=== PATIENT | male | born 1955 | race Caucasian/White ===

== ENCOUNTER 2019-05-28 04:56 | Observation (INO) ==
--- NOTE | 2019-04-25 13:40 | PAT Medication Instructions ---
Medication Instructions Date of Service April 25, 2019 Home Medications celecoxib [Celebrex] 100 mg PO QAM ASK your surgeon for instructions celecoxib [Celebrex] 100 mg PO QAM Other Notes If you have any questions please call us at [phone] or [phone] or [phone] or [phone]
--- NOTE | 2019-04-26 08:25 | Anesthesiology Consultation ---
Date of Service April 26, 2019 Assessment & Plan (1) Encounter for pre-operative examination: Chart Review Chart Review: Acceptable Risk for Surgery (pending pre op testing (EKG, CXR and labs)) and Patient seen in Pre Admission Testing Teaching & Discussion Instructed NPO after midnight before surgery, except medications with 15 cc of water. Medication instructions provided according to the PAT guidelines. History Surgery Operation Date: 05/28/19 07:00 Proposed Procedures p Left Total Knee Arthroplasty - Serafin Michael MD Height/Weight Height: 5 ft 7 in Weight: 82.8 kg Allergies Allergy/AdvReac Type Severity Reaction Status Date / Time No Known Drug Allergies Allergy Verified 04/19/19 08:58 Medications Home Medications Medication Instructions Recorded Confirmed Last Taken celecoxib [Celebrex] 100 mg PO QAM 04/19/19 04/19/19 Unknown Past Medical History Medical History (Updated 04/26/19 @ 08:31 by Wilfrido Borrero) Osteoarthritis Exercise / Class Metabolic Activity 1 > 8 Run/Swim/Ski/Tennis Past Surgical History Surgical History (Updated 04/26/19 @ 08:21 by Wilfrido Borrero) History of dental surgery Two implants placed with sedation History of tonsillectomy Hx of colonoscopy Past Anesthesia History No Hx of Anesthesia Complications and No Family Hx of Anesthesia Complications History of PONV No Hx of PONV and Hx of Motion Sickness Social History Smoking Status: Never smoker Do You Dip or Chew Tobacco: No Hx Alcohol Use: Yes alcohol intake frequency: a few times a month Hx Substance Use: No Review of Systems Pt denies any recent chest pain, shortness of breath, palpitations, cough, fever or URI. +congestion Physical Exam Vital Signs BP: 122/78 P: 67bpm SPO2: 96% RA T: 98.5 F R: 16 ENMT Mouth: + dental restorations (few crowns and two implants); no chipped teeth and no loose teeth Thyromental Distance: < 3.5 Finger Breadths (3) Mallampati Class: II Neck normal visual inspection; neck extension not limited Respiratory normal respiratory effort Auscultation: lungs clear to auscultation bilaterally Cardiovascular Rate/Rhythm: regular rate and regular rhythm Heart Sounds: + murmur (I/ systolic) Vessels: no carotid bruit Extremities: no edema
--- NOTE | 2019-04-26 09:13 | XRay Report ---
XR chest Pre-admission PA/Lat HISTORY: Preop. COMPARISON: None. FINDINGS: The lungs are clear. Cardiac silhouette is normal in size. No pleural effusions. No pneumot horax. IMPRESSION: No acute process. ACT 112: Negative or not required by law. Electronically signed by: Ethan Mcpherson M.D. 04/26/2019 9:11 AM
[2019-04-26 10:24] LABS: Basophils # (auto) 0.02 K/uL (0-0.2); Basophils % (auto) 0.3 %; Eosinophils # (auto) 0.24 K/uL (0-0.5); Eosinophils % (auto) 3.2 %; Hematocrit (blood only) 44.8 % (42-52); Hemoglobin 15.7 g/dL (14.0-18.0); Immature Granulocytes # (auto) 0.01 K/uL (0.00-0.02); Immature Granulocytes % (auto) 0.1 %; Lymphocytes # (auto) 0.82 K/uL (1.2-3.4); Lymphocytes % (auto) 10.9 %; Mean Corpuscular Hemoglobin 32.8 pg (25-34); Mean Corpuscular Volume 93.7 fL (80-100); Mean Platelet Volume 9.1 fL (7.4-10.4); Monocytes # (auto) 0.86 K/uL (0.11-0.59); Monocytes % (auto) 11.4 %; Neutrophils # (auto) 5.58 K/uL (1.4-6.5); Neutrophils % (auto) 74.1 %; Platelet Count 184 K/uL (130-400); RDW Coefficient of Variation 12.8 % (11.5-14.5); RDW Standard Deviation 44.1 fL (36.4-46.3); Red Blood Count 4.78 M/uL (4.7-6.1); White Blood Count 7.53 K/uL (4.8-10.8)
[2019-04-26 10:31] LABS: BUN Creatinine Ratio 18.8 (10-20); Calcium 8.9 mg/dl (8.5-10.1); Creatinine Clr Calc Pharmacy 73.4 ml/min; Est GFR (African American) 86.1; Est GFR (Non-African American) 74.3; Potassium 4.2 mmol/L (3.5-5.1)
[2019-04-26 10:37] LABS: Partial Thromboplastin Time 28.2 Seconds (21.0-31.0); Prothrombin Time 10.1 Seconds (9.0-12.0)
--- NOTE | 2019-05-25 15:55 | History and Physical Report ---
DATE OF ADMISSION: 05/28/2019 CHIEF COMPLAINT: Bilateral knee pain and discomfort, left side greater than right. 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 He has a long history of bilateral knee pain and discomfort that I have been following for the past 10 years. He has got chronic ACL deficiencies from his wrestling injuries. He has developed increased pain and discomfort, which has become less successful with conservative care. He has been through various types of anti-inflammatories and had injections in his knees every 3 months for the past 5+ years. He has a limited walking tolerance. He is less able to maintain an active lifestyle. He has nighttime pain. He has more and more pain with exercise and would like to have his left knee fixed. PAST MEDICAL HISTORY: Noncontributory. PREVIOUS SURGERIES: None. ALLERGIES: None. CURRENT MEDICATIONS: Include Celebrex. SOCIAL HISTORY: Significant for a 63-year-old male. 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 He does not smoke. No significant alcohol intake. FAMILY HISTORY: Noncontributory. REVIEW OF HISTORY: Negative for diabetes, neurologic problem, vascular problems or bleeding disorders. Denies any chest pain or shortness of breath. No history of DVT or PE. No known bleeding problems. PHYSICAL EXAMINATION: GENERAL: Reveals a healthy, pleasant, middle-aged male. He looks to be in excellent health. HEENT: Benign. NECK: Supple with no lymphadenopathy. LUNGS: Clear to auscultation. HEART: Has regular rate and rhythm. ABDOMEN: Soft, nontender, nondistended. EXTREMITIES: Grossly neurovascularly intact except as follows: Examination of both knees reveals patient walks with a varus alignment to his knees. Examination of the left knee reveals varus alignment with a moderate-sized knee effusion. Range of motion is about 5 degrees short of full extension to about 105-110 degrees of flexion. Pretty stiff with flexion and pain. He has got a positive Mary. No pivot. No varus or valgus instability. No pain with hip motion. He is neurologically intact. X-RAYS: X-rays of the left knee were reviewed. It shows advanced left knee medial compartment DJD. He has got complete loss of his medial joint space. He has subchondral sclerosis. He has osteophytes off the medial femoral condyle and medial tibial plateau. He has got pretty similar, but less severe disease in his right knee. 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 He has got chronic anterior cruciate ligament deficiencies as well. He failed conservative treatment and would like to proceed with left knee replacement. PLAN: We will take him to the operating room and do a left knee replacement. The risks and benefits of this procedure were explained to the patient and include but not limited to DVT, PE, , infection, neurological injury, vascular injury, bleeding problem, pain, limited range of motion, stiffness, failure to relieve his symptoms, incomplete relief of symptoms, need for further surgery in the future, fracture, leg length inequality, nerve palsy, persistent pain, etc. The patient understands and desires to proceed. Informed consent was obtained.
[2019-05-28] MEDS ORDERED: TRANEXAMIC ACID / 0.7% NACL 1000MG/100ML BAG IV ONE (05:39)
[2019-05-28] MEDS ORDERED: FAMOTIDINE 20 MG TAB PO SCH (06:00)
[2019-05-28] MEDS ORDERED: METOCLOPRAMIDE HCL 10 MG TABLET PO SCH (06:00)
[2019-05-28] MEDS ORDERED: GABAPENTIN 600 MG DOSE PO SCH (06:00)
[2019-05-28] MEDS ORDERED: CEFAZOLIN 2000MG 2,000 MG/15 ML SYR IV SCH (06:00)
[2019-05-28] MEDS ORDERED: LR 500ML BOLUS, THEN 15ML/HR IV SCH (06:00)
[2019-05-28] MEDS ORDERED: SCOPOLAMINE 1.5 MG TDSY TD SCH (06:00)
[2019-05-28] MEDS ORDERED: TRANEXAMIC ACID 1,000 MG **IV Intra-op IV SCH (06:00)
[2019-05-28] MEDS ORDERED: LR 60ML/HR IV SCH (06:00)
[2019-05-28] MEDS ORDERED: TRANEXAMIC ACID 1,000 MG **IV Pre-op IV SCH (06:00)
[2019-05-28] MEDS ORDERED: BUPIVACAINE LIPOSOME/PF 266 MG, BUPIVACAINE/EPINEPHRINE 50 ML, SODIUM CHLORIDE 0.9% 30 ... INFIL SCH (06:00)
[2019-05-28] MEDS ORDERED: ACETAMINOPHEN 500 MG TAB PO SCH (06:00)
[2019-05-28] MEDS ORDERED: MIDAZOLAM HCL 1 MG/ML 2ML VIAL ONE ×2 (06:27)
[2019-05-28] MEDS ORDERED: fentaNYL citrate 100 MCG/2 ML VIAL ONE ×2 (06:27→07:23)
[2019-05-28] MEDS ORDERED: BUPIVACAINE 0.5 % 5 MG/1 ML PF 10ML VIAL ONE (06:31)
[2019-05-28] MEDS ORDERED: BUPIVACAINE/EPINEPHRINE 0.25% 1:200,000 30 ML VIAL ONE ×2 (06:31→06:35)
[2019-05-28] MEDS ORDERED: ePHEDrine sulfate 50 MG/ML AMP IV PRN (06:33)
[2019-05-28] MEDS ORDERED: ATROPINE SULFATE 0.1 MG/ML 10ML SYR IV PRN (06:33)
[2019-05-28] MEDS ORDERED: fentaNYL citrate 100 MCG/2 ML VIAL IV PRN (06:33)
[2019-05-28] MEDS ORDERED: ONDANSETRON INJ 2 MG/ML 2 ML VIAL IV PRN ×2 (06:33→09:45)
[2019-05-28] MEDS ORDERED: HYDROmorphone INJ 2 MG/ML SYR/VIAL IV PRN (06:33)
[2019-05-28] MEDS ORDERED: BACITRACIN INJ 50,000 UNIT VIAL ONE (06:35)
[2019-05-28] MEDS ORDERED: SODIUM CHLORIDE 0.9% PF 50 ML VIAL ONE (06:35)
[2019-05-28] MEDS ORDERED: BUPIVACAINE LIPOSOME 1.3% 266 MG/20 ML VIAL ONE (06:35)
--- NOTE | 2019-05-28 06:55 | History & Physical Bridge Note ---
Date of Service May 28, 2019 History & Physical Bridge Note I have examined the patient, reviewed the History & Physical and in the interval since the performance of the History & Physical I have noted the following changes of clinical significance: no changes noted
[2019-05-28] MEDS ORDERED: ONDANSETRON INJ 2 MG/ML 2 ML VIAL ONE (07:02)
[2019-05-28] MEDS ORDERED: PROPOFOL IV EMULSION 10 MG/ML 20 ML VIAL IV ONE ×2 (07:02)
[2019-05-28] MEDS: [UNRECOGNIZED DRUG - REMARK] SCH ×2 (08:05→23:07)
--- NOTE | 2019-05-28 08:40 | Post Operative Brief Note ---
PG Immediate Post Op with CF Date of Surgery May 28, 2019 Pre & Post Diagnosis Operation Date: 05/28/19 07:00 Pre-Op Diagnosis: Left Knee Advanced Degenerative Joint Disease Post-Op Diagnosis: Left Knee Advanced Degenerative Joint Disease I identified the patient and participated in the time-out.: Yes Procedure Operation Date: 05/28/19 07:00 Actual Procedures p Left Total Knee Arthroplasty(Left) - Serafin Michael MD Surgeon Serafin Michael MD Customer Service Supervisor Magali, PAC Estimated Blood Loss 50 Findings Consistent with Post-Op Diagnosis Fluids 700 cc Specimens Specimen Description: A. Left Knee Bone and Tissue Drains Urbina Catheter (A 16 Armenian urbina catheter was inserted by MURALI Garcia, without difficulty, clear yellow urine obtained, output to be monitored by Anesthesia.) Anesthesia Type General Regional Complications none Disposition Accompanied Patient To Recovery: No Disposition: Recovery Room
--- NOTE | 2019-05-28 08:52 | Operative Report ---
Post Operative Report Pre & Post Diagnosis Operation Date: 05/28/19 07:00 Pre-Op Diagnosis: Left Knee Advanced Degenerative Joint Disease Post-Op Diagnosis: Left Knee Advanced Degenerative Joint Disease I identified the patient and participated in the time-out.: Yes Procedure Operation Date: 05/28/19 07:00 Actual Procedures p Left Total Knee Arthroplasty(Left) - Serafin Michael MD Surgeon Serafin Michael MD Distiller Magali, PAC Estimated Blood Loss 50 Findings Consistent with Post-Op Diagnosis Operative findings revealed advanced left knee DJD with extensive grade 4 [id number] disease of the medial femoral condyle medial tibial plateau with punctate bleeding in the medial femoral condyle. He had a varus deformity to his knee with a moderate-sized joint effusion. The patella femoral joint and the lateral compartment revealed some age-related changes only. He did have osteophytes of the medial femoral condyle medial tibial plateau. Fluids 700 cc Specimens Left knee sent for pathology. Drains None. 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 I been treating for the past 10 years with oral medicines as well as intermittent injections. This came less successful over time to the left knee was by the more than the right. X-ray showed advanced DJD. He elected proceed with left total knee arthroplasty. Description of Procedure Operative implants consist of: 1. Biomet Vanguard size 67.5 left stabilized femoral component. 2. Biomet size 79 tibial tray. 3. 10 mm posterior stabilized polyethylene insert. 4. 31 x 8 all poly-patella. Patient was taken to the operating room identified and placed in the operating table supine position protectors were properly padded. IV antibiotics were 5 by anesthesia team. A spinal anesthetic been implemented holding area. And abductor canal block is also been implemented. Salcedo catheter was placed in sterile fashion the left thigh tourniquet was then placed in the left lower extremity was then prepped and draped in usual sterile fashion. Left leg was elevated and exsanguinated with use of an Esmarch interspace at 3 mmHg. Upon making the initial incision the patient was still moving and feeling the leg so a general anesthetic was implemented. Once this was complete the incision was continued down that the leg. This extended from just superior to the patella and just medial to the tibial tubercle. Sharp dissection was cut through subcutaneous tissue down to the extensor mechanism. Medial parapatellar arthrotomy incision was made. Some subperiosteal dissection was carried out medially for the fat pad resected from each patella tendon. The lateral patellofemoral ligament was released and the patella was subluxated laterally. The knee was flexed. The osteophytes were taken off the distal femur P the ACL PCL were then released from the distal femur and the tibia subluxated anteriorly. The external tibial alignment jig was then placed in the interface of tibia and adjusted 14 mm medially. Proximal tibial cut was made to move out a millimeter bone from most efficient aspect of the medial tibial plateau. Some osteophytes were taken off medial and posterior medially. The tibia sized to a size 79. Attention drawn the femur. The distal femur then with a sharp drop with intramedullary canal was suction. A left 6 degree valgus cutting guide was placed. This femoral cutting block was pinned in place. Distal femoral cut was made to take an additional 3 mm of bone off distal femur. Femur was then sized to a size 67.5. Did downsize a slightly. The AP cutting block was pinned parallel to the epicondylar axis which was 5 degrees of external rotation with anterior cut, anterior chamfer, posterior cut, posterior chamfer cuts were made. Box cutting guide was placed and adjusted slightly lateral and the box cut was made. The knee was flexed with the remnants of medial lateral menisci were excised. The osteophytes were taken off the posterior aspect the femur. A trial femoral component was placed for the tibial tray was then pinned in maximum external rotation and the drill and stem punch we used to create defect in proximal tip for the tibial tray. The knee was then trialed the 10 mm insert fit most appropriately. Attention drawn the patella. The patella was cleaned of all soft tissues. Patella thickness measured 23 mm in thickness was cut down to 13. Was sized to a size 31 patella. I did downsize this just slightly to maximize patellofemoral tracking. The locals were drilled for 31 patella. Lateral osteophytes removed. Patella button was placed. Knee was taken through range of motion patella tracked nicely with no thumbs test. Attention turned to placing the permanent components. All trial components removed. A bone plug was placed in the disc femur limit blood blood loss. A double batch Palacos G cement was mixed. A Biomet Vanguard size 67.5 left posterior by femoral component, size 79 tibial tray, 10 mm posterior bite polyethylene insert, 31 x 8 all poly-patella were then cemented in place. Knees brought in full extension total cement hardened. Final cement check was then performed. Pericapsular tissues were injected with total 100 cc of combination of 20 cc of Exparel, 30 cc normal saline, 50 cc of quarter percent Marcaine with epinephrine. Patient did receive 1 g of tranexamic acid per the tourniquet was then let down for final tourniquet time 59 minutes. Hemostasis assured with electrocautery. The extensor mechanism then closed with a combination 1 PDS suture #1 Vicryl suture in [id number] fashion. Extensor mechanism checked found to be intact the subcutaneous tissue then closed with 2 Dexon suture in a buried interrupted fashion skin was closed skin brent. Leg was then cleaned dried and sterile dressing composed Xeroform, 4 x 4's, sterile cast padding, Sebastián bandage were applied. Patient transferred brought out of general anesthesia and transferred to the recovery room in stable condition. Patient tolerated procedure well and there were no complications. I attest to the content of the Intraoperative Record and any orders documented therein. Any exceptions are noted below.
--- NOTE | 2019-05-28 09:09 | Anesthesiology Progress Note ---
Date of Service May 28, 2019 Anesthesia Post Procedure Vital Signs Vital Signs: Temp Pulse Pulse Resp BP Pulse Ox 05/28/19 09:05 77 15 123/68 96 05/28/19 08:55 75 16 117/67 100 05/28/19 08:45 36.6 C 72 12 140/65 98 05/28/19 05:42 36.8 C 66 18 95 Transfer of Care Handoff Completed per policy Notes Mental Status: alert / awake / arousable and participated in evaluation Patient Amnestic to Procedure: Yes Nausea / Vomiting: adequately controlled Pain: adequately controlled Airway Patency, RR, SpO2: stable & adequate BP & HR: stable & adequate Hydration State: stable & adequate Anesthetic Complications: no major complications apparent and Pt Satisfied with anesthetic care
--- NOTE | 2019-05-28 09:14 | XRay Report ---
XR knee LT 1 or 2V routine CLINICAL HISTORY: 63 years-old Male presenting with Surgical Post Op. TECHNIQUE: Frontal and crosstable lateral views of the left knee were obtained. COMPARISON: None. FINDINGS: Postsurgical changes of total left knee arthroplasty with patellar resurfacing. Expected intra-articu lar and soft tissue emphysema. Overlying skin brent in place. No malalignment. No periprosthetic fr acture or lucency. IMPRESSION: Expected postsurgical appearance status post total left knee arthroplasty with patellar resurfacing. ACT 112: Negative or not required by law. Electronically signed by: Segundo Cutler M.D. 05/28/2019 9:13 AM
[2019-05-28] MEDS ORDERED: METOCLOPRAMIDE HCL INJ 5 MG/ML 2 ML VIAL IV PRN (09:45)
[2019-05-28] MEDS ORDERED: TAMSULOSIN HCL 0.4 MG CAP PO PRN (09:45)
[2019-05-28] MEDS ORDERED: NALOXONE HCL 0.4 MG/1 ML VIAL/CARP IV PRN (09:45)
[2019-05-28] MEDS ORDERED: ALUMINUM/MAGNESIUM SUSP 30 ML UDC PO PRN (09:45)
[2019-05-28] MEDS ORDERED: HYDROmorphone HCL 2 MG TAB PO PRN (09:45)
[2019-05-28] MEDS ORDERED: bisacodyL 10 MG SUPP PR PRN (09:45)
[2019-05-28] MEDS ORDERED: HYDROmorphone INJ 0.5 MG/0.5 ML SYR IV PRN (09:45)
[2019-05-28] MEDS ORDERED: MAGNESIUM HYDROXIDE SUSP 30 ML UDC PO PRN (09:45)
[2019-05-28] MEDS: SODIUM CHLORIDE 0.9% 1000ML 1,000 ML IV SCH ×3 (09:56→22:37)
[2019-05-28] MEDS: MULTIVITAMIN TAB PO SCH (10:39)
[2019-05-28] MEDS: DOCUSATE SODIUM 100 MG CAP PO SCH ×2 (10:39→22:17)
[2019-05-28] MEDS: TAPENTADOL HCL ER 50 MG TABCR PO SCH ×2 (10:40→22:17)
[2019-05-28] MEDS: ASPIRIN 81 MG ECTAB PO SCH ×2 (11:53→22:17)
[2019-05-28] MEDS: KETOROLAC 30 MG/ML VIAL IV SCH ×3 (12:12→23:37)
[2019-05-28] MEDS: CEFAZOLIN 2000MG 2,000 MG/15 ML SYR IV SCH ×2 (12:14→22:17)
[2019-05-28] MEDS: ACETAMINOPHEN 500 MG TAB PO SCH ×3 (13:52→22:17)
[2019-05-28] MEDS ORDERED: TRANEXAMIC ACID / 0.7% NACL 1,000 MG/100 ML BAG IV SCH (14:43)
[2019-05-28] MEDS: CHECK SCOPOLAMINE PATCH PLACEMENT SCH ×2 (15:53→23:37)
[2019-05-28] MEDS: ASCORBIC ACID 500 MG TAB PO SCH (16:03)
[2019-05-28] MEDS: FERROUS GLUCONATE 324 MG TAB PO SCH (16:04)
--- NOTE | 2019-05-28 19:11 | Progress Note ---
DATE: 05/28/2019 SUBJECTIVE: A 63-year-old gentleman postop from left knee replacement. He is doing quite well. He has been a bit groggy and feeling foggy, but just starting to have some pain. Just feels kind of an ache. No chest pain or shortness of breath. Not feeling dizzy or lightheaded. OBJECTIVE: VITAL SIGNS: Temperature 36.4. Vital signs stable. GENERAL: Shows a pleasant, middle-aged male. He is sitting up in bed and talking to his . He looks pretty comfortable. LUNGS: Clear to auscultation. HEART: Has a regular rate and rhythm. ABDOMEN: Soft, nontender, nondistended. EXTREMITIES: Grossly neurovascularly intact except as follows: Examination of the left leg reveals the leg to be well aligned. The dressing is clean, dry, and intact. He can dorsiflex and plantarflex his foot appropriately. He is neurologically intact. X-RAYS: X-rays of the left knee from the recovery room are reviewed. It shows a cemented posterior stabilized total knee arthroplasty. Components looked to be in good position. No signs of problems. ASSESSMENT: A 63-year-old gentleman postoperative from a left knee replacement, doing well. His pain is controlled. He is neurologically intact. Feeling a little bit foggy, but getting better as time goes on. PLAN: 1. DVT prophylaxis including thigh-high TEDs, SCDs, and aspirin twice a day. 2. PT/OT. Weight bear as tolerated. Left total knee protocol. 3. Pain control, doing pretty well with current pain regimen. 4. IV antibiotics x24 hours. 5. Disposition: Plan to discharge to home with likely some home health once adequately recovered and medically stable.
[2019-05-28] MEDS: SENNA 8.6 MG TAB PO SCH (22:17)
[2019-05-29] MEDS: [UNRECOGNIZED DRUG - REMARK] SCH ×4 (02:02→02:05)
[2019-05-29] MEDS: ACETAMINOPHEN 500 MG TAB PO SCH ×3 (05:03→20:25)
[2019-05-29] MEDS: KETOROLAC 30 MG/ML VIAL IV SCH ×3 (05:03→17:24)
[2019-05-29 07:13] LABS: Hematocrit (blood only) 38.5 % (42-52); Hemoglobin 13.3 g/dL (14.0-18.0); Mean Corpuscular Hemoglobin 32.3 pg (25-34); Mean Corpuscular Hgb Conc 34.5 g/dL (32-36); Mean Corpuscular Volume 93.4 fL (80-100); Mean Platelet Volume 8.8 fL (7.4-10.4); Platelet Count 156 K/uL (130-400); RDW Coefficient of Variation 13.3 % (11.5-14.5); RDW Standard Deviation 45.6 fL (36.4-46.3); Red Blood Count 4.12 M/uL (4.7-6.1); White Blood Count 6.32 K/uL (4.8-10.8)
[2019-05-29 07:39] LABS: BUN Creatinine Ratio 13.7 (10-20); Calcium 7.9 mg/dl (8.5-10.1); Creatinine Clr Calc Pharmacy 70.4 ml/min; Est GFR (African American) 82.4; Est GFR (Non-African American) 71.1; Potassium 4.4 mmol/L (3.5-5.1)
[2019-05-29] MEDS ORDERED: dexAMETHasone 4 MG TAB PO SCH (08:00)
--- NOTE | 2019-05-29 08:17 | Anesthesiology Progress Note ---
Date of Service May 29, 2019 Anesthesia Post Procedure Vital Signs Vital Signs: Temp Pulse Pulse Resp BP Pulse Ox 05/29/19 07:05 37.3 C 56 L 22 111/68 96 05/29/19 03:35 37.1 C 64 16 116/78 96 05/28/19 23:12 37.0 C 51 L 16 130/73 98 05/28/19 19:29 36.7 C 49 L 17 124/71 99 05/28/19 15:23 36.4 C L 52 L 17 118/73 98 05/28/19 12:45 50 L 12 115/72 100 05/28/19 11:45 67 14 110/69 91 05/28/19 10:44 47 L 16 114/69 98 05/28/19 10:15 52 L 14 118/72 96 05/28/19 09:45 36.5 C 53 L 14 126/70 96 05/28/19 09:25 36.2 C L 58 L 15 117/69 95 05/28/19 09:15 65 15 107/70 94 05/28/19 09:05 77 15 123/68 96 05/28/19 08:55 75 16 117/67 100 05/28/19 08:45 36.6 C 72 12 140/65 98 Notes Mental Status: alert / awake / arousable and participated in evaluation Patient Amnestic to Procedure: Yes Nausea / Vomiting: adequately controlled Pain: adequately controlled Airway Patency, RR, SpO2: stable & adequate BP & HR: stable & adequate Hydration State: stable & adequate Anesthetic Complications: no major complications apparent and Pt Satisfied with anesthetic care
[2019-05-29] MEDS: ASPIRIN 81 MG ECTAB PO SCH ×2 (08:51→20:24)
[2019-05-29] MEDS: DOCUSATE SODIUM 100 MG CAP PO SCH ×2 (08:52→20:25)
[2019-05-29] MEDS: FERROUS GLUCONATE 324 MG TAB PO SCH ×2 (08:52→17:12)
[2019-05-29] MEDS: MULTIVITAMIN TAB PO SCH (08:52)
[2019-05-29] MEDS: ASCORBIC ACID 500 MG TAB PO SCH ×2 (08:52→17:12)
[2019-05-29] MEDS: TAPENTADOL HCL ER 50 MG TABCR PO SCH ×2 (08:53→20:27)
--- NOTE | 2019-05-29 11:05 | Progress Note ---
DATE: 05/29/2019 SUBJECTIVE: A 63-year-old gentleman postop day 1 from a left knee replacement. He is doing okay. Having quite a bit more pain today than he had last evening. No chest pain or shortness of breath. Not feeling dizzy or lightheaded. He has had some intermittent confusion. OBJECTIVE: VITAL SIGNS: Temperature 37.3. Vital signs stable. GENERAL: Shows a pleasant, middle-aged male. He is sitting in his wheelchair at bedside. He looks reasonably comfortable. He is currently awake, alert and oriented. EXTREMITIES: Examination of the left knee reveals the dressing to be clean, dry, and intact. He can dorsiflex and plantarflex his foot appropriately. He is neurologically intact. Brisk refill. LABORATORY DATA: Hemoglobin is 13.3. Hematocrit 38.5. Electrolytes are stable. ASSESSMENT: A 63-year-old gentleman postop day 1 from a left total knee replacement, doing reasonably well. Had a little bit of intermittent confusion, but did not get much sleep last night. He has got more pain than he had yesterday but nothing out of the ordinary. PLAN: 1. DVT prophylaxis including thigh-high TEDs, SCDs, and aspirin twice a day. 2. PT/OT. Weight bear as tolerated. Left total knee protocol. 3. Pain control, doing okay with current pain regimen. We are going to encourage him to take some pain pills. 4. Disposition: Plan to discharge to home with some home health once adequately recovered and medically stable.
[2019-05-29] MEDS: SENNA 8.6 MG TAB PO SCH (20:25)
[2019-05-30] MEDS: KETOROLAC 30 MG/ML VIAL IV SCH ×2 (02:11→06:19)
[2019-05-30] MEDS: ACETAMINOPHEN 500 MG TAB PO SCH ×2 (05:17→09:35)
[2019-05-30] MEDS: DOCUSATE SODIUM 100 MG CAP PO SCH (09:28)
[2019-05-30] MEDS: TAPENTADOL HCL ER 50 MG TABCR PO SCH (09:29)
[2019-05-30] MEDS: ASCORBIC ACID 500 MG TAB PO SCH (09:29)
[2019-05-30] MEDS: MULTIVITAMIN TAB PO SCH (09:30)
[2019-05-30] MEDS: ASPIRIN 81 MG ECTAB PO SCH (09:30)
--- NOTE | 2019-05-30 09:53 | Progress Note ---
DATE: 05/30/2019 SUBJECTIVE: A 63-year-old gentleman postop day 2 from a left knee replacement. He is doing pretty well. His pain has much improved today. No chest pain or shortness of breath. Not feeling dizzy or lightheaded. Therapy went pretty well. OBJECTIVE: VITAL SIGNS: Temperature 36.7. Vital signs stable. GENERAL: Shows a pleasant, middle-aged male. He is sitting up in his bed, using his computer this morning. EXTREMITIES: Examination of the left leg reveals the leg to be well aligned. Dressing is clean, dry and intact. Calf is soft and supple. Mild swelling. He is neurologically intact. ASSESSMENT: A 63-year-old gentleman postop day 2 from a left knee replacement, doing pretty well. His pain is controlled. He is neurologically intact. PLAN: 1. DVT prophylaxis including thigh-high TEDs, SCDs, and aspirin twice a day. 2. PT/OT. Weight bear as tolerated. Left total knee protocol. 3. Pain control, doing pretty well with current pain regimen. 4. Disposition: Plan to discharge to home later today if does okay in therapy and pain controlled.
[2019-05-30] MEDS: FERROUS GLUCONATE 324 MG TAB PO SCH (10:17)
--- NOTE | 2019-05-31 18:18 | Discharge Summary ---
ADMITTING PHYSICIAN AND SURGEON: Dr. Serafin Michael. ADMITTING DIAGNOSIS: Left knee degenerative joint disease. SURGERY PERFORMED: Left total knee arthroplasty. SECONDARY DIAGNOSIS: Noncontributory. CONSULTS: None obtained. HISTORY AND PHYSICAL EXAMINATION: Well documented in the patient's chart. HOSPITAL COURSE: The patient was admitted on 05/28/2019 underwent total knee arthroplasty, tolerated the procedure well. There were no complications. He was transferred to the PACU postoperatively and later to the orthopedic floor for further care. He was given Ancef for antibiotic prophylaxis, LM stockings, SCDs and aspirin for DVT prophylaxis. Hemoglobin, hematocrit and vital signs were monitored during his hospital stay and remained stable, did not require any blood transfusions. There were no complications. By postoperative day 2, he was tolerating a regular diet, pain was controlled with oral pain medicine. He was participating in physical therapy. Postop day 2, he was discharged home, set up with home health services. He was given printed discharge instructions as well as new prescriptions for extra strength Tylenol, aspirin and hydromorphone. Continue his home medicines. Continue physical therapy, weightbearing as tolerated, LM stockings. Follow up approximately 2 weeks postop or sooner if there are any problems or concerns.
== END 2019-05-30 10:26 | disposition home health service (06) ==
LOC: ASU 04:56 → INTOOBSV 08:44 → 3E 08:44

== ENCOUNTER 2021-05-13 07:43 | Inpatient (IN) ==
[2021-05-13] MEDS ORDERED: SODIUM CHLORIDE 0.9% 1000ML 1,000 ML IV STA (07:58)
[2021-05-13] MEDS ORDERED: ASPIRIN CHEW 324 MG PO STA (07:58)
[2021-05-13] MEDS ORDERED: NITROGLYCERIN SL 0.4 MG/TAB TAB SL PRN (07:58)
[2021-05-13] MEDS ORDERED: MIDAZOLAM HCL 1 MG/ML 2ML VIAL ONE (08:03)
[2021-05-13] MEDS ORDERED: niCARdipine HCL INJ 2.5 MG/ML 10 ML AMP ONE (08:03)
[2021-05-13] MEDS ORDERED: HEPARIN (PORCINE) 1000 UNIT/ML 10 ML (CATH LAB USE ONLY) ONE (08:03)
[2021-05-13] MEDS ORDERED: fentaNYL citrate 100 MCG/2 ML VIAL ONE ×2 (08:04→08:12)
[2021-05-13] MEDS ORDERED: NITROGLYCERIN/D5W 100MCG/ML 20ML SYR ONE (08:04)
[2021-05-13] MEDS ORDERED: HEPARIN SOD (PORCINE) 1000 UNIT/ML ONE (08:05)
[2021-05-13] MEDS ORDERED: ONDANSETRON INJ 2 MG/ML 2 ML VIAL ONE (08:06)
[2021-05-13] MEDS ORDERED: AMIODARONE / D5W 150 MG/100 ML BAG IV ONE (08:09)
[2021-05-13] MEDS ORDERED: AMIODARONE 150MG / 100ML D5W IV ONE (08:09)
[2021-05-13] MEDS ORDERED: fentaNYL citrate 100 MCG/2 ML VIAL IV ONE (08:12)
[2021-05-13] MEDS ORDERED: NITROGLYCERIN 2% OINTMENT 30GM TUBE EXT ONE (08:15)
[2021-05-13] MEDS ORDERED: NITROGLYCERIN 2% OINTMENT 30GM TUBE ONE (08:15)
[2021-05-13 08:19] LABS: Basophils # (auto) 0.03 K/uL (0-0.2); Basophils % (auto) 0.5 %; Eosinophils # (auto) 0.32 K/uL (0-0.5); Hematocrit (blood only) 45.7 % (42-52); Hemoglobin 16.2 g/dL (14.0-18.0); Immature Granulocytes # (auto) 0.01 K/uL (0.00-0.02); Immature Granulocytes % (auto) 0.2 %; Lymphocytes # (auto) 2.02 K/uL (1.2-3.4); Lymphocytes % (auto) 31.4 %; Mean Corpuscular Hemoglobin 33.1 pg (25-34); Mean Corpuscular Hgb Conc 35.4 g/dL (32-36); Mean Corpuscular Volume 93.3 fL (80-100); Mean Platelet Volume 8.9 fL (7.4-10.4); Monocytes % (auto) 10.9 %; Neutrophils # (auto) 3.35 K/uL (1.4-6.5); Platelet Count 278 K/uL (130-400); RDW Coefficient of Variation 13.1 % (11.5-14.5); RDW Standard Deviation 44.8 fL (36.4-46.3); White Blood Count 6.43 K/uL (4.8-10.8)
[2021-05-13] MEDS ORDERED: RAPID SEQUENCE INDUCTION BAG ONE (08:19)
[2021-05-13 08:22] LABS: iSTAT Creatinine 1.1 mg/dl (0.6-1.3); iSTAT Hemoglobin 15.6 g/dl (14.0-18.0); iSTAT Ionized Calcium 1.15 mmol/l (1.12-1.32); iSTAT Potassium 3.1 mmol/L (3.3-5.0)
[2021-05-13] MEDS ORDERED: Standard Conc 16mcg/mL; 8mg in 500mL IV SCH (08:22)
[2021-05-13] MEDS ORDERED: NOREPINEPHRINE/D5W 8 MG/508 ML IV ONE (08:22)
[2021-05-13] MEDS ORDERED: AMIODARONE 360MG / 200ML D5W IV ONE (08:26)
[2021-05-13] MEDS ORDERED: AMIODARONE / D5W 360 MG/200 ML BAG IV SCH (08:26)
[2021-05-13 08:32] LABS: Partial Thromboplastin Time 26.5 Seconds (21.0-31.0); Prothrombin Time 10.2 Seconds (9.0-12.0)
--- NOTE | 2021-05-13 08:33 | XRay Report ---
SINGLE VIEW CHEST CLINICAL HISTORY: Atypical chest pain. Heart alert. FINDINGS: An AP, portable, semierect chest radiograph is compared to study dated 04/26/2019. The exam ination is degraded by portable technique and apical lordotic positioning. The cardiac silhouette kimberley ears enlarged. The pulmonary vasculature is noncongested. There is bibasilar atelectasis. No airspace consolidation or large pleural effusion is identified. No pneumothorax is seen. The skeletal structu res appear osteopenic. The bony thorax is grossly intact. Arthritic change is noted in the shoulders. IMPRESSION: Mild cardiac enlargement with no acute cardiopulmonary abnormality. ACT 112: Negative or not required by law. Electronically signed by: Nicolas Kim M.D. 05/13/2021 8:31 AM
[2021-05-13 08:35] LABS: Albumin Level 3.4 gm/dl (3.4-5.0); BUN Creatinine Ratio 12.8 (10-20); Calcium 8.8 mg/dl (8.5-10.1); Creatinine Clr Calc Pharmacy 62.7 ml/min; Est GFR (Non-African American) 61.2 ml/min; Potassium 3.1 mmol/L (3.5-5.1)
--- NOTE | 2021-05-13 08:36 | Emergency Department Note ---
Impression & Plan ST elevation (STEMI) myocardial infarction, Cardiac arrest, CAD (coronary artery disease), cachil dehe coronary artery, Acute respiratory failure with hypoxia, Hypokalemia, Cardiogenic shock ED Provider Note NAME: NYASIA BROOKE AGE: 65 SEX: M : 1955 ARRIVES VIA: Walk-In INFORMANT: patient, ED PROVIDER(S): Tyler Huffman MD Chief Complaint: Chest pain HPI: Patient was initially seen by the physician medical office receptionist assistant Chris Noyola but he did relay a history that the patient had presented with centralized chest pain while working out this morning. Patient does have a history of some aortic valvular disease but had been seen by Estefania in the last year with reportedly no remarkable findings. The patient had developed some centralized chest pain with radiation to the bilateral upper extremities while lifting some weights although these were not heavy weights. Patient did have some nausea and diaphoresis. The patient did not take anything for pain prior to arrival. No reported trauma. The patient did present via triage and I assumed full care at the time that the patient went into a V. fib arrest. ROS: See HPI for pertinent positives and negatives. A total of 10 systems were reviewed and otherwise negative. Past medical history: See below Surgical history: See below Social history: See below Physical Exam: GENERAL: Ill in appearance, pale and diaphoretic, chest compressions being completed. EYE EXAM: Normal conjunctiva. PERRL, no anisocoria and EOM's grossly intact w/o pain. OROPHARYNX: Moist mucus membranes. Grossly normal dentition. NECK: Supple, no nuchal rigidity, no adenopathy. LUNGS: Clear to auscultation. [id number] breaths being given. HEART: NSR, no MRG. ABDOMEN: Abdomen soft, no masses. BACK: No CVA TTP. SKIN: No rashes and no bruising. UPPER EXTREMITIES: Upper extremities are grossly normal. LOWER EXTREMITIES: Grossly normal, no edema. NEURO EXAM: GCS 3. Differential diagnoses: Cardiac ischemia, aortic dissection, pulmonary embolism, pneumothorax, pneumonia, pericarditis, myocarditis, esophageal rupture, GERD, cholecystitis, pancreatitis, musculoskeletal, as well as other pathologies. Course: Patient was seen and evaluated the bedside. Full history physical exam was performed. EKG interpreted by me Sinus bradycardia rate of 59, normal intervals, normal axis, elevation in V2, possible hyperacute T waves in the lateral leads. This is changed from comparison EKG April 26, 2019. Repeat EKG interpreted by me Wide-complex tachycardia, rate 144, left axis deviation. Imaging Studies: See Below Cardiac monitoring: An order was placed for continuous cardiac monitoring. The monitor shows a rate of 125 with tachycardic rhythm. Procedures: Endotracheal Intubation performed by Dr. Huffman Indication: Airway protection pending likely cardiac catheterization procedure status post cardiac arrest. The patient was on 96% oxygen via NRB prior to the procedure. Suction, airway equipment, RSI drugs, respiratory equipment, and appropriate personnel were prepared prior to the initiation of the procedure. A time out was taken. Induction was performed with 20 mg of etomidate and paralysis with rocuronium 80 mg. After observing the clinical benefit of the medications, the airway was easily visualized utilizing a MAC 3 0 video laryngoscope A 7.5 size ETT tube was placed atraumatically to 23 cm using standard technique. The cuff inflated without signs of malfunction. There were bilateral breath sounds, positive colo rmetric change, no gastric sounds, a good capnography waveform, and post procedure pulse oximetry was 97%. There were no complications. Sedation was deferred to the cardiac care team. MDM: Patient was initially seen by the physician medical office receptionist assistant Severo Noyola PA-C. He had related that the patient had some chest pain and did appear diaphoretic. Initial EKG shows elevation in V2 and possible hyperacute T waves. While I was reviewing the initial EKG, the patient subsequently had a V. fib arrest w itnessed by nursing and the patient immediately had chest compressions initiated by nursing. I did run the cardiac code via ACLS. A heart alert was called. The patient was given a dose of epi. The patient did have a wide-complex tachycardia and did receive a 200 J shock which did cardiovert the patient. Amiodarone was also ordered. Additional epi given. The patient did resume some spontaneous snoring respirations but the patient did not have definitive pulse during the initial pulse check and chest compressions were continued. Upon repeat pulse check the patient did have a pulse, and the patient subsequently did regain consciousness and was awake and able to form sentences and move all 4 extremities. Patient was given heparin bolus. The amiodarone was infused. Patient was complaining of pain and was given fentanyl and small mount of Nitropaste was applied. Patient had a GCS of 14 and would open eyes to voice. The patient was having bradycardia. He was given a dose of atropine. Given this in conjunction with oxygen saturations in the low 90s high 80s I did make the decision to intubate the patient for airway protection. Patient was having softer blood pressures, so the Nitropaste was removed. Patient was given an additional dose of atropine and epi to try and avoid binta-intubation arrest. The patient was induced with etomidate and subsequently paralyzed with rocur onium. Patient did have intubation completed without any complication. Dr. Nguyễn at this time was in the room and was preparing to take the patient to the Sponsorship [facility]. The patient still had a definitive pulse at the time that the patient was taken to the [facility]. The patient did receive an additional shock as well as a dose of epinephrine per Dr. Nguyễn prior to transport. Upon review the patient's blood work after the patient had been taken to [facility] he had a white count of 6 with a normal H&H and platelet count. The patient's kidney function was unremarkable with mild hypokalemia 3.1. Glucose borderline elevated at 137. Troponin was 0.449. Critical Care: I have personally spent 45 minutes of critical care time in direct management of this patient. This includes bedside care, interpretation of diagnostic studies, and testing, discussion with consultants, patient, and family members, and other require inpatient management activities. This 45 minutes is in excess of all separately billable procedures. Past Med/Surg History Medical History Aortic valve sclerosis CAD (coronary artery disease), cachil dehe coronary artery Degenerative arthritis of knee, bilateral Osteoarthritis Surgical History History of dental surgery Two implants placed with sedation History of left knee replacement History of tonsillectomy Hx of colonoscopy Family History Other Family history non-contributory Social History Smoking Status: Never smoker Second Hand Exposure: Yes ( CHILD); Hx Alcohol Use: Yes Alcohol type: hard liquor Hx Substance Use: No Preferred Language: Malay Communication Ability: Effective Visual Impairment: No Limitations Beliefs That Will Affect Care: None Current Living Situation: Significant Other Feels Safe at Home: Yes Assistive Devices: Walker Allergies Allergies Allergy/AdvReac Type Severity Reaction Status Date / Time No Known Drug Allergies Allergy Verified 12/30/20 09:51 Home Meds Previous Rx's Medication Instructions Recorded celecoxib 100 mg capsule (Celebrex) 100 mg PO QAM PRN #90 cap 06/01/20 amoxicillin 500 mg tablet 2,000 mg PO ONCE #4 tab 12/08/20 Results & Data (ED) Vital Signs Vital Signs - 24 hr 05/13/21 07:47 05/13/21 08:30 Temperature 36.8 C Temperature Source Temporal Artery Scan Pulse Rate 78 Respiratory Rate 18 18 Pulse Oximetry 95 Oxygen Delivery Method Room Air Fraction of Inspired Oxygen 100 Sepsis Recent Fever Within 48 Hours No Sepsis New/Unexplained Change in Mental Status No Sepsis Action Taken by Nursing No Action Required Home Medications Current Medication List: was personally reviewed by me Laboratory Data Attestation: I reviewed the patient's lab results. Result diagrams: 05/13/21 08:05 05/13/21 08:05 Lab Results 05/13/21 05/13/21 05/13/21 Range/Units 08:05 08:05 08:05 WBC 6.43 (4.8-10.8) K/uL RBC 4.90 (4.7-6.1) M/uL Hgb 16.2 (14.0-18.0) g/dL POC Hgb (14.0-18.0) g/dl Hct 45.7 (42-52) % POC Hct (42-52) % MCV 93.3 (80-100) fL MCH 33.1 (25-34) pg MCHC 35.4 (32-36) g/dL RDW Std Deviation 44.8 (36.4-46.3) fL RDW Coeff of Jacque 13.1 (11.5-14.5) % Plt Count 278 (130-400) K/uL MPV 8.9 (7.4-10.4) fL Immature Gran % (Auto) 0.2 % Neut % (Auto) 52.0 % Lymph % (Auto) 31.4 % Nobles % (Auto) 10.9 % Eos % (Auto) 5.0 % Baso % (Auto) 0.5 % Neut # (Auto) 3.35 (1.4-6.5) K/uL Lymph # (Auto) 2.02 (1.2-3.4) K/uL Nobles # (Auto) 0.70 H (0.11-0.59) K/uL Eos # (Auto) 0.32 (0-0.5) K/uL Baso # (Auto) 0.03 (0-0.2) K/uL Immature Gran # (Auto) 0.01 (0.00-0.02) K/uL PT 10.2 (9.0-12.0) Seconds INR 1.0 (0.9-1.1) APTT 26.5 (21.0-31.0) Seconds PTT Ratio 1.0 D-Dimer 680 H* (0-500) ug/L FEU POC Sodium (135-144) mmol/L Sodium 140 (136-145) mmol/L POC Potassium (3.3-5.0) mmol/L Potassium 3.1 L (3.5-5.1) mmol/L POC Chloride (101-112) mmol/L Chloride 107 (98-107) mmol/L Carbon Dioxide 26 (21-32) mmol/L POC Total CO2 (24-31) mmol/L Anion Gap 7.0 (3-11) POC Anion Gap (16-25) mmol/L POC BUN (7-18) mg/dl BUN 16 (7-18) mg/dl Creatinine 1.23 (0.6-1.4) mg/dl POC Creatinine (0.6-1.3) mg/dl Est Cr Clr Drug Dosing 62.7 ml/min Est GFR ( Amer) 71.0 ml/min Est GFR (Non-Af Amer) 61.2 ml/min BUN/Creatinine Ratio 12.8 (10-20) Glucose 137 H (70-99) mg/dl POC Glucose (other) (70-99) mg/dl Calcium 8.8 (8.5-10.1) mg/dl POC Ioniz Calcium Valerie (1.12-1.32) mmol/l Total Bilirubin 0.8 (0.2-1) mg/dl AST 27 (15-37) U/L ALT 32 (12-78) Alkaline Phosphatase 69 (45-117) U/L Troponin I 0.449 H* (0-0.045) ng/ml Total Protein 6.9 (6.4-8.2) gm/dl Albumin 3.4 (3.4-5.0) gm/dl Globulin 3.5 (2.5-4.0) gm/dl Albumin/Globulin Ratio 1.0 (0.9-2) Lipase 233 (73-393) U/L 05/13/21 Range/Units 08:09 WBC (4.8-10.8) K/uL RBC (4.7-6.1) M/uL Hgb (14.0-18.0) g/dL POC Hgb 15.6 (14.0-18.0) g/dl Hct (42-52) % POC Hct 46 (42-52) % MCV (80-100) fL MCH (25-34) pg MCHC (32-36) g/dL RDW Std Deviation (36.4-46.3) fL RDW Coeff of Jacque (11.5-14.5) % Plt Count (130-400) K/uL MPV (7.4-10.4) fL Immature Gran % (Auto) % Neut % (Auto) % Lymph % (Auto) % Nobles % (Auto) % Eos % (Auto) % Baso % (Auto) % Neut # (Auto) (1.4-6.5) K/uL Lymph # (Auto) (1.2-3.4) K/uL Nobles # (Auto) (0.11-0.59) K/uL Eos # (Auto) (0-0.5) K/uL Baso # (Auto) (0-0.2) K/uL Immature Gran # (Auto) (0.00-0.02) K/uL PT (9.0-12.0) Seconds INR (0.9-1.1) APTT (21.0-31.0) Seconds PTT Ratio D-Dimer (0-500) ug/L FEU POC Sodium 140 (135-144) mmol/L Sodium (136-145) mmol/L POC Potassium 3.1 L (3.3-5.0) mmol/L Potassium (3.5-5.1) mmol/L POC Chloride 104 (101-112) mmol/L Chloride (98-107) mmol/L Carbon Dioxide (21-32) mmol/L POC Total CO2 24 (24-31) mmol/L Anion Gap (3-11) POC Anion Gap 16.0 (16-25) mmol/L POC BUN 16 (7-18) mg/dl BUN (7-18) mg/dl Creatinine (0.6-1.4) mg/dl POC Creatinine 1.1 (0.6-1.3) mg/dl Est Cr Clr Drug Dosing ml/min Est GFR ( Amer) ml/min Est GFR (Non-Af Amer) ml/min BUN/Creatinine Ratio (10-20) Glucose (70-99) mg/dl POC Glucose (other) 141 H (70-99) mg/dl Calcium (8.5-10.1) mg/dl POC Ioniz Calcium Valerie 1.15 (1.12-1.32) mmol/l Total Bilirubin (0.2-1) mg/dl AST (15-37) U/L ALT (12-78) Alkaline Phosphatase (45-117) U/L Troponin I (0-0.045) ng/ml Total Protein (6.4-8.2) gm/dl Albumin (3.4-5.0) gm/dl Globulin (2.5-4.0) gm/dl Albumin/Globulin Ratio (0.9-2) Lipase (73-393) U/L Administered Medications Atorvastatin Calcium (Atorvastatin 40 Mg Tab) 80 mg PO QAM [facility] Stop: 06/12/21 10:59 Last Admin: 05/13/21 12:45 Dose: 80 mg Documented by: [id number] Fentanyl Citrate (Fentanyl Bolus From Bag) 50 mcg IV Q60M PRN PRN Reason: Pain or Agitation Stop: 05/27/21 11:13 Last Admin: 05/13/21 11:33 Dose: 50 mcg Documented by: [id number] Eptifibatide (Integrilin) 75 mg in 100 mls @ 14 mls/hr IV .Q7H9M [facility]; Protocol Stop: 05/14/21 04:00 Last Admin: 05/13/21 11:28 Dose: Not Given Documented by: [id number] Norepinephrine Bitartrate (Levophed/D5w) 8 mg in 508 mls @ 16.383 mls/hr IV .Q24H [facility]; Protocol Stop: 06/12/21 09:59 Last Admin: 05/13/21 10:31 Dose: 0.08 mcg/kg/min, 26.2 mls/hr Documented by: [id number] Cosigned by: [id number] Amiodarone HCl/Dextrose (Nexterone / D5w) 360 mg in 200 mls @ 16.667 mls/hr IV .Q12H [place] Stop: 06/12/21 14:24 Last Admin: 05/13/21 13:07 Dose: 0.5 mg/min, 16.7 mls/hr Documented by: [id number] Cosigned by: [id number] Amiodarone HCl/Dextrose (Nexterone / D5w) 360 mg in 200 mls @ 33.333 mls/hr IV .Q6H [place] Stop: 05/13/21 14:25 Last Admin: 05/13/21 11:26 Dose: 1 mg/min, 33.3 mls/hr Documented by: [id number] Cosigned by: [id number] Propofol (Diprivan) 1,000 mg in 100 mls @ 10.32 mls/hr IV .Q9H42M [place]; Protocol Stop: 05/16/21 11:14 Last Admin: 05/13/21 11:32 Dose: 50 mcg/kg/min, 25.8 mls/hr Documented by: [id number] Cosigned by: [id number] Fentanyl Citrate (Fentanyl Citrate) 2,500 mcg in 250 mls @ 2.5 mls/hr IV .Q96H [place]; Protocol Stop: 05/27/21 11:29 Last Admin: 05/13/21 11:32 Dose: 125 mcg/hr, 12.5 mls/hr Documented by: [id number] Cosigned by: [id number] Potassium Chloride (K Sudeep / Wtr) 20 meq in 100 mls @ 50 mls/hr IV Q2H [place]; Protocol Stop: 05/13/21 17:29 Last Admin: 05/13/21 12:46 Dose: 50 mls/hr Documented by: [id number] Propofol (Propofol Bolus From Bag) 20 mg IV Q5M PRN PRN Reason: Sedation Stop: 05/16/21 11:13 Last Admin: 05/13/21 11:33 Dose: 20 mg Documented by: [id number] Cosigned by: [id number] Discontinued Medications Amiodarone HCl/Dextrose (Amiodarone 150mg / 100ml D5w) Confirm Administered Dose 150 mg IV .STK-MED ONE Stop: 05/13/21 08:10 Last Admin: 05/13/21 11:24 Dose: Not Given Documented by: [id number] Amiodarone HCl/Dextrose (Amiodarone 360mg / 200ml D5w) Confirm Administered Dose 360 mg IV .STK-MED ONE Stop: 05/13/21 08:27 Last Admin: 05/13/21 11:26 Dose: Not Given Documented by: [id number] Amiodarone HCl/Dextrose (Amiodarone 150mg / 100ml D5w ([employer] Use Only)) Confirm Administered Dose 150 mg .ROUTE .STK-MED ONE Stop: 05/13/21 08:55 Last Admin: 05/13/21 11:27 Dose: Not Given Documented by: [id number] Aspirin (Aspirin Chew 324 Mg) 324 mg PO NOW STA Stop: 05/13/21 07:59 Last Admin: 05/13/21 11:23 Dose: Not Given Documented by: [id number] Dopamine HCl/Dextrose (Dopamine 400mg / 250ml D5w ([employer] Use Only)) Confirm Administered Dose 400 mg .ROUTE .STDegordian-MED ONE Stop: 05/13/21 08:41 Last Admin: 05/13/21 11:27 Dose: Not Given Documented by: [id number] Eptifibatide (Eptifibatide 2 Mg/Ml 10 Ml Vial ([employer]ons[employer] Manager Use Only)) Confirm Administered Dose 20 mg IV .STK-MED ONE Stop: 05/13/21 08:53 Last Admin: 05/13/21 11:27 Dose: Not Given Documented by: [id number] Eptifibatide (Eptifibatide 2 Mg/Ml 10 Ml Vial ([employer] Use Only)) Confirm Administered Dose 20 mg IV .STDegordian-MED ONE Stop: 05/13/21 08:56 Last Admin: 05/13/21 11:27 Dose: Not Given Documented by: [id number] Fentanyl Citrate (Fentanyl Citrate 100 Mcg/2 Ml Vial) Confirm Administered Dose 100 mcg .ROUTE .STK-MED ONE Stop: 05/13/21 08:05 Last Admin: 05/13/21 11:23 Dose: Not Given Documented by: [id number] Fentanyl Citrate (Fentanyl Citrate 100 Mcg/2 Ml Vial) Confirm Administered Dose 100 mcg .ROUTE .STK-MED ONE Stop: 05/13/21 08:13 Last Admin: 05/13/21 11:25 Dose: Not Given Documented by: [id number] Fentanyl Citrate (Fentanyl Citrate 100 Mcg/2 Ml Vial) 50 mcg IV 0812 ONE Stop: 05/13/21 08:13 Last Admin: 05/13/21 11:25 Dose: Not Given Documented by: [id number] Fentanyl Citrate (Fentanyl Citrate 2,500 Mcg/250 Ml Bag) Confirm Administered Dose 2,500 mcg IV .STK-[employer] ONE Stop: 05/13/21 11:01 Last Admin: 05/13/21 11:30 Dose: 120 mcg Documented by: [id number] Cosigned by: [id number] Heparin Sodium (Porcine) (Heparin (Porcine) 1000 Unit/Ml 10 Ml (Spons[employer] Manager Use Only)) Confirm Administered Dose 10,000 units .ROUTE .ROCKI-MED ONE Stop: 05/13/21 08:04 Last Admin: 05/13/21 11:23 Dose: Not Given Documented by: [id number] Heparin Sodium (Porcine) (Heparin Sod (Porcine) 1000 Unit/Ml) Confirm Administered Dose 1,000 units .ROUTE .ROCKI-[employer] ONE Stop: 05/13/21 08:06 Last Admin: 05/13/21 11:24 Dose: Not Given Documented by: [id number] Heparin Sodium/Sodium Chloride (Heparin In Nss Infusion 1000 Unit/500 Ml (2 U/Ml) Bag) Confirm Administered Dose 3,000 units IV .ROCKI-[employer] ONE Stop: 05/13/21 08:05 Last Admin: 05/13/21 11:24 Dose: Not Given Documented by: [id number] Sodium Chloride (Nss 1000ml) 1,000 mls @ 999 mls/hr IV .Q1H1M STA Stop: 05/13/21 08:58 Last Infusion: 05/13/21 10:32 Dose: 0 mls/hr Documented by: [id number] Admin: 05/13/21 10:31 Dose: 999 mls/hr Documented by: [id number] Norepinephrine Bitartrate (Levophed/D5w) 8 mg in 508 mls @ 16.383 mls/hr IV .Q24H [place]; Protocol Stop: 05/13/21 10:00 Last Admin: 05/13/21 11:26 Dose: Not Given Documented by: [id number] Amiodarone HCl/Dextrose (Nexterone / D5w) 150 mg in 100 mls @ 600 mls/hr IV 080 9 ONE Stop: 05/13/21 08:18 Last Admin: 05/13/21 11:24 Dose: Not Given Documented by: [id number] Metoprolol Tartrate (Metoprolol Tartrate 1 Mg/Ml Vial) Confirm Administered Dose 5 mg IV .STK-MED ONE Stop: 05/13/21 08:54 Last Admin: 05/13/21 11:27 Dose: Not Given Documented by: [id number] Midazolam HCl (Midazolam Hcl 1 Mg/Ml 2ml Vial) Confirm Administered Dose 2 mg .ROUTE .STK-MED ONE Stop: 05/13/21 08:04 Last Admin: 05/13/21 11:23 Dose: Not Given Documented by: [id number] Miscellaneous (Rapid Sequence Induction Bag) Confirm Administered Dose 1 ea .ROUTE .STK-MED ONE Stop: 05/13/21 08:20 Last Admin: 05/13/21 11:25 Dose: Not Given Documented by: [id number] Nicardipine HCl (Nicardipine Hcl Inj 2.5 Mg/Ml 10 Ml Amp) Confirm Administered Dose 25 mg .ROUTE .ST-MED ONE Stop: 05/13/21 08:04 Last Admin: 05/13/21 11:23 Dose: Not Given Documented by: [id number] Nitroglycerin (Nitroglycerin 2% Ointment 30gm Tube) Confirm Administered Dose 18 inch .ROUTE .ST-MED ONE Stop: 05/13/21 08:16 Last Admin: 05/13/21 11:25 Dose: Not Given Documented by: [id number] Nitroglycerin (Nitroglycerin 2% Ointment 30gm Tube) 0.5 inch EXT 0815 ONE Stop: 05/13/21 08:16 Last Admin: 05/13/21 11:25 Dose: Not Given Documented by: [id number] Nitroglycerin/Dextrose (Nitroglycerin/D5w 100mcg/Ml 20ml Syr) Confirm Administered Dose 2,000 mcg .ROUTE .STK-MED ONE Stop: 05/13/21 08:05 Last Admin: 05/13/21 11:24 Dose: Not Given Documented by: [id number] Norepinephrine Bitartrate (Norepinephrine/D5w 8 Mg/508 Ml) Confirm Administered Dose 8 mg IV .STK-MED ONE Stop: 05/13/21 08:23 Last Admin: 05/13/21 11:25 Dose: Not Given Documented by: [id number] Ondansetron HCl (Ondansetron Inj 2 Mg/Ml 2 Ml Vial) Confirm Administered Dose 4 mg .ROUTE .[employer] ONE Stop: 05/13/21 08:07 Last Admin: 05/13/21 11:24 Dose: Not Given Documented by: [id number] Propofol (Propofol Iv Emulsion 10 Mg/Ml 100 Ml Vial) Confirm Administered Dose 1 ,000 mg IV .[employer] ONE Stop: 05/13/21 09:55 Last Admin: 05/13/21 10:31 Dose: 1,000 mg Documented by: [id number] Cosigned by: [id number] Ticagrelor (Ticagrelor 90 Mg Tab) Confirm Administered Dose 180 mg PO .[employer] ONE Stop: 05/13/21 09:40 Last Admin: 05/13/21 11:27 Dose: Not Given Documented by: [id number] Imaging Data Radiologist's Impression: Chest X-Ray 05/13/21 07:58 SINGLE VIEW CHEST CLINICAL HISTORY: Atypical chest pain. Heart alert. FINDINGS: An AP, portable, semierect chest radiograph is compared to study dated 04/26/2019. The examination is degraded by portable technique and apical lordotic positioning. The cardiac silhouette appears enlarged. The pulmonary vasculature is noncongested. There is bibasilar atelectasis. No airspace consolidation or large pleural effusion is identified. No pneumothorax is seen. The skeletal structures appear osteopenic. The bony thorax is grossly intact. Arthritic change is noted in the shoulders. IMPRESSION: Mild cardiac enlargement with no acute cardiopulmonary abnormality. ACT 112: Negative or not required by law. Electronically signed by: Nicolas Kim M.D. 05/13/2021 8:31 AM Chest X-Ray 05/13/21 07:58 SINGLE VIEW CHEST CLINICAL HISTORY: Atypical chest pain. Heart alert. FINDINGS: An AP, portable, semierect chest radiograph is compared to study dated 04/26/2019. The examination is degraded by portable technique and apical lordotic positioning. The cardiac silhouette appears enlarged. The pulmonary vasculature is noncongested. There is bibasilar atelectasis. No airspace consolidation or large pleural effusion is identified. No pneumothorax is seen. The skeletal structures appear osteopenic. The bony thorax is grossly intact. Arthritic change is noted in the shoulders. IMPRESSION: Mild cardiac enlargement with no acute cardiopulmonary abnormality. ACT 112: Negative or not required by law. Electronically signed by: Nicolas Kim M.D. 05/13/2021 8:31 AM Discharge Plan Visit Data Chief Complaint: Chest Pain Stated Complaint: CHEST TIGHTNESS, CHEST PAIN ED Provider: Tyler Huffman ED Midlevel Provider: Severo Noyola Discharge Problem: ST elevation (STEMI) myocardial infarction, Cardiac arrest, CAD (coronary artery disease), cachil dehe coronary artery, Acute respiratory failure with hypoxia, Hypokalemia, Cardiogenic shock Patient Disposition: Admitted As Inpatient Discharge Instructions Interventions: ED Discharge Assessment Last Done: 05/13/21 09:03 Discharge Problem: ST elevation (STEMI) myocardial infarction Qualifiers: Involved coronary artery: LAD coronary artery Qualified Code(s): I21.02 - ST elevation (STEMI) myocardial infarction involving left anterior descending coronary artery CAD (coronary artery disease), cachil dehe coronary artery Qualifiers: [place] vs. transplanted heart: cachil dehe heart Associated angina: with unstable angina Qualified Code(s): I25.110 - Atherosclerotic heart disease of cachil dehe coronary artery with unstable angina pectoris
[2021-05-13] MEDS ORDERED: DOPamine 400MG / 250ML D5W (Cath Lab Use ONLY) ONE (08:40)
[2021-05-13 08:42] LABS: Globulin 3.5 gm/dl (2.5-4.0); Total Protein 6.9 gm/dl (6.4-8.2); Troponin I 0.449 ng/ml (0-0.045)
[2021-05-13 08:43] LABS: D Dimer 680 ug/L FEU (0-500)
[2021-05-13] MEDS ORDERED: EPTIFIBATIDE 2 MG/ML 10 ML VIAL (CATH LAB USE ONLY) IV ONE ×2 (08:52→08:55)
[2021-05-13 08:53] LABS: Bilirubin,Total 0.8 mg/dl (0.2-1)
[2021-05-13] MEDS ORDERED: METOPROLOL TARTRATE 1 MG/ML VIAL IV ONE (08:53)
[2021-05-13] MEDS ORDERED: AMIODARONE 150MG / 100ML D5W (CATH LAB USE ONLY) ONE (08:54)
--- NOTE | 2021-05-13 09:25 | Emergency Department Note ---
ED Visit Note 65-year-old male who presents to emergency department via private transportation for evaluation of upper central chest pain radiating to both shoulders. The patient reports that he was lifting weights this morning, and after completing his set, started to experience chest tightness. The patient denied any nausea. He does report sweatiness as well. The patient denies any pain radiating into the back. The patient drove to the emergency department for further evaluation. The patient reports that he is currently under the management of Dr. Mac for history of aortic valve disease. His last visit with Dr. Mac was this past December. The patient reports that he is due for a repeat echocardiogram next year. The patient rates his discomfort a 6 out of 10. PAST MEDICAL HISTORY: Aortic valve disease, osteoarthritis PAST SURGICAL HISTORY: Left total knee arthroplasty REVIEW OF SYSTEMS: 10 system review was performed and was negative except for pertinent positives and negatives as indicated in history of present illness MEDICATIONS: Medications were reviewed ALLERGIES: No known drug allergies PHYSICAL EXAM: CONSTITUTIONAL: Healthy and well nourished. Patient is diaphoretic, and appears in moderate discomfort. HEENT: No scleral icterus or conjunctival injection/pallor. NECK: Full active range of motion without discomfort. No obvious JVD or carotid bruits. LYMPHATICS: No cervical chain adenopathy. RESPIRATORY: Clear to auscultation bilaterally with no wheezing, crackles, rhonchi or stridor. CARDIOVASCULAR: Regular rate and rhythm with no murmurs, rubs or gallops. GASTROINTESTINAL: Bowel sounds present in all quadrants. Soft and nontender to palpation. MUSCULOSKELETAL: Full range of motion of all joints without discomfort. INTEGUMENTARY: No rash or other significant dermatologic conditions noted. HEMATOLOGIC: No ecchymosis or petechiae. PSYCHIATRIC: Positive affect. NEUROLOGIC: No focal neurologic deficits noted. ED COURSE: Prior to my examination and presenting symptoms, initial labs, ECG and portable chest x-ray were ordered while the patient was being transferred to his examination room. An abbreviated history and physical exam were collected and performed. Given the patient's diaphoresis and chest pain, the case was immediately discussed with Dr. Huffman, ED attending physician. While reviewing ECG findings, the patient went into cardiac arrest with ventricular fibrillation. Patient care was then transferred to Dr. Huffman. Please see his dictation for further treatment and final disposition. DIAGNOSIS: 1. Cardiac arrest 2. Ventricular fibrillation : ST elevation (STEMI) myocardial infarction Qualifiers: Involved coronary artery: LAD coronary artery Qualified Code(s): I21.02 - ST elevation (STEMI) myocardial infarction involving left anterior descending coronary artery CAD (coronary artery disease), [place] coronary artery Qualifiers: [place] vs. transplanted heart: [place] heart Associated angina: with unstable angina Qualified Code(s): I25.110 - Atherosclerotic heart disease of [place] coronary artery with unstable angina pectoris
[2021-05-13] MEDS ORDERED: TICAGRELOR 90 MG TAB PO ONE (09:39)
[2021-05-13] MEDS ORDERED: EPTIFIBATIDE BOLUS/DRIP IV STA (09:40)
[2021-05-13] MEDS ORDERED: ATROPINE SULFATE 0.1 MG/ML 10ML SYR IV PRN (09:40)
[2021-05-13] MEDS ORDERED: ICU PROTOCOL FOR HYPERGLYCEMIA PRN (09:47)
[2021-05-13] MEDS ORDERED: AMIODARONE / D5W 360 MG/200 ML BAG IV ONE (09:52)
[2021-05-13] MEDS ORDERED: STAT IV Infusion **Titration per Protocol STA ×2 (09:52→11:14)
[2021-05-13] MEDS ORDERED: 0.2 MICRON FILTER SET 1 EA IV ONE (09:52)
[2021-05-13] MEDS ORDERED: PROPOFOL IV EMULSION 10 MG/ML 100 ML VIAL IV ONE (09:54)
--- NOTE | 2021-05-13 09:55 | History & Physical Report ---
Date of Service May 13, 2021 Assessment & Plan (1) Cardiac arrest: Plan: Vfib arrest secondary to STEMI, acute LAD occlusion Achieved ROSC after CPR,epi x 2, amiodarone bolus, 2 defib shocks Was intubated for hypoxia and lethargy, on 3 vasopressors, taken to microbiological lab technician, had 2 TAMELA placed to early LAD Weaned down to levophed only for pressors in microbiological lab technician -Admit to ICU -continue amiodarone gtt -continue levophed and wean off as able -has [place] rossana in place, Cardiology recommends inotropes as needed for PA sat < 65, reduced urine output, or rising lactate -brief CPR so no plans for hypothermic protocol -check ECHO -trend trop till peaks -appreciate Cardiology and Blacktop Paver Operator management -remains on vent, follow abg, continue sedation as needed (2) Cardiogenic shock: Plan: as above improving s/p intervention to LAD continue levophed gentle diuresis as able to-defer to ICU and/or Cardiology follow abg, PA pressures (3) Acute respiratory failure with hypoxia: Plan: secondary to cardiac arrest and cardiogenic shock initial CXR negative gentle diuresis remains on vent-ICU managing COVID negative (4) CAD (coronary artery disease), [place] coronary artery: Plan: With STEMI and Vfib arrest as above s/p 2 TAMELA to early LAD, still with diffuse severe disease in RCA not intervened upon acutely Loaded with ticagrelor 180 mg in Warehouse Record Clerk With apical LAD thrombus and severe possibly acute RCA disease continue Integrilin for 18 hours Continue dual-antiplatelet therapy for at least 1 year. Plan for staged PCI of RCA at some point hospitalization pending clinical course Pt quite active prior to admission, exercising 5 days per week, was actually exercising/lifting weights when chest pain occurred No other risk factors for CAD other than age,gender -start high intensity atorvastatin -check lipids, HgbA1C (5) Hypokalemia: Plan: replace with IV KCl follow BMP, mag (6) Hematoma: Plan: right thigh from procedure follow closely follow CBC (7) Aortic valve sclerosis: Plan: mild, followed with ECHO as outpt with Dr. Mac (8) Degenerative arthritis of knee, bilateral: Plan: hold home Celebrex Plan: DVT proph-on DAPT, Integrilin Dispo-admit to ICU History of Present Illness Chief Complaint: Cardiac arrest Primary Care Provider: NO PCP This pt is a 65 yo male with a h/o aortic sclerosis, knee OA who presented to the ER today after having central chest pain radiating to his arms while exercising and lifting weights this AM. In the ER, he had an ECG which showed ST elevation in anteriolateral leads and then pt had nausea and diaphoresis and sudden collapse. Was in Vfib arrest and had immediate CPR performed by nursing staff, KELVIN Vasquez called. Had 2 rounds of epi, shocked x 1 for VFib, given bolus of amiodarone, then was hypoxic, intubated, had ROSC. Was then bradycardic requiring atropine. Heart alert called and pt was requiring 3 vasopressors upon arrival to microbiological lab technician. He hadan acute occlusion in LAD and had 2 TAMELA palced. He also had severe diffuse disease in RCA that was not addressed due to acuity presumably and not primary culprit lesion. He was able to be weaned off vasopressors except levophed. He remains on amiodarone gtt, levophed, and on integrilin gtt at time of arrival to ICU. He had a [place] Rossana catheter placed, femoral sheath removed and was noted to have a small hematoma in the groin which will need observation. Labs notable for elevated trop initially of 0.44, K+ 3.1,and normal LFTs, lipase. COVID-19 test negative He is admitted to the ICU. He is intubated and lethargic when I saw him and is on propofol and fentanyl. He did move his RLE when I touched it with my cold hands. Blacktop Paver Operator reports earlier he was reaching to pull out his ETT. Otherwise, he did not respond to verbal or gentle tactile stimulus Allergies Allergy/AdvReac Type Severity Reaction Status Date / Time No Known Drug Allergies Allergy Verified 12/30/20 09:51 Home Medications Medication Instructions Recorded Confirmed Type celecoxib 100 mg capsule (Celebrex) 100 mg PO QAM PRN #90 cap 06/01/20 12/30/20 Rx amoxicillin 500 mg tablet 2,000 mg PO ONCE #4 tab 12/08/20 12/30/20 Rx Past Med/Surg History Medical History (Updated 05/13/21 @ 12:07 by Zora Atkinson MD) Aortic valve sclerosis CAD (coronary artery disease), [place] coronary artery Degenerative arthritis of knee, bilateral Osteoarthritis Surgical History History of dental surgery Two implants placed with sedation History of left knee replacement History of tonsillectomy Hx of colonoscopy Family History Other Family history non-contributory Social History Smoking Status: Never smoker Second Hand Exposure: Yes ( CHILD); Hx Alcohol Use: Yes Alcohol type: hard liquor Hx Substance Use: No Preferred Language: Ukrainian Communication Ability: Effective Visual Impairment: No Limitations Beliefs That Will Affect Care: None Current Living Situation: Significant Other Feels Safe at Home: Yes Assistive Devices: Walker Review of Systems Review of Systems: Unobtainable due to cognitive status Physical Exam Constitutional: WD/WN, vitals as above + lethargic and + mechanically ventilated Eyes: PERRL, conjunctivae normal, anicteric sclerae ENMT: external ear and nose normal, oropharynx normal with ETT in place Neck: trachea midline, no thyromegaly Respiratory: normal respiratory effort, lungs clear to auscultation Cardiovascular: RRR, no murmur, no edema Vessels: dorsalis pedis pulses present LUE 2 PIVs Rt groin catheter Chest (Breasts): Chest: normal inspection of chest Gastrointestinal (Abdomen): normal bowel sounds, soft, nontender, no hepatosplenomegaly Musculoskeletal: Extremities: + extremities abnormal to inspection (rt lateral hip with hematoma,dressing in groin), no cyanosis and no clubbing Skin: no rashes, warm and dry Neurologic: + obtunded Genitourinary: no testicular masses, no penis abnormality Salcedo in place Lymphatic: no lymphedema Results & Data Results & Data ([facility]) Vital Signs (Past 12 Hours) Vital Signs Temp Pulse Resp Pulse Ox 05/13/21 08:50 22 05/13/21 08:30 18 05/13/21 07:47 36.8 C 78 18 95 Laboratory Results 05/13/21 05/13/21 05/13/21 Range/Units 09:00 08:09 08:05 WBC (4.8-10.8) K/uL RBC (4.7-6.1) M/uL Hgb (14.0-18.0) g/dL POC Hgb 15.6 (14.0-18.0) g/dl Hct (42-52) % POC Hct 46 (42-52) % MCV (80-100) fL MCH (25-34) pg MCHC (32-36) g/dL RDW Std Deviation (36.4-46.3) fL RDW Coeff of Jacque (11.5-14.5) % Plt Count (130-400) K/uL MPV (7.4-10.4) fL Immature Gran % (Auto) % Neut % (Auto) % Lymph % (Auto) % [place] % (Auto) % Eos % (Auto) % Baso % (Auto) % Neut # (Auto) (1.4-6.5) K/uL Lymph # (Auto) (1.2-3.4) K/uL [place] # (Auto) (0.11-0.59) K/uL Eos # (Auto) (0-0.5) K/uL Baso # (Auto) (0-0.2) K/uL Immature Gran # (Auto) (0.00-0.02) K/uL PT 10.2 (9.0-12.0) Seconds INR 1.0 (0.9-1.1) APTT 26.5 (21.0-31.0) Seconds PTT Ratio 1.0 D-Dimer 680 H* (0-500) ug/L FEU POC Sodium 140 (135-144) mmol/L Sodium (136-145) mmol/L POC Potassium 3.1 L (3.3-5.0) mmol/L Potassium (3.5-5.1) mmol/L POC Chloride 104 (101-112) mmol/L Chloride (98-107) mmol/L Carbon Dioxide (21-32) mmol/L POC Total CO2 24 (24-31) mmol/L Anion Gap (3-11) POC Anion Gap 16.0 (16-25) mmol/L POC BUN 16 (7-18) mg/dl BUN (7-18) mg/dl Creatinine (0.6-1.4) mg/dl POC Creatinine 1.1 (0.6-1.3) mg/dl Est Cr Clr Drug Dosing ml/min Est GFR ( Amer) ml/min Est GFR (Non-Af Amer) ml/min BUN/Creatinine Ratio (10-20) Glucose (70-99) mg/dl POC Glucose (other) 141 H (70-99) mg/dl Calcium (8.5-10.1) mg/dl POC Ioniz Calcium Valerie 1.15 (1.12-1.32) mmol/l Total Bilirubin (0.2-1) mg/dl AST (15-37) U/L ALT (12-78) Alkaline Phosphatase (45-117) U/L Troponin I (0-0.045) ng/ml Total Protein (6.4-8.2) gm/dl Albumin (3.4-5.0) gm/dl Globulin (2.5-4.0) gm/dl Albumin/Globulin Ratio (0.9-2) Lipase (73-393) U/L SARS-CoV-2, RNA, NAAT NEGATIVE (NEGATIVE) 05/13/21 05/13/21 Range/Units 08:05 08:05 WBC 6.43 (4.8-10.8) K/uL RBC 4.90 (4.7-6.1) M/uL Hgb 16.2 (14.0-18.0) g/dL POC Hgb (14.0-18.0) g/dl Hct 45.7 (42-52) % POC Hct (42-52) % MCV 93.3 (80-100) fL MCH 33.1 (25-34) pg MCHC 35.4 (32-36) g/dL RDW Std Deviation 44.8 (36.4-46.3) fL RDW Coeff of Jacque 13.1 (11.5-14.5) % Plt Count 278 (130-400) K/uL MPV 8.9 (7.4-10.4) fL Immature Gran % (Auto) 0.2 % Neut % (Auto) 52.0 % Lymph % (Auto) 31.4 % [place] % (Auto) 10.9 % Eos % (Auto) 5.0 % Baso % (Auto) 0.5 % Neut # (Auto) 3.35 (1.4-6.5) K/uL Lymph # (Auto) 2.02 (1.2-3.4) K/uL [place] # (Auto) 0.70 H (0.11-0.59) K/uL Eos # (Auto) 0.32 (0-0.5) K/uL Baso # (Auto) 0.03 (0-0.2) K/uL Immature Gran # (Auto) 0.01 (0.00-0.02) K/uL PT (9.0-12.0) Seconds INR (0.9-1.1) APTT (21.0-31.0) Seconds PTT Ratio D-Dimer (0-500) ug/L FEU POC Sodium (135-144) mmol/L Sodium 140 (136-145) mmol/L POC Potassium (3.3-5.0) mmol/L Potassium 3.1 L (3.5-5.1) mmol/L POC Chloride (101-112) mmol/L Chloride 107 (98-107) mmol/L Carbon Dioxide 26 (21-32) mmol/L POC Total CO2 (24-31) mmol/L Anion Gap 7.0 (3-11) POC Anion Gap (16-25) mmol/L POC BUN (7-18) mg/dl BUN 16 (7-18) mg/dl Creatinine 1.23 (0.6-1.4) mg/dl POC Creatinine (0.6-1.3) mg/dl Est Cr Clr Drug Dosing 62.7 ml/min Est GFR ( Amer) 71.0 ml/min Est GFR (Non-Af Amer) 61.2 ml/min BUN/Creatinine Ratio 12.8 (10-20) Glucose 137 H (70-99) mg/dl POC Glucose (other) (70-99) mg/dl Calcium 8.8 (8.5-10.1) mg/dl POC Ioniz Calcium Valerie (1.12-1.32) mmol/l Total Bilirubin 0.8 (0.2-1) mg/dl AST 27 (15-37) U/L ALT 32 (12-78) Alkaline Phosphatase 69 (45-117) U/L Troponin I 0.449 H* (0-0.045) ng/ml Total Protein 6.9 (6.4-8.2) gm/dl Albumin 3.4 (3.4-5.0) gm/dl Globulin 3.5 (2.5-4.0) gm/dl Albumin/Globulin Ratio 1.0 (0.9-2) Lipase 233 (73-393) U/L SARS-CoV-2, RNA, NAAT (NEGATIVE) Diagnostic Findings Chest X-Ray 05/13/21 07:58 SINGLE VIEW CHEST CLINICAL HISTORY: Atypical chest pain. Heart alert. FINDINGS: An AP, portable, semierect chest radiograph is compared to study dated 04/26/2019. The examination is degraded by portable technique and apical lordotic positioning. The cardiac silhouette appears enlarged. The pulmonary vasculature is noncongested. There is bibasilar atelectasis. No airspace consolidation or large pleural effusion is identified. No pneumothorax is seen. The skeletal structures appear osteopenic. The bony thorax is grossly intact. A rthritic change is noted in the shoulders. IMPRESSION: Mild cardiac enlargement with no acute cardiopulmonary abnormality. ACT 112: Negative or not required by law. Electronically signed by: Nicolas Kim M.D. 05/13/2021 8:31 AM Code Status & VTE Plan Code Status FULL CODE VTE Prophylaxis Plan VTE Prophylaxis will be ordered: Yes PG Care Time/CCT Total # of Minutes Spent Total Time Spent with Patient: Total time spent is greater than 50% in coordination of care (as documented) at patient's floor/unit and/or counseling patient: Coding Level of Care Code 09849 Initial Inpt Care Lvl 3 Diagnoses Degenerative arthritis of knee, bilateral M17.0 Aortic valve sclerosis I35.8 Cardiac arrest I46.9 CAD (coronary artery disease), [place] coronary artery I25.10 Acute respiratory failure with hypoxia J96.01 Hypokalemia E87.6 Cardiogenic shock R57.0 Hematoma T14.8XXA
--- NOTE | 2021-05-13 10:13 | Cardiac Catheterization ---
[facility] Data: Process Equipment Operator Cardiac Status Clinical evaluation leading to the procedure CAD Presenation: STEMI Anginal Classification: CCS IV Heart Failure: No Cardiogenic Shock within 24 Hours: Yes Cardiac Arrest within 24 Hours: Yes Imaging Studies Past 6 Months: No Stress Studies Past 6 Months: No Diagnostic Physicians Name: Lester Nguyễn MD Status: Emergency Closure Device Percutaneous Entry Location: Femoral Closure Device: StarClose Recommendations: PCI without planned CABG PCI Indication: Immediate PCI for STEMI First Noted: First EKG Reason For Delay in PCI:: Cardiac Arrest &/or Lesion Segment Name: Mid LAD Culprit Artery: Yes Stenosis Prior to Rx (%): 100 Chronic Total Occlusion: No IVUS: No FFR: No Pre-Procedure MANDY Flow: 0 Previously Treated Lesion: No Lesion Complexity: Non-High/Non-C Lesion Length (mm): 20 Thrombus Present: Yes Bifurcation Lesion: No Guidewire Across Lesion: Stenosis Post-Procedure (%): 0 Post-Procedure MANDY Fl ow: 3 Devices(s) Deployed: Yes Yes Intraprocedure Events Significant Disection: No Perforation: No Cardiac Cath Procedure Full Procedure Date May 13, 2021 Pre-Procedure Diagnosis Pre-Procedure Diagnosis: STEMI AUC Score AUC Score: 9 Post-Procedure Diagnosis Post-Procedure Diagnosis: Severe CAD, Successful PCI and Elevated Intracardiac Pressures Procedure(s) Performed Procedure(s) Performed: Coronary Angiography, Left Heart Cath, Right Heart Cath, Drug Eluting Stent and Ultrasound Guided Vascular Access Dedenter Lester Nguyễn MD Hand Woven Carpet And Rug Mender(s) Alireza Estimated Blood Loss Estimated Blood Loss: 15 Medication(s) Medication(s): Dopamine, Epinephrine, Fentanyl, Heparin, Integrilin, Lidocaine 1%, Norepinephrine and Versed Medication(s): Ticagrelor Summary of Findings Indication: STEMI/Heart Alert Access: 6 Fr right HEEL SEAT POUNDER under ultrasound guidance, 7 Fr right CFV under ultrasound guidance Catheters: EBU 3.5 guide, diagnostic AR-1, 7 Fr Helm Findings: LM -normal caliber, no significant disease LAD -medium caliber, 30% ostial, acute 100% earlymid LAD occlusion just after takeoff of D1. 50% ostial D1 Circumflex -nondominant, medium caliber, mid segment luminal regularities, medium OM 2 without significant disease. Small OM 3, left PL without disease. RCA -dominant, superior/anterior takeoff, sequential hazy 95% mid lesions, 90% distal stenosis. MANDY-3 flow LVEDP -22 RA 9 RV 24/9 PA 24/14 (18) PAWP 15 PaSat 73% AoSat 100% [place] CO/CI 4.2/2.1 -- PCI -- Patient had V. fib arrest in ED requiring defibrillation x2, short CPR and intubation. On arrival to Process Equipment Operator on 3 pressors (norepinephrine, dopamine, epinephrine), amiodarone with systolic pressures in the 50s to 60s. Antithrombotic therapy: Heparin, Integrilin, ticagrelor Procedure: Left main cannulated with EBU 3.5 guide Clinical Research Tech 50 wire passed across lesion into distal vessel Mid LAD lesion predilated with 2.0 compliant balloon with reestablished flow Dilated lesion stented with 2.75 x 22 mm Davis beginning just after takeoff of D1 Stent post-dilated with 3.0 noncompliant balloon Questionable haziness at distal aspect of stent covered with a second TAMELA (2.5 x 12 Davis) Post procedure MANDY 3 flow, stents well expanded with minimal residual stenosis. Mild residual thrombus in apical LAD Post procedure able to wean pressors. Transferred to ICU on norepinephrine 0.1, amiodarone and Integrilin infusion. Arterial Closure: StarClose Summary: 1. Anterior STEMI 2. Cardiac arrest 3. Cardiogenic shock 4. Acute 100% earlymid LAD occlusion 5. Severe non-culprit coronary artery disease -Mid RCA sequential 95% lesions, distal RCA 90% stenosis 6. Mildly elevated left and right-sided filling pressures 7. Normal pulmonary artery pressures 8. Borderline cardiac output post PCI Recommendations: Admit to ICU for continued monitoring Loaded with ticagrelor 180 mg in Process Equipment Operator With apical LAD thrombus and severe, possibly acute RCA disease continue Integrilin for 18 hours Continue dual-antiplatelet therapy for at least 1 year. Trend troponins until peak, Check Echo Gentle diuresis Inotropes as needed for PA sat less than 65, reduced urine output, rising lactat e Continue amiodarone infusion Brief in-hospital CPR. No plans for hypothermic protocol Plan for staged PCI of RCA at some point hospitalization pending clinical course Hemodynamics Rest Ao:: 74/48/62 Final Ao: 92/69/80 LV: 94/22 Recommendations Recommendations: PCI without planned CABG Specimens Specimens: None Radiation Exposure (mGy) 1785 Contrast (mls) 155 Drains Drains: None Anesthesia Moderate 7969-7047 Procedural Complication(s) None Disposition ICU I attest to the content of the Intraoperative Record and any orders documented therein. Any exceptions are noted below. [facility] Card Cath Procedure Codes Cardiac Catheterization Procedure 1: Cardiovascular Cath Procedures: 18320 Coronaries & LHC (+/-LV) & RHC Therapeutic Services & Ancillary Proc Procedure 1: Cardiovascular Tx and Anc Procedures: 94023 Ultrasonic Guidance Vascular Access Procedure 2: Cardiovascular Tx and Anc Procedures: 19083 Ultrasonic Guidance Vascular Access Moderate Sedation Procedure 1: Sedation/Anesthesia: 85378 Mod Sedation by the same physician;Init15 Min Child Age 5 & Up Procedure 2: Sedation/Anesthesia: 91597 Mod Sedation by the same physician; Ea [id number] Minutes Stenting Procedure 1: Cardiovascular Stent Procedures: 13624 Perc transluminal revascularization of acute sub/total occl, aMI PG Care Time/CCT Total # of Minutes Spent Total Time Spent with Patient: Total time spent is greater than 50% in coordination of care (as documented) at patient's floor/unit and/or counseling patient:
[2021-05-13] MEDS: NOREPINEPHRINE/D5W 8 MG/508 ML BAG IV SCH ×2 (10:31→21:16)
[2021-05-13] MEDS ORDERED: fentaNYL citrate 2,500 MCG/250 ML BAG IV ONE (11:00)
--- NOTE | 2021-05-13 11:03 | XRay Report ---
SINGLE VIEW CHEST CLINICAL HISTORY: Respiratory failure. Intubation. Status post cardiac arrest. FINDINGS: An AP, portable, supine chest radiograph is compared to study dated performed earlier the 05/13/2021. An endotracheal tube has been placed. The tip of the catheter projects approximatel y 5.5 cm above the carlos. An enteric tube has been placed. The tip projects below the diaphragm over the proximal stomach. The heart appears mildly enlarged. There is pulmonary vascular congestion. Caleb ateral airspace opacities likely represent interstitial edema. The lungs and pleural spaces are clear . No large pleural effusion or pneumothorax is seen. The skeletal structures are osteopenic. The bony thorax is grossly intact. Degenerative change is noted in the shoulders. IMPRESSION: 1. Endotracheal and enteric tubes have been placed as above. 2. Pulmonary vascular congestion is new from previous, as are bilateral airspace opacities which like ly represent pulmonary edema. Clinical correlation will be required. ACT 112: Negative or not required by law. Electronically signed by: Nicolas Kim M.D. 05/13/2021 11:01 AM
[2021-05-13] MEDS ORDERED: PROPOFOL BOLUS FROM BAG IV PRN (11:14)
--- NOTE | 2021-05-13 11:17 | Critical Care Consultation ---
Date of Consultation May 13, 2021 Assessment & Plan (1) ST elevation (STEMI) myocardial infarction: (2) Cardiogenic shock: (3) Acute respiratory failure with hypoxia: (4) Ischemic cardiomyopathy: -- VDRF Likely secondary to cardiac arrest Continue with ventilatory support Keep RASS -1 Avoid temperature greater than 37.5 --STEMI with cardiac arrest S/p 2 stents in LAD Continue with dual antiplatelet therapy Cardiology on board --Hypotension Likely cardiogenic in nature Continue with Levophed to keep MAP greater than 65 Try to wean it off --Prophylaxis VTE:None GI: Protonix Lines: Right femoral Diet: N.p.o. Plan: Continue with ventilator management Avoid hyperthermia We will gradually go down on FiO2 and the PEEP Case was discussed with at bedside. I have personally spent 55 minutes of critical care time in the direct management of this patient. This is a life/limb threatening event. This includes time spent evaluating patient, direct bedside care, chart review, placing orders, interpretation of diagnostic studies, discussion with consultants, patient, and family members, as well as other required patient management activities. This time is exclusive of all separately billable procedures, and teaching time and separate from and in addition to any other critical care service time. Please note the above document was generated using voice recognition software. It may contain grammatical, syntax or spelling errors. History of Present Illness Attending Physician: Lester Nguyễn MD History of Present Illness 65-year-old male past medical history of aortic stenosis, osteoarthritis of the knee came to the hospital with complaints of chest pain. While in the ED patient showed ST elevation and he went into V. fib and cardiac arrest. CODE BLUE was called. He was shocked x1 and had two rounds of epi. He was also started on amiodarone drip following a bolus. He was taken to the [facility] and two stents were placed in the LAD. Patient is coming to the ICU following that for management. At the time of examination patient was intubated. He was 100% FiO2 saturating 90% He was on low-dose Levophed on amiodarone drip. He had right femoral [place] in place. He was moving all extremities and trying to take the tube out for which he was started on propofol and fentanyl History obtained from previous records. Brief signout given from Dr. Nguyễn Allergies Allergy/AdvReac Type Severity Reaction Status Date / Time No Known Drug Allergies Allergy Verified 12/30/20 09:51 Home Medications Medication Instructions Recorded Confirmed Type celecoxib 100 mg capsule (Celebrex) 100 mg PO QAM PRN #90 cap 06/01/20 12/30/20 Rx amoxicillin 500 mg tablet 2,000 mg PO ONCE #4 tab 12/08/20 12/30/20 Rx Patient History Medical History Aortic valve sclerosis CAD (coronary artery disease), [place] coronary artery Degenerative arthritis of knee, bilateral Osteoarthritis Surgical History History of dental surgery Two implants placed with sedation History of left knee replacement History of tonsillectomy Hx of colonoscopy Family History Other Family history non-contributory Social History Smoking Status: Never smoker Second Hand Exposure: Yes ( CHILD); Hx Alcohol Use: Yes Alcohol type: hard liquor Hx Substance Use: No Preferred Language: [place] Communication Ability: Effective Visual Impairment: No Limitations Director Transition Required: No Beliefs That Will Affect Care: None Current Living Situation: Significant Other Other Information That Helps Us Care for You: No Feels Safe at Home: Yes Safety Concerns: Feels Safe At This Time Assistive Devices: None Review of Systems Review of Systems: Unobtainable due to endotracheal tube Physical Exam Physical Exam: Constitutional: No acute distress HEENT: PERRLA, positive ETT Respiratory system: Good air entry bilaterally, no wheeze, rhonchi, mild crackles bilaterally CVS: S1-S2 positive, no murmurs or gallops Abdomen: Soft, nontender, nondistended, positive bowel sounds x4 Extremities: +2 pulses bilaterally radialis/ dorsalis pedis, no cyanosis, no edema Neuro: Sedated Psych: Unable to assess G/U: Positive Salcedo Skin: no rashes, warm and dry Lymphatic: no cervical or axillary lymphadenopathy Results & Data Results & Data ([facility]) Vital Signs (Past 12 Hours) Vital Signs Temp Pulse Resp Pulse Ox 05/13/21 10:04 87 30 H 97 05/13/21 08:50 22 05/13/21 08:30 18 05/13/21 07:47 36.8 C 78 18 95 Laboratory Results 05/13/21 08:05 05/13/21 08:05 Coding Level of Care Code Critical Care 1st 30-[address] elevation (STEMI) myocardial infarction I21.02 Involved coronary artery: LAD coronary artery Cardiogenic shock R57.0 Acute respiratory failure with hypoxia J96.01 Ischemic cardiomyopathy I25.5 Time Spent (min) 55 (1) ST elevation (STEMI) myocardial infarction Involved coronary artery: LAD coronary artery Qualified Code(s): I21.02 - ST elevation (STEMI) myocardial infarction involving left anterior descending coronary artery
[2021-05-13] MEDS: EPTIFIBATIDE 75 MG/100 ML VIAL IV SCH ×3 (11:28→20:14)
[2021-05-13] MEDS: propofoL 1,000 MG/100 ML VIAL IV SCH ×4 (11:32→23:24)
[2021-05-13] MEDS: fentaNYL citrate 2,500 MCG/250 ML BAG IV SCH (11:32)
[2021-05-13] MEDS ORDERED: SODIUM BICARB 8.4% INJ 50 MEQ/50 ML SYR IV ONE (12:17)
[2021-05-13] MEDS ORDERED: ROCURONIUM BROMIDE 10 MG/ML 5 ML VIAL IV ONE (12:17)
[2021-05-13] MEDS ORDERED: SODIUM CHLORIDE 0.9% 10ML FLUSH IV ONE (12:17)
[2021-05-13] MEDS ORDERED: ATROPINE SULFATE 0.1 MG/ML 10ML SYR IV ONE (12:17)
[2021-05-13] MEDS ORDERED: ETOMIDATE 2 MG/ML 20 ML VIAL IV ONE (12:17)
[2021-05-13] MEDS ORDERED: AMIODARONE HCL INJ 50 MG/ML 3 ML VIAL IV ONE (12:17)
[2021-05-13 12:39] LABS: iSTAT Arterial Blood Gas HCO3 24 meg/L (19-24); iSTAT Arterial Blood Gas pCO2 46 mmHg (35-46); iSTAT Arterial Blood Gas pH 7.32 (7.35-7.45); iSTAT Arterial Blood Gas pO2 245 mmHg (80-95); iSTAT Carbon Dioxide 25 mmol/L (24-31); iSTAT Sample Type Arterial
[2021-05-13 12:40] LABS: iSTAT Arterial Blood Gas pH 7.28 (7.35-7.45)
[2021-05-13 12:41] LABS: iSTAT Arterial Blood Gas HCO3 26 meg/L (19-24); iSTAT Arterial Blood Gas pCO2 55 mmHg (35-46); iSTAT Arterial Blood Gas pO2 44 mmHg (80-95); iSTAT Carbon Dioxide 28 mmol/L (24-31); iSTAT Sample Type Arterial
[2021-05-13 12:42] LABS: iSTAT Arterial Blood Gas HCO3 26 meg/L (19-24); iSTAT Arterial Blood Gas pCO2 61 mmHg (35-46); iSTAT Arterial Blood Gas pH 7.23 (7.35-7.45); iSTAT Arterial Blood Gas pO2 159 mmHg (80-95); iSTAT Carbon Dioxide 27 mmol/L (24-31)
[2021-05-13] MEDS: ATORVASTATIN 40 MG TAB PO SCH (12:45)
[2021-05-13] MEDS: POTASSIUM CHLORIDE / WTR 20 MEQ/100 ML PLCT IV SCH ×3 (12:46→16:51)
[2021-05-13 12:49] LABS: iSTAT Allen Test Pass; iSTAT Art Bld Gas pCO2 Correct 28 mmHg (35-46); iSTAT Art Bld Gas pH Corrected 7.559 (7.35-7.45); iSTAT Arterial Blood Gas HCO3 25 meg/L (19-24); iSTAT Arterial Blood Gas pCO2 30 mmHg (35-46); iSTAT Arterial Blood Gas pH 7.54 (7.35-7.45); iSTAT Arterial Blood Gas pO2 > 420 mmHg (80-95); iSTAT Arterial Blood Gas pO2 C 443; iSTAT Carbon Dioxide 26 mmol/L (24-31); iSTAT FiO2 80 %; iSTAT Hematocrit 41 % (42-52); iSTAT Hemoglobin 13.9 g/dl (14.0-18.0); iSTAT Potassium 4.4 mmol/L (3.3-5.0); iSTAT Site L Radial; iSTAT Sodium 136 mmol/L (135-144)
[2021-05-13] MEDS: AMIODARONE / D5W 360 MG/200 ML BAG IV SCH ×2 (13:07→23:24)
[2021-05-13] MEDS ORDERED: INFLUENZA VACCINE HIGH DOSE PF 65+ 0.7 ML SYR IM ONE (13:58)
[2021-05-13] MEDS ORDERED: PNEUMOCOCCAL POLYSACCHARIDES 25 MCG/0.5 ML VIAL/SYR IM ONE (13:58)
[2021-05-13] MEDS ORDERED: PHARMACY GLYCEMIC MGMT CONSULT PRN (17:26)
[2021-05-13] MEDS ORDERED: GLUCAGON FOR INJ 1 MG VIAL IM PRN (17:30)
[2021-05-13] MEDS ORDERED: GLUCOSE 40% GEL 15 GM TUBE PO PRN (17:30)
[2021-05-13] MEDS ORDERED: CARBOHYDRATES FOR HYPOGLYCEMIA PO PRN (17:30)
[2021-05-13] MEDS ORDERED: GLUCOSE 10 TABS/TUBE PO PRN (17:30)
[2021-05-13] MEDS ORDERED: DEXTROSE 50% 50 ML SYRINGE IV PRN (17:30)
[2021-05-13] MEDS: ICU ELECTROLYTE REPLACEMENT PROTOCOL SCH (17:57)
[2021-05-13] MEDS ORDERED: LACTATED RINGER'S 1,000 ML IV SCH (18:15)
--- NOTE | 2021-05-13 18:38 | XCELERA ---
[id number]
[2021-05-13] MEDS: TICAGRELOR 90 MG TAB PO SCH (19:49)
[2021-05-13] MEDS: PANTOprazole 40 MG in SYRINGE 0 ML IV SCH (19:49)
--- NOTE | 2021-05-13 19:59 | Cardiology Consultation ---
Date of Consultation May 13, 2021 Assessment & Plan (1) ST elevation (STEMI) myocardial infarction: 2. Cardiogenic shock 3. Ischemic cardiomyopathy EF 20 to 25% 4. Severe nonculprit RCA disease MAPs stable on single pressor. Urine output borderline. Electrically stable Oxygenating well Continue hemodynamic support target MAP >65 Repeat lactate. Will consider dobutamine if rising or reduced urine output. Repeat PA sat in AM Finish 18-hour Integrilin infusion Continue amiodarone drip Continue DAPT with aspirin, ticagrelor Plan for staged PCI of RCA when more stable. ? Monday Appreciate ICU and hospital medicine team. History of Present Illness Attending Physician: Zora Atkinson MD History of Present Illness Mr. James is a 65-year-old man admitted with anterior STEMI, cardiac arrest now post primary PCI to LAD. Healthy, active at baseline follows with Dr. Mac for mild aortic valve sclerosis/stenosis. Developed chest pain this morning while exercising. 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 On arrival in cardiogenic shock on multiple pressors. Mid LAD occlusion treated with 2 overlapping drug- eluting stents. Also found to have severe mid and distal RCA disease. Right heart cath showed borderline cardiac output, mild elevated left and right-sided filling pressures. Initial lactate post procedure 3.6 transferred to ICU on norepinephrine, amiodarone, Integrilin. In ICU responsive, pulling at ETT prior to sedation. MAPs stable on increased norepinephrine from 0.1 to 0.17. Remains intubated, FiO2 down to 40%. Urine output approximately 30 to 40 cc/h, gradually trending down. Electrically stable on telemetry. Troponin up to 29. Repeat lactate 2.4. Echocardiogram showed EF 20 to 25% with large LAD distribution wall motion abnormality. Allergies Allergy/AdvReac Type Severity Reaction Status Date / Time No Known Drug Allergies Allergy Verified 12/30/20 09:51 Home Medications Medication Instructions Recorded Confirmed Type celecoxib 100 mg capsule (Celebrex) 100 mg PO QAM PRN #90 cap 06/01/20 12/30/20 Rx amoxicillin 500 mg tablet 2,000 mg PO ONCE #4 tab 12/08/20 12/30/20 Rx Patient History Medical History Aortic valve sclerosis CAD (coronary artery disease), [place] coronary artery Degenerative arthritis of knee, bilateral Osteoarthritis Surgical History History of dental surgery Two implants placed with sedation History of left knee replacement History of tonsillectomy Hx of colonoscopy Family History Other Family history non-contributory Social History Smoking Status: Never smoker Second Hand Exposure: Yes ( CHILD); Hx Alcohol Use: Yes Alcohol type: hard liquor Hx Substance Use: No Preferred Language: [place] Citizen Communication Ability: Effective Visual Impairment: No Limitations Poultry Offal Icer Required: No Beliefs That Will Affect Care: None Current Living Situation: Significant Other Other Information That Helps Us Care for You: No Feels Safe at Home: Yes Safety Concerns: Feels Safe At This Time Assistive Devices: None and Walker Review of Systems Review of Systems: Unobtainable due to endotracheal tube Physical Exam Physical Exam: General: Intubated sedated HEENT: Sclerae anicteric Lungs: Clear anteriorly Cardiac: Regular rate and rhythm, 2 out of 6 systolic ejection murmur Vascular: 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, no hematoma, distal DP pulses intact Abdomen: Soft, Extremities: Well perfused, no peripheral edema Neuro: Nonfocal Psych: Alert orient x3, normal affect and mood Results & Data ([facility]) Vital Signs (Past 12 Hours) Vital Signs Temp Pulse Resp BP Pulse Ox Pulse Ox 05/13/21 19:00 99.1 F 62 18 82/65 L 99 05/13/21 18:20 99.0 F 64 18 99 05/13/21 18:10 99.0 F 65 18 88/66 L 100 05/13/21 18:00 99.0 F 66 22 87/66 L 99 05/13/21 17:50 98.8 F 66 22 90/67 L 100 05/13/21 17:40 98.8 F 65 22 88/68 L 100 05/13/21 17:30 98.6 F 64 22 90/68 L 99 05/13/21 17:20 98.6 F 66 22 88/66 L 100 05/13/21 17:10 98.6 F 67 22 90/68 L 100 05/13/21 17:00 98.6 F 67 22 93/68 L 100 05/13/21 16:50 98.4 F 69 22 87/68 L 99 05/13/21 16:40 98.4 F 68 22 86/69 L 100 05/13/21 16:30 98.2 F 69 22 89/69 L 99 05/13/21 16:20 98.2 F 67 22 86/67 L 100 05/13/21 16:10 98.1 F 67 22 86/68 L 100 05/13/21 16:09 68 22 100 05/13/21 16:00 98.1 F 67 22 88/68 L 100 05/13/21 15:50 97.9 F 66 22 85/67 L 100 05/13/21 15:40 97.9 F 66 22 87/67 L 100 05/13/21 15:30 97.7 F 66 22 85/67 L 100 05/13/21 15:20 97.7 F 68 26 H 87/69 L 100 05/13/21 15:10 97.5 F L 67 26 H 88/68 L 100 05/13/21 15:00 97.5 F L 66 26 H 88/68 L 100 05/13/21 14:50 97.5 F L 66 26 H 88/69 L 100 05/13/21 14:40 97.3 F L 64 26 H 87/68 L 100 05/13/21 14:30 97.3 F L 65 26 H 87/70 L 100 05/13/21 14:20 97.2 F L 64 26 H 88/73 L 100 05/13/21 14:10 97.2 F L 64 26 H 82/67 L 100 05/13/21 14:00 97.2 F L 65 26 H 82/67 L 100 05/13/21 13:50 97.0 F L 62 26 H 83/65 L 100 05/13/21 13:40 97.0 F L 64 26 H 84/67 L 100 05/13/21 13:30 97.0 F L 62 26 H 83/66 L 100 05/13/21 13:20 96.8 F L 63 26 H 85/68 L 100 05/13/21 13:10 96.8 F L 61 26 H 86/69 L 100 05/13/21 13:00 96.8 F L 63 26 H 90/74 L 100 05/13/21 12:50 96.6 F L 62 26 H 84/66 L 100 05/13/21 12:40 96.4 F L 60 26 H 83/67 L 100 05/13/21 12:35 26 H 05/13/21 12:30 96.4 F L 62 30 H 86/67 L 100 05/13/21 12:20 96.4 F L 61 30 H 87/70 L 100 05/13/21 12:10 96.4 F L 62 30 H 85/70 L 100 05/13/21 12:00 96.3 F L 63 30 H 83/67 L 100 05/13/21 11:50 96.3 F L 64 30 H 83/69 L 100 05/13/21 11:40 96.1 F L 65 30 H 80/66 L 100 05/13/21 11:30 95.9 F L 65 30 H 91/70 L 100 05/13/21 11:20 95.7 F L 67 30 H 89/65 L 100 05/13/21 11:10 95.5 F L 72 30 H 99/79 L 100 05/13/21 11:00 95.0 F L 75 30 H 96/79 L 100 05/13/21 10:51 94.5 F L 85 30 H 103/84 100 05/13/21 10:50 94.6 F L 76 30 H 100 05/13/21 10:40 95.0 F L 72 30 H 84/65 L 100 05/13/21 10:31 94.1 F L 74 30 H 85/70 L 100 05/13/21 10:30 94.1 F L 71 30 H 05/13/21 10:20 94.3 F L 75 26 H 05/13/21 10:10 93.7 F L 84 30 H 125/101 H 05/13/21 10:04 87 30 H 97 05/13/21 10:01 89 30 H 136/90 99 05/13/21 10:00 96.8 F L 86 26 H 95 05/13/21 09:47 95 05/13/21 09:10 86 26 H 98 05/13/21 08:50 22 05/13/21 08:30 18 05/13/21 07:47 98.2 F 78 18 95 PG Care Time/CCT Total # of Minutes Spent Total Time Spent with Patient: Total time spent is greater than 50% in coordination of care (as documented) at patient's floor/unit and/or counseling patient: Coding Level of Care Code 84545 Inpt Consult Level [address] elevation (STEMI) myocardial infarction I21.02 Involved coronary artery: LAD coronary artery (1) ST elevation (STEMI) myocardial infarction Involved coronary artery: LAD coronary artery Qualified Code(s): I21.02 - ST elevation (STEMI) myocardial infarction involving left anterior descending coronary artery
[2021-05-13] MEDS: INSULIN ASPART PER UNIT SC SCH (20:14)
[2021-05-13] MEDS ORDERED: ACETAMINOPHEN 1,000 MG/100 ML VIAL IV PRN (21:19)
[2021-05-13 21:30] LABS: BUN Creatinine Ratio 12.9 (10-20); Calcium 7.5 mg/dl (8.5-10.1); Creatinine Clr Calc Pharmacy 59.3 ml/min; Est GFR (African American) 65.2 ml/min; Est GFR (Non-African American) 56.2 ml/min; Potassium 4.5 mmol/L (3.5-5.1)
--- NOTE | 2021-05-13 22:23 | Electrocardiogram Report ---
Test Reason : Blood Pressure : / mmHG Vent. Rate : 059 BPM Atrial Rate : 059 BPM P-R Int : 178 ms QRS Dur : 096 ms QT Int : 356 ms P-R-T Axes : 052 006 035 degrees QTc Int : 352 ms Sinus bradycardia with Premature atrial complexes Nonspecific T wave abnormality ST elevation, consider anterior injury Abnormal ECG When compared with ECG of 26-APR-2019 08:34, Premature atrial complexes are now Present Questionable change in QRS axis ST elevation is now present anterior leads Confirmed by Yunior Matt ([id number]) on 05/13/2021 10:22:40 PM Referred By: REFERRED SELF Confirmed By:Yunior Matt
[2021-05-14] MEDS: INSULIN ASPART PER UNIT SC SCH ×5 (00:03→17:19)
[2021-05-14] MEDS: propofoL 1,000 MG/100 ML VIAL IV SCH (03:55)
[2021-05-14 04:57] LABS: Basophils # (auto) 0.01 K/uL (0-0.2); Basophils % (auto) 0.1 %; Eosinophils # (auto) 0.07 K/uL (0-0.5); Eosinophils % (auto) 0.7 %; Hematocrit (blood only) 42.5 % (42-52); Hemoglobin 14.7 g/dL (14.0-18.0); Immature Granulocytes # (auto) 0.01 K/uL (0.00-0.02); Immature Granulocytes % (auto) 0.1 %; Lymphocytes # (auto) 0.97 K/uL (1.2-3.4); Mean Corpuscular Hemoglobin 32.6 pg (25-34); Mean Corpuscular Hgb Conc 34.6 g/dL (32-36); Mean Corpuscular Volume 94.2 fL (80-100); Mean Platelet Volume 9.4 fL (7.4-10.4); Monocytes # (auto) 1.25 K/uL (0.11-0.59); Monocytes % (auto) 12.9 %; Neutrophils # (auto) 7.37 K/uL (1.4-6.5); Neutrophils % (auto) 76.2 %; Platelet Count 260 K/uL (130-400); RDW Coefficient of Variation 13.7 % (11.5-14.5); Red Blood Count 4.51 M/uL (4.7-6.1); White Blood Count 9.68 K/uL (4.8-10.8)
[2021-05-14 05:19] LABS: Blood Urea Nitrogen 14 mg/dl (7-18); Carbon Dioxide 26 mmol/L (21-32); Chloride 104 mmol/L (98-107); Creatinine Clr Calc Pharmacy 57.1 ml/min; Est GFR (African American) 62.3 ml/min; Est GFR (Non-African American) 53.7 ml/min; Glucose 150 mg/dl (70-99); Magnesium 1.7 mg/dl (1.8-2.4); Potassium 4.3 mmol/L (3.5-5.1); Sodium 135 mmol/L (136-145)
[2021-05-14] MEDS: NOREPINEPHRINE/D5W 8 MG/508 ML BAG IV SCH ×2 (05:31→11:49)
[2021-05-14 05:47] LABS: Chol HDL Ratio 3; Cholesterol 160 mg/dl (0-200); HDL Cholesterol 64 mg/dl; LDL Cholesterol Direct 81 mg/dl; Phosphorus 3.2 mg/dl (2.5-4.9); Triglycerides 121 mg/dl (0-150); VLDL Cholesterol 24 mg/dl
[2021-05-14 05:49] LABS: iSTAT Allen Test Pass; iSTAT Arterial Blood Gas HCO3 25 meg/L (19-24); iSTAT Arterial Blood Gas pCO2 42 mmHg (35-46); iSTAT Arterial Blood Gas pH 7.39 (7.35-7.45); iSTAT Arterial Blood Gas pO2 109 mmHg (80-95); iSTAT Carbon Dioxide 26 mmol/L (24-31); iSTAT FiO2 35 %; iSTAT Site L Radial
[2021-05-14] MEDS: MAGNESIUM SULFATE / D5W 1 GM/100 ML BAG IV SCH ×4 (06:17→12:36)
[2021-05-14] MEDS: ICU ELECTROLYTE REPLACEMENT PROTOCOL SCH ×2 (06:17→17:18)
--- NOTE | 2021-05-14 06:17 | Electrocardiogram Report ---
Test Reason : Blood Pressure : / mmHG Vent. Rate : 144 BPM Atrial Rate : 093 BPM P-R Int : 000 ms QRS Dur : 140 ms QT Int : 354 ms P-R-T Axes : 000 -69 072 degrees QTc Int : 548 ms Poor data quality, interpretation may be adversely affected Wide QRS tachycardia Fusion complexes Right bundle branch block Left anterior fascicular block Bifascicular block Septal infarct , age undetermined Abnormal ECG When compared with ECG of 13-MAY-2021 07:50, Sinus rhythm is no longer Present (RBBB and left anterior fascicular block) is now Present Septal infarct is now Present Confirmed by Yunior Matt ([id number]) on 05/14/2021 6:17:31 AM Referred By: REFERRED SELF Confirmed By:Yunior Matt
--- NOTE | 2021-05-14 06:42 | Electrocardiogram Report ---
Test Reason : Blood Pressure : / mmHG Vent. Rate : 062 BPM Atrial Rate : 062 BPM P-R Int : 166 ms QRS Dur : 088 ms QT Int : 426 ms P-R-T Axes : 067 081 -72 degrees QTc Int : 432 ms Normal sinus rhythm Low voltage QRS Possible Anterior infarct (cited on or before 13-MAY-2021) T wave abnormality, consider inferolateral ischemia Abnormal ECG When compared with ECG of 13-MAY-2021 08:10, (RBBB and left anterior fascicular block) is no longer Present T wave inversion now evident in Inferolateral leads Confirmed by Yunior Matt ([id number] on 05/14/2021 6:41:30 AM Referred By: REFERRED SELF Confirmed By:Yunior Matt
--- NOTE | 2021-05-14 07:20 | XRay Report ---
XR chest 1V portable HISTORY: 65 years-old Male f/u acute respiratory failure COMPARISON: Chest radiograph 05/13/2021 TECHNIQUE: Portable AP view of the chest FINDINGS: Cardiac silhouette is mildly enlarged. Endotracheal tube overlies the midline, 4.7 cm superior to the carlos. Enteric tube distal tip projects over the gastric fundus. No pneumothorax or large pleural e ffusion. Pulmonary vascular congestion with decreased interstitial coarsening. Ill-defined mild bibas ilar densities. Blunting of the costophrenic angles suggests trace pleural effusions. No pneumothorax . Degenerative changes of the shoulders and spine. IMPRESSION: 1. Satisfactory positioning of the endotracheal and enteric tubes. 2. Cardiomegaly with decreased pulmonary vascular congestion. 3. Mild bibasilar opacities suggest atelectasis versus pneumonitis. ACT 112: Negative or not required by law. The above report was generated using voice recognition software. It may contain grammatical, syntax o r spelling errors. Electronically signed by: Donavan Daugherty M.D. 05/14/2021 7:19 AM
[2021-05-14] MEDS: ATORVASTATIN 40 MG TAB PO SCH (07:26)
[2021-05-14] MEDS: ASPIRIN 81 MG ECTAB PO SCH (07:27)
[2021-05-14] MEDS: fentaNYL citrate 2,500 MCG/250 ML BAG IV SCH (07:27)
[2021-05-14] MEDS: TICAGRELOR 90 MG TAB PO SCH ×2 (07:27→20:33)
[2021-05-14 07:48] LABS: Estimated Average Glucose 100 mg/dl; Hemoglobin A1C 5.1 % (4.5-5.6)
--- NOTE | 2021-05-14 09:42 | Critical Care Progress Note ---
Date of Service May 14, 2021 Assessment & Plan (1) ST elevation (STEMI) myocardial infarction: (2) Cardiogenic shock: (3) Acute respiratory failure with hypoxia: (4) Ischemic cardiomyopathy: Plan: -- VDRF Likely secondary to cardiac arrest Continue with ventilatory support Keep RASS -1 Avoid temperature greater than 37.5 --STEMI with cardiac arrest S/p 2 stents in LAD Continue with dual antiplatelet therapy 2D echo 05/14/2021: EF 20-25% Cardiology on board --Hypotension Likely cardiogenic in nature Continue with Levophed to keep MAP greater than 65 Try to wean it off --Prophylaxis VTE: Heparin GI: Protonix Lines: Right femoral [place] Diet: N.p.o. Plan: In/out: +3366, urine output 1119 Patient is awake and following commands Trial of SBT extubation. 2D echo today shows EF of only 20%. Patient was on low-dose Levophed at the time of examination this is most likely from propofol We will try to wean it off. Based on patient's blood pressure will decide if he will be able to tolerate low-dose beta-blockers Hypomagnesemia being replaced I have personally spent 35 minutes of critical care time in the direct management of this patient. This is a life/limb threatening event. This includes time spent evaluating patient, direct bedside care, chart review, placing orders, interpretation of diagnostic studies, discussion with consultants, patient, and family members, as well as other required patient management activities. This time is exclusive of all separately billable procedures, and teaching time and separate from and in addition to any other critical care service time. Please note the above document was generated using voice recognition software. It may contain grammatical, syntax or spelling errors. Admission and Anticipated Discharge Date Admission Date: May 13, 2021 Subjective Patient seen and examined at bedside. No acute distress, no evidence overnight Patient was on 30% FiO2 the time of examination with PEEP of five He was denying any headache, no chest pain. Was following simple commands. Has been afebrile. On low-dose Levophed at time of examination Review of Systems Review of Systems: All systems reviewed & are unremarkable except as noted in Subjective Physical Exam Physical Exam: Constitutional: No acute distress HEENT: PERRLA, positive ETT Respiratory system: Good air entry bilaterally, no wheeze, rhonchi, mild crackles bilaterally CVS: S1-S2 positive, no murmurs or gallops Abdomen: Soft, nontender, nondistended, positive bowel sounds x4 Extremities: +2 pulses bilaterally radialis/ dorsalis pedis, no cyanosis, no edema Neuro: Sedated, following commands Psych: Unable to assess G/U: Positive Salcedo Skin: no rashes, warm and dry Lymphatic: no cervical or axillary lymphadenopathy Results & Data Results & Data ([facility]) Vital Signs (Past 12 Hours) Vital Signs Temp Pulse Resp BP Pulse Ox 05/14/21 08:00 55 L 05/14/21 06:00 37.5 C 55 L 18 104/68 98 05/14/21 05:00 37.6 C H 55 L 18 104/70 98 05/14/21 04:29 57 L 19 99 05/14/21 04:00 37.5 C 55 L 18 106/73 98 05/14/21 03:10 37.5 C 57 L 18 103/73 99 05/14/21 03:00 37.6 C H 57 L 18 103/73 99 05/14/21 02:10 37.6 C H 60 18 103/71 99 05/14/21 02:00 37.6 C H 59 L 18 102/72 99 05/14/21 01:00 37.6 C H 60 18 98/72 L 98 05/14/21 00:10 37.8 C H 61 18 102/72 99 05/14/21 00:00 37.8 C H 63 18 99 05/13/21 23:20 92/61 L 05/13/21 23:10 37.9 C H 61 18 96/63 L 98 05/13/21 23:00 37.9 C H 61 18 90/64 L 98 05/13/21 22:49 61 18 98 05/13/21 22:00 37.8 C H 62 18 89/63 L 98 05/13/21 21:50 37.8 C H 61 18 94/67 L 98 05/14/21 04:18 05/14/21 04:18 Coding Level of Care Code Critical Care 1st 30-[address] elevation (STEMI) myocardial infarction I21.02 Involved coronary artery: LAD coronary artery Cardiogenic shock R57.0 Acute respiratory failure with hypoxia J96.01 Ischemic cardiomyopathy I25.5 Time Spent (min) 35 (1) ST elevation (STEMI) myocardial infarction Involved coronary artery: LAD coronary artery Qualified Code(s): I21.02 - ST elevation (STEMI) myocardial infarction involving left anterior descending coronary artery
[2021-05-14] MEDS ORDERED: HEPARIN SOD 5,000 UNIT/0.5 ML VIAL SQ ONE (10:30)
[2021-05-14] MEDS: ONDANSETRON INJ 2 MG/ML 2 ML VIAL IV PRN (10:50)
[2021-05-14] MEDS: AMIODARONE / D5W 360 MG/200 ML BAG IV SCH ×2 (11:48→22:57)
[2021-05-14] MEDS: PANTOprazole 40 MG in SYRINGE 0 ML IV SCH (11:50)
--- NOTE | 2021-05-14 12:08 | Cardiology Progress Note ---
Date of Service May 14, 2021 Assessment & Plan (1) ST elevation (STEMI) myocardial infarction: Plan: -s/p 2 overlapping TAMELA in the mid LAD. -troponin peaked at 32.2, currently 26.5. -ventricular dysrhythmias controlled on intravenous amiodarone. -would initiate beta-blockade prior to discontinuation of amiodarone. -severe left ventricular dysfunction on echocardiogram. -off all intravenous pressors. -consider repeat echocardiogram prior to discharge to determine if a life vest is necessary. -continue aspirin and ticagrelor. -continue high-dose atorvastatin. (2) CAD (coronary artery disease), [place] coronary artery: Plan: -staged PCI of mid and distal RCA lesions planned for next week. -other disease included 30% ostial LAD, 50% ostial D1. -medical management as noted above. (3) Ischemic cardiomyopathy: Plan: -LVEF of 20-25% with a large anterior wall motion abnormality. -as above, consider repeat echocardiogram prior to discharge. -consider ACEI or ARB when blood pressure allows. Admission and Anticipated Discharge Date Admission Date: May 13, 2021 Subjective The patient is resting comfortably in bed without complaints of chest pain or dyspnea. Is anxious to have the BiPAP mask removed. Wants to eat lunch. Physical Exam Physical Exam: In general this is a well-developed well-nourished white male in no acute distress. HEENT exam is negative. Neck is supple with full carotid upstrokes. There are no carotid bruits. No JVD. There is no thyromegaly. Cardiovascular exam reveals a regular rhythm with a normal S1 and S2. No obvious murmurs. No S3. Abdomen is soft and nontender without bruits. Extremities reveal intact radial artery and posterior tibial pulses bilaterally. There is no peripheral edema. Results & Data ([facility]) Vital Signs (Past 12 Hours) Vital Signs Temp Pulse Resp BP Pulse Ox 05/14/21 08:00 55 L 05/14/21 06:00 37.5 C 55 L 18 104/68 98 05/14/21 05:00 37.6 C H 55 L 18 104/70 98 05/14/21 04:29 57 L 19 99 05/14/21 04:00 37.5 C 55 L 18 106/73 98 05/14/21 03:10 37.5 C 57 L 18 103/73 99 05/14/21 03:00 37.6 C H 57 L 18 103/73 99 05/14/21 02:10 37.6 C H 60 18 103/71 99 05/14/21 02:00 37.6 C H 59 L 18 102/72 99 05/14/21 01:00 37.6 C H 60 18 98/72 L 98 05/14/21 00:10 37.8 C H 61 18 102/72 99 Laboratory Results Troponin I level peaked at 32.2, currently down to 26.5. 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 PG Care Time/CCT Total # of Minutes Spent Total Time Spent with Patient: Total time spent is greater than 50% in coordination of care (as documented) at patient's floor/unit and/or counseling patient: Coding Level of Care Code 15960 Subseq Hosp Care Lvl [address] elevation (STEMI) myocardial infarction I21.02 Involved coronary artery: LAD coronary artery CAD (coronary artery disease), [place] coronary artery I25.110 Associated angina: with unstable angina [place] vs. transplanted heart: [place] heart Ischemic cardiomyopathy I25.5 (1) CAD (coronary artery disease), [place] coronary artery Associated angina: with unstable angina [place] vs. transplanted heart: [place] heart Qualified Code(s): I25.110 - Atherosclerotic heart disease of [place] coronary artery with unstable angina pectoris (2) ST elevation (STEMI) myocardial infarction Involved coronary artery: LAD coronary artery Qualified Code(s): I21.02 - ST elevation (STEMI) myocardial infarction involving left anterior descending coronary artery
--- NOTE | 2021-05-14 12:15 | Pharmacy Report ---
Pharmacy Glycemic Short Note 2 - Date of Service May 14, 2021 - Glycemic Short BSG Results (Last 24 hours): 05/13/21 05/13/21 05/13/21 15:47 19:56 20:08 Glucose POC Glucose POC Glucose (other) 163 H 354 H* 132 H 05/13/21 05/13/21 05/14/21 20:58 23:34 04:18 Glucose 127 H 150 H POC Glucose POC Glucose (other) 137 H 05/14/21 05/14/21 05/14/21 04:53 07:22 11:46 Glucose POC Glucose 116 H 124 H POC Glucose (other) 154 H OUTPATIENT ANTIDIABETIC REGIMEN: * N/A * A1c = 5.1% ASSESSMENT: * Patient presented to ED yesterday AM with chest pain. STEMI dx on arrival. Pt was code blue in ED, however ROSC quickly obtained and patient taken to CCL. He is now s/p 2 stents to LAD and will likely go back to CCL for RCA stenting when more stable. * BSGs did climb > 180 yesterday, likely due to acute stressors (STEMI, pressors, cath procedure, intubation, etc). Sliding scale Novolog was initiated and thus far has controlled minor BSG elevations. Will continue with correctional insulin alone at this time. At some point BSG checks and Novolog coverage may be discontinued as acute stressors lessen. PLAN FOR INPATIENT GLYCEMIC CONTROL: * Basal insulin * none * Bolus insulin * NovoLog per scale ACHS or Q6hrs while NPO * Goal Range: Low 110 mg/dL - High 140 mg/dL * Correction Factor: 20 mg/dL/unit * Nutritional / Prandial insulin : none
[2021-05-14] MEDS ORDERED: PROMETHAZINE HCL 12.5 MG in SODIUM CHLORIDE 0.9% 50 ML IV STA (12:43)
--- NOTE | 2021-05-14 17:02 | Hospitalist Progress Note ---
Date of Service May 14, 2021 Assessment & Plan (1) Cardiac arrest: Plan: Vfib arrest secondary to STEMI, acute LAD occlusion Achieved ROSC after CPR,epi x 2, amiodarone bolus, 2 defib shocks Taken to [employer], 2 stents in LAD, anticipate stenting of residual RCA disease later this hospital stay -Doing surprisingly well (2) Cardiogenic shock: Plan: /Acute systolic failuremuch more stable now, breathing appears to be improving, weaning back on respiratory support, no overt need to affect ongoing diuresis. Follow-up EF later this hospital stay (3) Acute respiratory failure with hypoxia: Plan: secondary to cardiac arrest and cardiogenic shock Improving (4) CAD (coronary artery disease), [place] coronary artery: Plan: Old lipids referenced in cardiology note were at goal for risk, does sound like exercises regularlybut I will need to dive into specifically what he does/eating habits for secondary risk reduction, given that his lipids are good, his A1c is good, does not appear to be hypertensive, is not a smoker, etc. (5) Hypokalemia: Plan: Replaced (6) Hematoma: Plan: right thigh from procedure (7) Aortic valve sclerosis: Plan: mild, followed with ECHO as outpt with Dr. Mac (8) Degenerative arthritis of knee, bilateral: Plan: holding home Celebrex Plan: DVT prophylaxisheparin subcu Continue current care otherwise. Admission and Anticipated Discharge Date Admission Date: May 13, 2021 Subjective Biggest complaint is feeling hungry. No notable chest pain. Asks what happenedseems to have not really had recollection of the events around his admission, updated to the best my ability. Discussed with cardiology, input appreciated. Otherwise no acute symptoms. Review of Systems Review of Systems: All systems reviewed & are unremarkable except as noted in HPI & below Physical Exam Physical Exam: In general awake and alert, seems to be oriented although just has bad recollection for recent events. HEENT normocephalic atraumatic mucous membranes are moist. On BiPAP. Breathing unlabored no accessory muscle use good effort. Cardio is regular distant no rubs murmurs or gallops, lungs seem to be clear to auscultation bilaterally no rales rhonchi or wheezes. Abdomen is soft. Neuro without focal deficits. Results & Data Results & Data ([facility]) Vital Signs (Past 12 Hours) Vital Signs Temp Pulse Resp BP Pulse Ox 05/14/21 16:30 99.3 F 72 18 98 05/14/21 16:00 99.0 F 66 22 119/77 97 05/14/21 15:30 99.0 F 63 22 114/74 97 05/14/21 15:00 98.8 F 66 23 136/84 95 05/14/21 14:30 98.6 F 68 22 116/79 97 05/14/21 14:00 98.6 F 64 17 113/80 94 05/14/21 13:30 98.6 F 73 20 117/72 95 05/14/21 13:00 98.8 F 56 L 128/75 99 05/14/21 12:32 98.8 F 57 L 117/78 97 05/14/21 12:30 98.8 F 59 L 109/69 98 05/14/21 12:20 98.8 F 69 99 05/14/21 12:15 98.8 F 62 113/75 98 05/14/21 12:10 99.0 F 66 99 05/14/21 12:00 99.0 F 73 16 127/80 96 05/14/21 11:50 99.1 F 56 L 98 05/14/21 11:45 99.1 F 55 L 123/78 99 05/14/21 11:40 99.1 F 57 L 96 05/14/21 11:30 99.1 F 61 19 110/74 98 05/14/21 11:20 99.3 F 64 19 97 05/14/21 11:15 99.3 F 66 14 116/81 98 05/14/21 11:10 99.3 F 66 19 97 05/14/21 11:00 99.3 F 70 107/73 98 05/14/21 10:50 99.3 F 81 15 96 05/14/21 10:40 99.5 F 75 22 95 05/14/21 10:30 99.5 F 83 20 134/88 95 05/14/21 10:20 99.7 F H 69 20 97 05/14/21 10:15 99.7 F H 75 22 128/85 97 05/14/21 10:10 99.7 F H 67 20 98 05/14/21 10:00 99.7 F H 66 20 119/80 96 05/14/21 09:50 99.7 F H 67 20 96 01/07/22 09:45 99.7 F H 70 23 115/79 96 05/14/21 09:40 99.5 F 65 15 97 05/14/21 09:30 99.9 F H 63 15 120/78 96 05/14/21 09:20 99.9 F H 69 21 97 05/14/21 09:15 99.9 F H 56 L 14 124/80 98 05/14/21 09:10 99.7 F H 67 21 120/80 97 05/14/21 09:00 99.7 F H 59 L 18 114/78 97 05/14/21 08:50 99.7 F H 60 120/78 98 05/14/21 08:40 99.5 F 69 21 126/90 99 05/14/21 08:30 99.5 F 62 26 H 114/78 98 05/14/21 08:23 56 L 16 99 05/14/21 08:20 99.5 F 60 20 100 05/14/21 08:00 55 L 05/14/21 06:00 99.5 F 55 L 18 104/68 98 05/14/21 05:00 99.7 F H 55 L 18 104/70 98 PG Care Time/CCT Total # of Minutes Spent Total Time Spent with Patient: Total time spent is greater than 50% in coordination of care (as documented) at patient's floor/unit and/or counseling patient: Coding Level of Care Code 48117 Subseq Hosp Care Lvl 2 Diagnoses Cardiac arrest I46.9 Cardiogenic shock R57.0 Acute respiratory failure with hypoxia J96.01 CAD (coronary artery disease), [place] coronary artery I25.110 Associated angina: with unstable angina [place] vs. transplanted heart: [place] heart Hypokalemia E87.6 Hematoma T14.8XXA Aortic valve sclerosis I35.8 Degenerative arthritis of knee, bilateral M17.0 (1) CAD (coronary artery disease), [place] coronary artery Associated angina: with unstable angina [place] vs. transplanted heart: [place] heart Qualified Code(s): I25.110 - Atherosclerotic heart disease of [place] coronary artery with unstable angina pectoris
[2021-05-14] MEDS: HEPARIN SOD 5,000 UNIT/0.5 ML VIAL SQ SCH (20:33)
[2021-05-15] MEDS: INSULIN ASPART PER UNIT SC SCH ×4 (01:47→19:18)
[2021-05-15] MEDS: ONDANSETRON INJ 2 MG/ML 2 ML VIAL IV PRN ×2 (05:48→12:32)
[2021-05-15 06:22] LABS: BUN Creatinine Ratio 12.2 (10-20); Calcium 7.9 mg/dl (8.5-10.1); Creatinine Clr Calc Pharmacy 75.9 ml/min; Est GFR (African American) 86.9 ml/min; Magnesium 2.2 mg/dl (1.8-2.4); Potassium 3.8 mmol/L (3.5-5.1)
[2021-05-15] MEDS: ICU ELECTROLYTE REPLACEMENT PROTOCOL SCH ×2 (06:35→19:19)
[2021-05-15] MEDS: HEPARIN SOD 5,000 UNIT/0.5 ML VIAL SQ SCH ×2 (07:57→20:51)
[2021-05-15] MEDS: TICAGRELOR 90 MG TAB PO SCH ×2 (07:57→20:51)
[2021-05-15] MEDS: ASPIRIN 81 MG ECTAB PO SCH (07:57)
[2021-05-15] MEDS: NOREPINEPHRINE/D5W 8 MG/508 ML BAG IV SCH (07:58)
[2021-05-15] MEDS: ATORVASTATIN 40 MG TAB PO SCH (07:58)
[2021-05-15 08:36] LABS: Basophils # (auto) 0.01 K/uL (0-0.2); Basophils % (auto) 0.1 %; Eosinophils # (auto) 0.08 K/uL (0-0.5); Eosinophils % (auto) 1.2 %; Hematocrit (blood only) 38.1 % (42-52); Hemoglobin 13.2 g/dL (14.0-18.0); Immature Granulocytes # (auto) 0.02 K/uL (0.00-0.02); Immature Granulocytes % (auto) 0.3 %; Lymphocytes % (auto) 7.3 %; Mean Corpuscular Hemoglobin 32.4 pg (25-34); Mean Corpuscular Hgb Conc 34.6 g/dL (32-36); Mean Corpuscular Volume 93.4 fL (80-100); Mean Platelet Volume 9.5 fL (7.4-10.4); Monocytes # (auto) 0.68 K/uL (0.11-0.59); Monocytes % (auto) 9.9 %; Neutrophils # (auto) 5.56 K/uL (1.4-6.5); Neutrophils % (auto) 81.2 %; Platelet Count 122 K/uL (130-400); RDW Coefficient of Variation 13.5 % (11.5-14.5); RDW Standard Deviation 46.2 fL (36.4-46.3); Red Blood Count 4.08 M/uL (4.7-6.1); White Blood Count 6.85 K/uL (4.8-10.8)
--- NOTE | 2021-05-15 08:38 | Critical Care Progress Note ---
Date of Service May 15, 2021 Assessment & Plan (1) ST elevation (STEMI) myocardial infarction: (2) Cardiogenic shock: (3) Acute respiratory failure with hypoxia: (4) Ischemic cardiomyopathy: Plan: -- S/p VDRF Likely secondary to cardiac arrest S/p extubation 05/14/2021 --STEMI with cardiac arrest S/p 2 stents in LAD Continue with dual antiplatelet therapy 2D echo 05/14/2021: EF 20-25% Cardiology on board --S/p hypotension Likely cardiogenic in nature Off vasopressors since 05/14/2021 --Prophylaxis VTE: Heparin GI: Protonix Lines: Peripherals Diet: Cardiac Plan: In/out: +308, urine output 1405 Patient clinically doing much better. I added metoprolol 12.5 mg twice daily. If the patient's blood pressure and heart rate is able to be sustained with it can DC the amiodarone drip later today. Case was discussed with hospitalist and RN Please note the above document was generated using voice recognition software. It may contain grammatical, syntax or spelling errors. Admission and Anticipated Discharge Date Admission Date: May 13, 2021 Subjective Patient seen and examined at bedside. No acute distress, no adverse events overnight. Patient just had breakfast prior to me seeing the patient. Denies any nausea or vomiting today. No headache, no dizziness No chest pain. No shortness of breath Overall feeling better Review of Systems Review of Systems: All systems reviewed & are unremarkable except as noted in Subjective Physical Exam Physical Exam: Constitutional: No acute distress HEENT: PERRLA, EOMI Respiratory system: Good air entry bilaterally, no wheeze, rhonchi, mild crackles bilaterally CVS: S1-S2 positive, no murmurs or gallops Abdomen: Soft, nontender, nondistended, positive bowel sounds x4 Extremities: +2 pulses bilaterally radialis/ dorsalis pedis, no cyanosis, no edema Neuro: Awake alert oriented x3 Psych: Normal mood and affect G/U: No [place] Skin: no rashes, warm and dry Lymphatic: no cervical or axillary lymphadenopathy Results & Data Results & Data ([facility]) Vital Signs (Past 12 Hours) Vital Signs Temp Pulse Resp BP Pulse Ox 05/15/21 07:40 69 25 H 92 05/15/21 07:32 36.7 C 73 27 H 115/82 93 05/15/21 07:20 68 26 H 91 05/15/21 07:00 69 26 H 110/73 90 05/15/21 06:06 64 24 109/73 93 05/15/21 05:00 75 22 113/66 88 L 05/15/21 04:00 36.8 C 75 21 111/67 93 05/15/21 03:01 75 24 89/74 L 89 L 05/15/21 02:00 70 27 H 99/60 L 89 L 05/15/21 01:00 67 24 113/78 93 05/15/21 00:00 36.7 C 71 24 107/75 95 05/14/21 23:00 79 19 125/94 93 05/14/21 22:00 78 27 H 114/75 96 05/14/21 21:00 37.5 C 78 25 H 112/75 95 Laboratory Results 05/15/21 05:30 05/15/21 05:30 Coding Level of Care Code 62911 Subseq Hosp Care Lvl [address] elevation (STEMI) myocardial infarction I21.02 Involved coronary artery: LAD coronary artery Cardiogenic shock R57.0 Acute respiratory failure with hypoxia J96.01 Ischemic cardiomyopathy I25.5 (1) ST elevation (STEMI) myocardial infarction Involved coronary artery: LAD coronary artery Qualified Code(s): I21.02 - ST elevation (STEMI) myocardial infarction involving left anterior descending coronary artery
[2021-05-15] MEDS: METOPROLOL TARTRATE 25 MG TAB PO SCH ×2 (10:54→20:50)
[2021-05-15] MEDS: PANTOprazole 40 MG in SYRINGE 0 ML IV SCH (10:55)
[2021-05-15] MEDS: AMIODARONE / D5W 360 MG/200 ML BAG IV SCH (11:13)
--- NOTE | 2021-05-15 12:01 | Cardiology Progress Note ---
Date of Service May 15, 2021 Assessment & Plan (1) ST elevation (STEMI) myocardial infarction: (2) Ischemic cardiomyopathy: (3) Cardiogenic shock: (4) CAD (coronary artery disease), [place] coronary artery: (5) Cardiac arrest: (6) S/P coronary artery stent placement: (7) Ventricular fibrillation: Plan: ASSESSMENT/PLAN: 1. LAD STEMI s/p LAD PCI x 2: No further angina. Continue aspirin 81 mg daily indefinitely. Continue ticagrelor for least 1 year. Cardiac rehab on discharge. Low-dose beta-angela initiated today. Recommend MERT-inhibitor if blood pressure can tolerate after beta-angela therapy initiated. Continue high-intensity statin therapy. 2. Cardiogenic shock: No longer requiring pressor support. Beta-angela initiated today. 3. Ischemic cardiomyopathy: Severely reduced LV systolic function. Given that peak troponin was 32.2, would expect that severely reduced LV systolic function involved stunning of the myocardium. Would repeat echocardiogram prior to discharge and if EF remains less than 35%, would recommend Life Vest. Transition metoprolol tartrate to metoprolol succinate prior to discharge. Initiate MERT-inhibitor, hopefully soon. If EF remains severely reduced and patient tolerating beta-angela and MERT-inhibitor, would recommend spironolactone prior to discharge. He appears euvolemic. 4. Cardiac arrest/ventricular fibrillation: Occurred while acutely ischemic in the setting of STEMI. No further ventricular arrhythmia. Can discontinue amiodarone drip later today now that beta-angela has been initiated. Discussion of life vest as above if EF does not significantly improve. 5. CAD: Continue medical therapy as outlined above. Planned PCI of RCA during this hospitalization as per interventional Cardiology. 6. Disposition: Cardiology will continue to follow. Please call with questions or concerns. Plan of care discussed with nursing staff. Admission and Anticipated Discharge Date Admission Date: May 13, 2021 Subjective Patient was seen out of bed in a chair today eating lunch. He denies angina. He reports that angina was a tight feeling in his throat/base of neck. He has not had any angina since PCI. He denies shortness of breath, syncope, near- syncope, palpitations, edema, or bleeding. He was able to ambulate to the restroom area without chest pain or shortness of breath. He admits that he is weak and tired but feels good being out of bed for the first time. He was alone in his hospital room. Review of systems: As above. Physical Exam Physical Exam: Gen.: No acute distress. Alert and oriented. HEENT: Anicteric sclera. Neck: No JVD. Cardiac: PMI was nondisplaced. No ventricular heave. Regular. Normal S1-S2. 1/6 systolic murmur. No rubs or gallops. Pulmonary: Clear to auscultation bilaterally without wheezes, rales, or rhonchi. Abdomen: Soft, nontender, nondistended, with normoactive bowel sounds. No bruits noted. Extremities: 2+ radial pulses bilaterally. 2+ posterior tibialis pulses bilaterally. No significant pitting edema or cyanosis. Psychiatric: Affect appears appropriate. Results & Data ([facility]) Vital Signs (Past 12 Hours) Vital Signs Temp Pulse Resp BP Pulse Ox 05/15/21 11:30 36.9 C 73 25 H 125/69 92 05/15/21 11:21 71 25 H 116/71 05/15/21 11:00 67 28 H 91 05/15/21 10:30 61 20 107/78 94 05/15/21 10:00 66 22 104/75 93 05/15/21 09:30 67 23 121/79 94 05/15/21 09:00 67 22 110/74 92 05/15/21 08:30 69 24 117/74 94 05/15/21 08:00 70 29 H 109/72 92 05/15/21 07:40 69 25 H 92 05/15/21 07:32 36.7 C 73 27 H 115/82 93 05/15/21 07:20 68 26 H 91 05/15/21 07:00 69 26 H 110/73 90 05/15/21 06:06 64 24 109/73 93 05/15/21 05:00 75 22 113/66 88 L 05/15/21 04:00 36.8 C 75 21 111/67 93 05/15/21 03:01 75 24 89/74 L 89 L 05/15/21 02:00 70 27 H 99/60 L 89 L 05/15/21 01:00 67 24 113/78 93 05/15/21 00:00 36.7 C 71 24 107/75 95 Intake & Output 0105/14/21 05/15/21 05/16/21 06:59 06:59 06:59 06:59 Intake Total 4521.836 / 4521.836 1728.202 / 1728.202 200 / 200 Output Total 1340 / 1340 1405 / 1405 Balance 3181.836 / 3181.836 323.202 / 323.202 200 / 200 Weight 197 lb 5.019 oz 198 lb 13.711 oz Laboratory Results Laboratory Results - last 24 hr 05/14/21 05/14/21 05/15/21 16:57 23:01 05:24 WBC RBC Hgb Hct MCV MCH MCHC RDW Std Deviation RDW Coeff of Jacque Plt Count MPV Immature Gran % (Auto) Neut % (Auto) Lymph % (Auto) [place] % (Auto) Eos % (Auto) Baso % (Auto) Neut # (Auto) Lymph # (Auto) [place] # (Auto) Eos # (Auto) Baso # (Auto) Immature Gran # (Auto) Sodium Potassium Chloride Carbon Dioxide Anion Gap BUN Creatinine Est Cr Clr Drug Dosing Est GFR ( Amer) Est GFR (Non-Af Amer) BUN/Creatinine Ratio Glucose POC Glucose 135 H 128 H 117 H Calcium Phosphorus Magnesium 05/15/21 05/15/21 05:30 05:30 WBC 6.85 RBC 4.08 L Hgb 13.2 L Hct 38.1 L MCV 93.4 MCH 32.4 MCHC 34.6 RDW Std Deviation 46.2 RDW Coeff of Jacque 13.5 Plt Count 122 L D MPV 9.5 Immature Gran % (Auto) 0.3 Neut % (Auto) 81.2 Lymph % (Auto) 7.3 [place] % (Auto) 9.9 Eos % (Auto) 1.2 Baso % (Auto) 0.1 Neut # (Auto) 5.56 Lymph # (Auto) 0.50 L [place] # (Auto) 0.68 H Eos # (Auto) 0.08 Baso # (Auto) 0.01 Immature Gran # (Auto) 0.02 Sodium 133 L Potassium 3.8 Chloride 102 Carbon Dioxide 26 Anion Gap 5.0 BUN 13 Creatinine 1.04 Est Cr Clr Drug Dosing 75.9 Est GFR ( Amer) 86.9 Est GFR (Non-Af Amer) 75.0 BUN/Creatinine Ratio 12.2 Glucose 118 H POC Glucose Calcium 7.9 L Phosphorus 3.0 Magnesium 2.2 Diagnostic Findings Telemetry personally reviewed: No arrhythmia in the last 24 hours. Sinus rhythm. Medications Administered Current Inpatient Medications Aspirin (Aspirin 81 Mg Ectab) 81 mg PO QAM [facility] Stop: 06/13/21 08:59 Last Admin: 05/15/21 07:57 Dose: 81 mg Documented by: Atorvastatin Calcium (Atorvastatin 40 Mg Tab) [facility] Stop: 06/12/21 10:59 Last Admin: 05/15/21 07:58 Dose: 80 mg Documented by: Atropine Sulfate (Atropine Sulfate 0.1 Mg/Ml 10ml Syr) 0.5 mg IV UD PRN PRN Reason: bradycardia/hypotension Stop: 06/12/21 09:39 Dextrose (Dextrose 50% 50 Ml Syringe) 25 - 50 ml IV UD PRN; Protocol PRN Reason: Hypoglycemia Protocol Stop: 06/12/21 17:29 Glucagon (Glucagon For Inj 1 Mg Vial) 1 mg IM UD PRN; Protocol PRN Reason: Hypoglycemia Protocol Stop: 06/12/21 17:29 Glucose (Glucose 40% Gel 15 Gm Tube) 15 - 30 gm PO UD PRN; Protocol PRN Reason: Hypoglycemia Protocol Stop: 06/12/21 17:29 Glucose (Glucose 10 Tabs/Tube) 4 - 8 tabs PO UD PRN; Protocol PRN Reason: Hypoglycemia Protocol Stop: 06/12/21 17:29 Heparin Sodium (Porcine) (Heparin Sod 5,000 Unit/0.5 Ml Vial) 5,000 units SQ Q12 [facility] Stop: 06/13/21 20:59 Last Admin: 05/15/21 07:57 Dose: 5,000 units Documented by: Norepinephrine Bitartrate (Levophed/D5w) 8 mg in 508 mls @ 6.553 mls/hr IV .Q24H [facility]; Protocol Stop: 06/12/21 09:59 Last Admin: 05/15/21 07:58 Dose: Not Given Documented by: Amiodarone HCl/Dextrose (Nexterone / D5w) 360 mg in 200 mls @ 16.667 mls/hr IV .Q12H [facility] Stop: 06/12/21 14:24 Last Admin: 05/15/21 11:13 Dose: 0.5 mg/min, 16.7 mls/hr Documented by: Pantoprazole Sodium 40 mg/ (Syringe) 10 mls @ 5 mls/min IV DAILY@1100 [facility] Stop: 06/12/21 19:29 Last Admin: 05/15/21 10:55 Dose: 5 mls/min Documented by: Acetaminophen ([facility]) 1,000 mg in 100 mls @ 400 mls/hr IV Q8H PRN PRN Reason: Fever Stop: 05/16/21 21:18 Last Infusion: 05/13/21 22:04 Dose: Infused Documented by: Insulin Aspart (Insulin Aspart Per Unit) 0 units SC Q6 [facility] Stop: 06/13/21 11:59 Last Admin: 05/15/21 11:36 Dose: Not Given Documented by: Metoprolol Tartrate (Metoprolol Tartrate 25 Mg Tab) 12.5 mg PO BID [facility] Stop: 06/14/21 08:59 Last Admin: 05/15/21 10:54 Dose: 12.5 mg Documented by: Miscellaneous (Icu Electrolyte Replacement Protocol) 1 ea N/A BID@ [facility]; Protocol Stop: 05/20/21 17:59 Last Admin: 05/15/21 06:35 Dose: Not Given Documented by: Miscellaneous (Carbohydrates For Hypoglycemia ) 15 - 30 gm PO UD PRN PRN Reason: Hypoglycemia Treatment Stop: 06/12/21 17:29 Miscellaneous Information (Pharmacy Glycemic Mgmt Consult) 1 ea N/A UD PRN PRN Reason: Consult Stop: 06/12/21 17:25 Nitroglycerin (Nitroglycerin Sl 0.4 Mg/Tab Tab) 0.4 mg SL UD PRN PRN Reason: Chest Pain Stop: 06/12/21 07:57 Ondansetron HCl (Ondansetron Inj 2 Mg/Ml 2 Ml Vial) 4 mg IV Q6H PRN PRN Reason: Nausea And Vomiting Stop: 06/12/21 09:39 Last Admin: 05/15/21 05:48 Dose: 4 mg Documented by: Ticagrelor (Ticagrelor 90 Mg Tab) 90 mg PO BID [facility] Stop: 06/12/21 20:59 Last Admin: 05/15/21 07:57 Dose: 90 mg Documented by: PG Care Time/CCT Total # of Minutes Spent Total Time Spent with Patient: Total time spent is greater than 50% in coordination of care (as documented) at patient's floor/unit and/or counseling patient: Coding Level of Care Code 29034 Subseq Hosp Care Lvl [address] elevation (STEMI) myocardial infarction I21.02 Involved coronary artery: LAD coronary artery Ischemic cardiomyopathy I25.5 Cardiogenic shock R57.0 CAD (coronary artery disease), [place] coronary artery I25.110 Associated angina: with unstable angina [place] vs. transplanted heart: [place] heart Cardiac arrest I46.9 S/P coronary artery stent placement Z95.5 Ventricular fibrillation I49.01 (1) ST elevation (STEMI) myocardial infarction Involved coronary artery: LAD coronary artery Qualified Code(s): I21.02 - ST elevation (STEMI) myocardial infarction involving left anterior descending coronary artery (2) CAD (coronary artery disease), [place] coronary artery Associated angina: with unstable angina [place] vs. transplanted heart: [place] heart Qualified Code(s): I25.110 - Atherosclerotic heart disease of [place] coronary artery with unstable angina pectoris
--- NOTE | 2021-05-15 17:42 | Hospitalist Progress Note ---
Date of Service May 15, 2021 Assessment & Plan (1) Cardiac arrest: Plan: Vfib arrest secondary to STEMI, acute LAD occlusion Achieved ROSC after CPR,epi x 2, amiodarone bolus, 2 defib shocks Taken to [place], 2 stents in LAD, anticipate stenting of residual RCA disease later this hospital stay -Doing surprisingly wellcontinue current care for now, although stable to downgrade from ICU to telemetry (2) Cardiogenic shock: Plan: And acute systolic failuremuch more stable now, only on 2 L, follow-up EF with repeat echo later in hospital stay (3) Acute respiratory failure with hypoxia: Plan: secondary to cardiac arrest and cardiogenic shock Improveddown to 2 L (4) CAD (coronary artery disease), [place] coronary artery: Plan: Old lipids referenced in cardiology note were at goal for risk, really has no traditional risk factors outside of being a male over 45. Lipids have been good, not a diabetic, not hypertensive, exercises 6 days a week including significant cardiovascular, does note that he probably could eat healthier, although it does not sound like his eating habits are atrocious. (5) Hypokalemia: Plan: Replaced (6) Hematoma: Plan: right thigh from procedure (7) Aortic valve sclerosis: Plan: mild, followed with ECHO as outpt with Dr. Mac (8) Degenerative arthritis of knee, bilateral: Plan: holding home Celebrexdiscussed Tylenol arthritis instead as a preferential, although discussed that in general being able to remain active will be the most important goal Plan: DVT prophylaxisheparin subcu Continue current care otherwise. Stable for telemetry Admission and Anticipated Discharge Date Admission Date: May 13, 2021 Subjective feeling ok. no chest pain no short of breath. outlined plan of care to the best of my abilit, answered all quetions to the best of my ability and to his/son's satisfaction. ros essentially negativ today Review of Systems Review of Systems: All systems reviewed & are unremarkable except as noted in HPI & below Physical Exam Physical Exam: In general he is awake and alert pleasant no distress. HEENT normocephalic atraumatic mucous membranes moist. Breathing unlabored no accessory muscle use good effort. Skin shows no rashes no pallor or icterus. Neuro without focal deficits. Results & Data Results & Data ([facility]) Vital Signs (Past 12 Hours) Vital Signs Temp Pulse Resp BP Pulse Ox 05/15/21 11:30 98.4 F 73 25 H 125/69 92 05/15/21 11:21 71 25 H 116/71 05/15/21 11:00 67 28 H 91 05/15/21 10:30 61 20 107/78 94 05/15/21 10:00 66 22 104/75 93 05/15/21 09:30 67 23 121/79 94 05/15/21 09:00 67 22 110/74 92 05/15/21 08:30 69 24 117/74 94 05/15/21 08:00 70 29 H 109/72 92 05/15/21 07:40 69 25 H 92 05/15/21 07:32 98.1 F 73 27 H 115/82 93 05/15/21 07:20 68 26 H 91 05/15/21 07:00 69 26 H 110/73 90 05/15/21 06:06 64 24 109/73 93 PG Care Time/CCT Total # of Minutes Spent Total Time Spent with Patient: Total time spent is greater than 50% in coordination of care (as documented) at patient's floor/unit and/or counseling patient: Coding Level of Care Code 46314 Subseq Hosp Care Lvl 3 Diagnoses Cardiac arrest I46.9 Cardiogenic shock R57.0 Acute respiratory failure with hypoxia J96.01 CAD (coronary artery disease), [place] coronary artery I25.110 Associated angina: with unstable angina [place] vs. transplanted heart: [place] heart Hypokalemia E87.6 Hematoma T14.8XXA Aortic valve sclerosis I35.8 Degenerative arthritis of knee, bilateral M17.0 (1) CAD (coronary artery disease), [place] coronary artery Associated angina: with unstable angina [place] vs. transplanted heart: [place] heart Qualified Code(s): I25.110 - Atherosclerotic heart disease of [place] coronary artery with unstable angina pectoris
[2021-05-15] MEDS ORDERED: ACETAMINOPHEN 325 MG TAB PO PRN (19:15)
[2021-05-16] MEDS: INSULIN ASPART PER UNIT SC SCH ×5 (00:09→20:29)
[2021-05-16] MEDS: ONDANSETRON INJ 2 MG/ML 2 ML VIAL IV PRN (00:21)
[2021-05-16] MEDS ORDERED: FUROSEMIDE 40 MG/4 ML VIAL IV ONE ×2 (02:37→13:21)
--- NOTE | 2021-05-16 02:39 | Communication Note ---
Date of Service: May 16, 2021 Called by bedside staff regards to increased oxygen demand with development of new crackles in lower lobes. Chest x-ray demonstrating increased opacity right lower lobe as compared to x-ray from 05/14. I/O appears to demonstrate patient is approximately 4 L positive since admission, with an EF of 20 to 25%. Given this will trial 40 mg IV Lasix. Resident Activity Tracking Resident Involvement: Resident Care Provided Care Provided: Adult [place] [facility]
[2021-05-16 07:08] LABS: Basophils # (auto) 0.01 K/uL (0-0.2); Basophils % (auto) 0.1 %; Eosinophils # (auto) 0.08 K/uL (0-0.5); Eosinophils % (auto) 1.2 %; Hematocrit (blood only) 38.6 % (42-52); Hemoglobin 13.3 g/dL (14.0-18.0); Immature Granulocytes # (auto) 0.02 K/uL (0.00-0.02); Immature Granulocytes % (auto) 0.3 %; Lymphocytes # (auto) 0.45 K/uL (1.2-3.4); Lymphocytes % (auto) 6.7 %; Mean Corpuscular Hemoglobin 32.1 pg (25-34); Mean Corpuscular Hgb Conc 34.5 g/dL (32-36); Mean Corpuscular Volume 93.2 fL (80-100); Mean Platelet Volume 9.3 fL (7.4-10.4); Monocytes # (auto) 0.75 K/uL (0.11-0.59); Monocytes % (auto) 11.1 %; Neutrophils # (auto) 5.42 K/uL (1.4-6.5); Neutrophils % (auto) 80.6 %; Platelet Count 139 K/uL (130-400); RDW Coefficient of Variation 13.3 % (11.5-14.5); RDW Standard Deviation 45.6 fL (36.4-46.3); Red Blood Count 4.14 M/uL (4.7-6.1); White Blood Count 6.73 K/uL (4.8-10.8)
[2021-05-16 07:22] LABS: BUN Creatinine Ratio 12.1 (10-20); Calcium 8.2 mg/dl (8.5-10.1); Creatinine Clr Calc Pharmacy 63.5 ml/min; Est GFR (Non-African American) 61.2 ml/min
--- NOTE | 2021-05-16 07:47 | XRay Report ---
XR chest 1V portable CLINICAL HISTORY: increased oxygen requirements with new crackles TECHNIQUE: Single frontal radiograph of the chest was obtained. Comparison: Comparison is made to chest one view 05/14/2021 FINDINGS: Interval removal of endotracheal and enteric tubes. The cardiomediastinal silhouette is normal. Inter doug development of a right lower lung airspace opacity. Left lower lung airspace opacities are unchan ged. No evidence of pleural effusion or pneumothorax. IMPRESSION: Increased right lung base airspace opacities with stable left lower lung airspace opacities. This may represent atelectasis, aspiration, and/or pneumonia. ACT 112: Negative or not required by law. Electronically signed by: Jez Mcclelland M.D. 05/16/2021 7:46 AM
[2021-05-16] MEDS: TICAGRELOR 90 MG TAB PO SCH ×2 (08:46→20:23)
[2021-05-16] MEDS: ATORVASTATIN 40 MG TAB PO SCH (08:46)
[2021-05-16] MEDS: ASPIRIN 81 MG ECTAB PO SCH (08:46)
[2021-05-16] MEDS: HEPARIN SOD 5,000 UNIT/0.5 ML VIAL SQ SCH ×2 (08:47→20:23)
[2021-05-16] MEDS: METOPROLOL TARTRATE 25 MG TAB PO SCH (08:48)
[2021-05-16] MEDS: lisinopril 2.5 MG TAB PO SCH (08:49)
--- NOTE | 2021-05-16 15:06 | Cardiology Progress Note ---
Date of Service May 16, 2021 Assessment & Plan (1) ST elevation (STEMI) myocardial infarction: (2) Ischemic cardiomyopathy: (3) Cardiogenic shock: (4) CAD (coronary artery disease), [place] coronary artery: (5) Cardiac arrest: (6) S/P coronary artery stent placement: (7) Ventricular fibrillation: Plan: ASSESSMENT/PLAN: 1. LAD STEMI s/p LAD PCI x 2: No further angina. Continue aspirin 81 mg daily indefinitely. Continue ticagrelor for least 1 year. Cardiac rehab on discharge. Continue beta-angela. MERT-inhibitor initiated today. Continue high-intensity statin therapy. 2. Cardiogenic shock: Resolved. 3. Ischemic cardiomyopathy: Severely reduced LV systolic function. Given that peak troponin was 32.2, would expect that severely reduced LV systolic function involved stunning of the myocardium. Would repeat echocardiogram prior to discharge and if EF remains less than 35%, would recommend Life Vest. Continue metoprolol succinate. Lisinopril 2.5 mg once daily initiated today. If EF remains severely reduced and patient tolerating beta-angela and MERT-inhibitor, would recommend spironolactone prior to discharge. Appears mildly hypervolemic. Recommend another dose of Lasix today. 4. Cardiac arrest/ventricular fibrillation: Occurred while acutely ischemic in the setting of STEMI. No further ventricular arrhythmia. Amiodarone discontinued. Continue beta-angela. Discussion of life vest as above if EF remains < 35%. 5. CAD: Continue medical therapy as outlined above. Planned PCI of RCA during this hospitalization as per interventional Cardiology. Dr. Mac or Dr. Nguyễn will resume cardiology care tomorrow. Please call with questions or concerns. Plan of care discussed with nursing staff. Admission and Anticipated Discharge Date Admission Date: May 13, 2021 Subjective No angina. Was noted to be hypoxic overnight and was given Lasix 40 mg IV x1. He states that he was not short of breath. He denies orthopnea. He denies chest pain, syncope, near-syncope, edema, or bleeding. Review of systems: As above. Physical Exam Physical Exam: Gen.: No acute distress. Alert and oriented. HEENT: Anicteric sclera. Neck: No JVD. Hepatic jugular reflux noted. Cardiac: Regular. Normal S1-S2. 1/6 systolic murmur. No rubs or gallops. Pulmonary: Clear to auscultation bilaterally without wheezes, rales, or rhonchi. Abdomen: Soft, nontender, nondistended, with normoactive bowel sounds. No bruits noted. Extremities: 2+ radial pulses bilaterally. 2+ posterior tibialis pulses bilaterally. No significant pitting edema or cyanosis. Right femoral catheterization site without hematoma. Psychiatric: Affect appears appropriate. Results & Data ([facility]) Vital Signs (Past 12 Hours) Vital Signs Pulse Resp Pulse Ox 05/16/21 06:32 68 20 94 05/16/21 03:44 94 05/16/21 03:11 73 20 92 Intake & Output 05/14/21 05/15/21 05/16/21 05/17/21 06:59 06:59 06:59 06:59 Intake Total 4521.836 / 4521.836 1728.202 / 4748.177 8289 / 1050 Output Total 1340 / 1340 1405 / 1405 2500 / 2500 Balance 3181.836 / 3181.836 323.202 / 323.202 -1450 / -1450 Weight 197 lb 5.019 oz 198 lb 13.711 oz 194 lb 14.218 oz Laboratory Results Laboratory Results - last 24 hr 05/16/21 05/16/21 05/16/21 06:48 06:48 08:20 WBC 6.73 RBC 4.14 L Hgb 13.3 L Hct 38.6 L MCV 93.2 MCH 32.1 MCHC 34.5 RDW Std Deviation 45.6 RDW Coeff of Jacque 13.3 Plt Count 139 MPV 9.3 Immature Gran % (Auto) 0.3 Neut % (Auto) 80.6 Lymph % (Auto) 6.7 [place] % (Auto) 11.1 Eos % (Auto) 1.2 Baso % (Auto) 0.1 Neut # (Auto) 5.42 Lymph # (Auto) 0.45 L [place] # (Auto) 0.75 H Eos # (Auto) 0.08 Baso # (Auto) 0.01 Immature Gran # (Auto) 0.02 Sodium 135 L Potassium 4.0 Chloride 100 Carbon Dioxide 29 Anion Gap 6.0 BUN 15 Creatinine 1.23 Est Cr Clr Drug Dosing 63.5 Est GFR ( Amer) 71.0 Est GFR (Non-Af Amer) 61.2 BUN/Creatinine Ratio 12.1 Glucose 103 H Calcium 8.2 L C-Reactive Protein 11.10 H Procalcitonin 05/16/21 08:20 WBC RBC Hgb Hct MCV MCH MCHC RDW Std Deviation RDW Coeff of Jacque Plt Count MPV Immature Gran % (Auto) Neut % (Auto) Lymph % (Auto) [place] % (Auto) Eos % (Auto) Baso % (Auto) Neut # (Auto) Lymph # (Auto) [place] # (Auto) Eos # (Auto) Baso # (Auto) Immature Gran # (Auto) Sodium Potassium Chloride Carbon Dioxide Anion Gap BUN Creatinine Est Cr Clr Drug Dosing Est GFR ( Amer) Est GFR (Non-Af Amer) BUN/Creatinine Ratio Glucose Calcium C-Reactive Protein Procalcitonin 0.55 H Diagnostic Findings Telemetry personally reviewed: Sinus rhythm. No arrhythmia. ECG personally reviewed 05/15/2021: Sinus rhythm 60 beats per minute. Incomplete RBBB. Inferolateral T-wave abnormality. Medications Administered Current Inpatient Medications Acetaminophen (Acetaminophen 325 Mg Tab) 650 mg PO Q4H PRN PRN Reason: Pain Stop: 06/14/21 19:14 Aspirin (Aspirin 81 Mg Ectab) 81 mg PO [facility] Stop: 06/13/21 08:59 Last Admin: 05/16/21 08:46 Dose: 81 mg Documented by: Atorvastatin Calcium (Atorvastatin 40 Mg Tab) 80 mg PO [facility] Stop: 06/12/21 10:59 Last Admin: 05/16/21 08:46 Dose: 80 mg Documented by: Atropine Sulfate (Atropine Sulfate 0.1 Mg/Ml 10ml Syr) 0.5 mg IV UD PRN PRN Reason: bradycardia/hypotension Stop: 06/12/21 09:39 Dextrose (Dextrose 50% 50 Ml Syringe) 25 - 50 ml IV UD PRN; Protocol PRN Reason: Hypoglycemia Protocol Stop: 06/12/21 17:29 Glucagon (Glucagon For Inj 1 Mg Vial) 1 mg IM UD PRN; Protocol PRN Reason: Hypoglycemia Protocol Stop: 06/12/21 17:29 Glucose (Glucose 40% Gel 15 Gm Tube) 15 - 30 gm PO UD PRN; Protocol PRN Reason: Hypoglycemia Protocol Stop: 06/12/21 17:29 Glucose (Glucose 10 Tabs/Tube) 4 - 8 tabs PO UD PRN; Protocol PRN Reason: Hypoglycemia Protocol Stop: 06/12/21 17:29 Heparin Sodium (Porcine) (Heparin Sod 5,000 Unit/0.5 Ml Vial) 5,000 units SQ Q12 [facility] Stop: 06/13/21 20:59 Last Admin: 05/16/21 08:47 Dose: 5,000 units Documented by: Insulin Aspart (Insulin Aspart Per Unit) 0 units SC Q6 [facility] Stop: 06/13/21 11:59 Last Admin: 05/16/21 13:43 Dose: Not Given Documented by: Lisinopril (Lisinopril 2.5 Mg Tab) 2.5 mg PO QAM [facility] Stop: 06/15/21 08:59 Last Admin: 05/16/21 08:49 Dose: 2.5 mg Documented by: Metoprolol Succinate (Metoprolol Succ 25mg Ext Rel Tab) 25 mg PO QAM [facility] Stop: 06/15/21 15:14 Miscellaneous (Carbohydrates For Hypoglycemia ) 15 - 30 gm PO UD PRN PRN Reason: Hypoglycemia Treatment Stop: 06/12/21 17:29 Miscellaneous Information (Pharmacy Glycemic Mgmt Consult) 1 ea N/A UD PRN PRN Reason: Consult Stop: 06/12/21 17:25 Nitroglycerin (Nitroglycerin Sl 0.4 Mg/Tab Tab) 0.4 mg SL UD PRN PRN Reason: Chest Pain Stop: 06/12/21 07:57 Ondansetron HCl (Ondansetron Inj 2 Mg/Ml 2 Ml Vial) 4 mg IV Q6H PRN PRN Reason: Nausea And Vomiting Stop: 06/12/21 09:39 Last Admin: 05/16/21 00:21 Dose: 4 mg Documented by: Ticagrelor (Ticagrelor 90 Mg Tab) 90 mg PO BID [facility] Stop: 06/12/21 20:59 Last Admin: 05/16/21 08:46 Dose: 90 mg Documented by: PG Care Time/CCT Total # of Minutes Spent Total Time Spent with Patient: Total time spent is greater than 50% in coordination of care (as documented) at patient's floor/unit and/or counseling patient: Coding Level of Care Code 83226 Subseq Hosp Care Lvl [address] elevation (STEMI) myocardial infarction I21.02 Involved coronary artery: LAD coronary artery Ischemic cardiomyopathy I25.5 Cardiogenic shock R57.0 CAD (coronary artery disease), [place] coronary artery I25.110 Associated angina: with unstable angina [place] vs. transplanted heart: [place] heart Cardiac arrest I46.9 S/P coronary artery stent placement Z95.5 Ventricular fibrillation I49.01 (1) ST elevation (STEMI) myocardial infarction Involved coronary artery: LAD coronary artery Qualified Code(s): I21.02 - ST elevation (STEMI) myocardial infarction involving left anterior descending coronary artery (2) CAD (coronary artery disease), [place] coronary artery Associated angina: with unstable angina [place] vs. transplanted heart: [place] heart Qualified Code(s): I25.110 - Atherosclerotic heart disease of [place] coronary artery with unstable angina pectoris
[2021-05-16] MEDS: METOPROLOL SUCC 25MG EXT REL TAB PO SCH (15:45)
[2021-05-16] MEDS ORDERED: Nursing to Pharmacy Communication SCH (17:15)
--- NOTE | 2021-05-16 18:53 | Hospitalist Progress Note ---
Date of Service May 16, 2021 Assessment & Plan (1) Cardiac arrest: Plan: Vfib arrest secondary to STEMI, acute LAD occlusion Achieved ROSC after CPR,epi x 2, amiodarone bolus, 2 defib shocks Taken [facility], 2 stents in LAD, anticipate stenting of residual RCA disease later this hospital stay -Doing well overall. Continue current care, follow closely (2) Cardiogenic shock: Plan: And acute systolic failure on admission, was doing better, and then hypoxia overnight seems to probably relates to a bit more of an acute systolic failure. Inflammatory markers are low but nonspecific, and chest x-ray was a little bit nonspecific, will want to follow for any hint of developing pneumoniabut with no constitutional symptoms, minimal cough, and the overall situationalmost certainly failure. Was given additional Lasix. Continue to follow (3) Acute respiratory failure with hypoxia: Plan: secondary to cardiac arrest and cardiogenic shock See abovealmost certainly acute systolic failure again todaygave additional Lasixvigilance for any hint of pneumonia, but no clear role for empiric antibiotics at this time (4) CAD (coronary artery disease), [place] coronary artery: Plan: Old lipids referenced in cardiology note were at goal for risk, really has no traditional risk factors outside of being a male over 45. Lipids have been good, not a diabetic, not hypertensive, exercises 6 days a week including significant cardiovascular, does note that he probably could eat healthier, although it does not sound like his eating habits are atrocious. For stenting of RCA this hospitalization (5) Hypokalemia: Plan: Replaced (6) Hematoma: Plan: right thigh from procedure (7) Aortic valve sclerosis: Plan: mild, followed with ECHO as outpt with Dr. Mac (8) Degenerative arthritis of knee, bilateral: Plan: holding home Celebrexdiscussed Tylenol arthritis instead as a preferential, although discussed that in general being able to remain active will be the most important goal Plan: DVT prophylaxisheparin subcu Continue current care otherwise. Stable for telemetry Admission and Anticipated Discharge Date Admission Date: May 13, 2021 Subjective Was hypoxic overnightno shortness of breath. No chest pain. Generally feeling about the same. No new complaints. Review of Systems Review of Systems: All systems reviewed & are unremarkable except as noted in HPI & below Physical Exam Physical Exam: In general he is awake and alert pleasant no distress. HEENT normocephalic atraumatic mucous membranes moist. Breathing unlabored no accessory muscle usedoes have faint rales and diminished air entry, no acce ssory muscle use no conversational dyspnea. Good effort. Neuro no focal deficits. Results & Data Results & Data ([facility]) Vital Signs (Past 12 Hours) Vital Signs Temp Pulse Pulse Resp BP BP Pulse Ox 05/16/21 17:15 99.7 F H 83 17 119/77 92 05/16/21 14:00 79 24 05/16/21 12:00 98.2 F 87 29 H 93 05/16/21 11:41 88 26 H 119/76 95 05/16/21 10:00 79 23 90 05/16/21 08:45 86 22 134/69 93 05/16/21 08:00 98.1 F 75 20 92 05/16/21 07:00 67 22 91 PG Care Time/CCT Total # of Minutes Spent Total Time Spent with Patient: Total time spent is greater than 50% in coordination of care (as documented) at patient's floor/unit and/or counseling patient: Coding Level of Care Code 60823 Subseq Hosp Care Lvl 3 Diagnoses Cardiac arrest I46.9 Cardiogenic shock R57.0 Acute respiratory failure with hypoxia J96.01 CAD (coronary artery disease), [place] coronary artery I25.110 Associated angina: with unstable angina [place] vs. transplanted heart: [place] heart Hypokalemia E87.6 Hematoma T14.8XXA Aortic valve sclerosis I35.8 Degenerative arthritis of knee, bilateral M17.0 (1) CAD (coronary artery disease), [place] coronary artery Associated angina: with unstable angina [place] vs. transplanted heart: [place] heart Qualified Code(s): I25.110 - Atherosclerotic heart disease of [place] coronary artery with unstable angina pectoris
--- NOTE | 2021-05-17 05:45 | Electrocardiogram Report ---
Test Reason : Blood Pressure : / mmHG Vent. Rate : 068 BPM Atrial Rate : 068 BPM P-R Int : 174 ms QRS Dur : 094 ms QT Int : 426 ms P-R-T Axes : 034 089 158 degrees QTc Int : 452 ms Normal sinus rhythm Incomplete right bundle branch block T wave abnormality, consider inferolateral ischemia Abnormal ECG When compared with ECG of 13-MAY-2021 13:05, No significant change was found Confirmed by Yunior Matt ([id number]) on 05/17/2021 5:45:08 AM Referred By: REFERRED SELF Confirmed By:Yunior Matt
[2021-05-17 06:39] LABS: Basophils # (auto) 0.02 K/uL (0-0.2); Basophils % (auto) 0.3 %; Hematocrit (blood only) 38.5 % (42-52); Hemoglobin 13.2 g/dL (14.0-18.0); Immature Granulocytes # (auto) 0.02 K/uL (0.00-0.02); Immature Granulocytes % (auto) 0.3 %; Lymphocytes # (auto) 0.48 K/uL (1.2-3.4); Lymphocytes % (auto) 7.2 %; Mean Corpuscular Hgb Conc 34.3 g/dL (32-36); Mean Corpuscular Volume 93.4 fL (80-100); Mean Platelet Volume 9.3 fL (7.4-10.4); Monocytes # (auto) 1.09 K/uL (0.11-0.59); Monocytes % (auto) 16.4 %; Neutrophils # (auto) 4.82 K/uL (1.4-6.5); Neutrophils % (auto) 72.8 %; Platelet Count 170 K/uL (130-400); RDW Coefficient of Variation 13.1 % (11.5-14.5); RDW Standard Deviation 45.1 fL (36.4-46.3); Red Blood Count 4.12 M/uL (4.7-6.1); White Blood Count 6.63 K/uL (4.8-10.8)
[2021-05-17 07:01] LABS: BUN Creatinine Ratio 14.7 (10-20); C Reactive Protein 13.1 mg/dl (0-0.29); Calcium 8.2 mg/dl (8.5-10.1); Creatinine Clr Calc Pharmacy 65.4 ml/min; Est GFR (African American) 74.6 ml/min; Est GFR (Non-African American) 64.4 ml/min; Potassium 3.6 mmol/L (3.5-5.1)
--- NOTE | 2021-05-17 08:12 | XCELERA ---
[id number]
[2021-05-17] MEDS: INSULIN ASPART PER UNIT SC SCH ×3 (08:17→16:10)
--- NOTE | 2021-05-17 08:22 | Pharmacy Report ---
Pharmacy Glycemic Sign Off Nt - Date of Service May 17, 2021 - Assessment & Plan ASSESSMENT: * Pharmacy was consulted by Dr Messina on 05/13/21 for glycemic control and to write orders per [facility] inpatient glycemic control protocol. * Major changes made by pharmacy to antidiabetic regimen include: * addition of Novolog with correction factor * Patient has been receiving/requiring 0 units of insulin per day for adequate glycemic control * BSGs ranging 98-146 mg/dl * Patient mostly refusing insulin administration at this point * Do not anticipate further changes in patient status that would quickly deteriorate glycemic control * Please see recommendations for outpatient antidiabetic regimen below. PLAN FOR INPATIENT GLYCEMIC CONTROL: No changes needed to current regimen. * Hold basal insulin * Continue NovoLog per scale ACHS/Q6hrs while NPO * Goal range = 120-150 mg/dl * CF = 25 mg/dl/unit * No carb coverage * Pharmacy is signing off of glycemic consult and will no longer be making adjustments to inpatient regimen. Please feel free to re-consult if needed. Thank you. DISCHARGE RECOMMENDATIONS: * A1c 5.1% (05/14/21) - no antidiabetic medications necessary at discharge
[2021-05-17] MEDS: ASPIRIN 81 MG ECTAB PO SCH (08:31)
[2021-05-17] MEDS: ATORVASTATIN 40 MG TAB PO SCH (08:31)
[2021-05-17] MEDS: HEPARIN SOD 5,000 UNIT/0.5 ML VIAL SQ SCH ×2 (08:31→20:35)
[2021-05-17] MEDS: lisinopril 2.5 MG TAB PO SCH (08:31)
[2021-05-17] MEDS: TICAGRELOR 90 MG TAB PO SCH ×2 (08:32→20:35)
[2021-05-17] MEDS: METOPROLOL SUCC 25MG EXT REL TAB PO SCH (08:32)
--- NOTE | 2021-05-17 10:01 | Cardiology Progress Note ---
Date of Service May 17, 2021 Assessment & Plan (1) ST elevation (STEMI) myocardial infarction: Plan: -s/p 2 overlapping TAMELA in the mid LAD. -troponin peaked at 32.2. -continue metoprolol succinate, lisinopril, aspirin, and ticagrelor. -continue high-dose atorvastatin. (2) CAD (coronary artery disease), [place] coronary artery: Plan: -staged PCI of mid and distal RCA lesions today. -other disease included 30% ostial LAD, 50% ostial D1. -medical management as noted above. (3) Ischemic cardiomyopathy: Plan: -LVEF of 20-25% with a large anterior wall motion abnormality on admission. -repeat echocardiogram notes is subtle wall motion abnormality and normal LVEF of 60-65%. -continue metoprolol succinate and lisinopril. Admission and Anticipated Discharge Date Admission Date: May 13, 2021 Subjective Is resting comfortably bedside chair without complaints of chest pain or dyspnea. We have discussed his recent event along with the planned PCI of his RCA today. Physical Exam Physical Exam: In general this is a well-developed well-nourished white male in no acute distress. HEENT exam is negative. Neck is supple with full carotid upstrokes. There are no carotid bruits. No JVD. There is no thyromegaly. Cardiovascular exam reveals a regular rhythm with a normal S1 and S2. No obvious murmurs. No S3. Abdomen is soft and nontender without bruits. Extremities reveal intact radial artery and posterior tibial pulses bilaterally. There is no peripheral edema. 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 PG Care Time/CCT Total # of Minutes Spent Total Time Spent with Patient: Total time spent is greater than 50% in coordination of care (as documented) at patient's floor/unit and/or counseling patient: Coding Level of Care Code 74957 Subseq Hosp Care Lvl [address] elevation (STEMI) myocardial infarction I21.02 Involved coronary artery: LAD coronary artery CAD (coronary artery disease), [place] coronary artery I25.110 Associated angina: with unstable angina [place] vs. transplanted heart: [place] heart Ischemic cardiomyopathy I25.5 (1) ST elevation (STEMI) myocardial infarction Involved coronary artery: LAD coronary artery Qualified Code(s): I21.02 - ST elevation (STEMI) myocardial infarction involving left anterior descending coronary artery (2) CAD (coronary artery disease), [place] coronary artery Associated angina: with unstable angina [place] vs. transplanted heart: [place] heart Qualified Code(s): I25.110 - Atherosclerotic heart disease of [place] coronary artery with unstable angina pectoris
[2021-05-17] MEDS ORDERED: MIDAZOLAM HCL 1 MG/ML 2ML VIAL ONE ×2 (11:48→12:53)
[2021-05-17 11:49] LABS: Influenza A virus by PCR Negative (Neg); Influenza B virus by PCR Negative (Neg); RSV by PCR Negative (Neg); SARS CoV2 RNA(COVID-19) InHosp NEGATIVE (Negative)
[2021-05-17] MEDS ORDERED: NITROGLYCERIN/D5W 100MCG/ML 20ML SYR ONE (11:49)
[2021-05-17] MEDS ORDERED: HEPARIN (PORCINE) 1000 UNIT/ML 10 ML (CATH LAB USE ONLY) ONE (11:49)
[2021-05-17] MEDS ORDERED: fentaNYL citrate 100 MCG/2 ML VIAL ONE ×2 (11:49→12:53)
[2021-05-17] MEDS ORDERED: niCARdipine HCL INJ 2.5 MG/ML 10 ML AMP ONE (11:49)
--- NOTE | 2021-05-17 12:19 | Pre Anesthesia Assessment ---
Date of Service May 17, 2021 Pre Sedation Assessment Vital Signs Temp Pulse Pulse Resp BP Pulse Ox 05/17/21 11:38 98.4 F 67 17 93/64 L 90 05/17/21 07:12 98.2 F 62 16 113/75 98 05/17/21 03:54 98.8 F 64 16 122/71 99 05/16/21 23:46 65 05/16/21 23:40 99.5 F 68 16 108/68 94 05/16/21 19:54 100.0 F H 76 16 108/71 90 05/16/21 17:15 99.7 F H 83 17 119/77 92 05/16/21 14:00 79 24 Cardiovascular RRR, no murmur, no edema Respiratory normal respiratory effort, lungs clear to auscultation Pre-Sedation Airway Assessment Smoking Status: Never smoker Hx Sleep Apnea: No Hx Difficult Intubation: No Short, Thick Neck: No Oral Cavity: + WNL Mallampati Class: III ASA: ASA3 Procedure Planning Contraindications for Sedation: none Current Medications Reviewed: Yes Notes The planned sedation has been discussed with the patient. Informed Consent was obtained. I have identified the patient, determined the appropriateness of sedation and have assessed the patient immediately prior to the procedure. All medicine(s) and interventions are by my order.
--- NOTE | 2021-05-17 14:06 | Post Anesthesia Assessment ---
Date of Service May 17, 2021 Post Sedation Assessment Vital Signs Temp Pulse Pulse Resp BP Pulse Ox 05/17/21 13:50 66 16 123/65 92 05/17/21 13:35 77 16 122/62 88 L 05/17/21 11:38 98.4 F 67 17 93/64 L 90 05/17/21 07:12 98.2 F 62 16 113/75 98 05/17/21 03:54 98.8 F 64 16 122/71 99 05/16/21 23:46 65 05/16/21 23:40 99.5 F 68 16 108/68 94 05/16/21 19:54 100.0 F H 76 16 108/71 90 05/16/21 17:15 99.7 F H 83 17 119/77 92 Recovery Score Activity: Moves 4 extremities Respiration: Deep Breath/Cough Circulation: +/-20% PreAnes Value Consciousness: Fully Awake Oxygen Saturation: O2 needed for >90% Post Anesthesia Score: 9 Discharge Sedation Level of Care: Fast Track Phase II Post Sedation Plan On clinical assessment, the patient appears to have tolerated the sedation without complications. Patient is recovering as anticipated. Patient will continue to be monitored by nursing and may be discharged when sedation discharge criteria are met per below protocol. Upon Completions of procedure up to 15 minutes continue every 5 minute vital signs and the P.A.R. score; then discharge to a Phase I or Fast Track to Phase II per the following guidelines: * Discharge Patient to appropriate Phase II area if PAR is 8 or greater or return to pre- procedure baseline. The post - procedure orders will be as directed. * If PAR score is less than 8 or not return to pre-procedure baseline then patient will follow Phase I monitoring till PAR is reached for Phase II. The Phase I may be done in procedure room or may call to secure a Phase I area. * If naloxone or flumazenil are used for reversal, hold in Phase I for continued monitoring from when last reversal dose was given for a minimum of 60 minutes or longer pending the nurse and/or physician discretion of patient condition before discharge to Phase II. Please call the Sedation Physician to re-evaluate and complete post-note for discharge to Phase II area. Do NOT discharge from procedure sedation or Phase 1 until post- sedation evaluation note is complete by procedure /sedation MD Sedation Discharge Instructions to be given to the patient at discharge to home.
--- NOTE | 2021-05-17 14:08 | Cardiac Catheterization ---
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 Cardiac Status Clinical evaluation leading to the procedure CAD Presenation: STEMI Anginal Classification: CCS IV Heart Failure: No Cardiogenic Shock within 24 Hours: No Cardiac Arrest within 24 Hours: No Imaging Studies Past 6 Months: Yes Stress Studies Past 6 Months: No Diagnostic Physicians Name: Lester Nguyễn MD Status: Elective Closure Device Percutaneous Entry Location: Radial Closure Device: Radial Band Recommendations: PCI without planned CABG PCI Indication: Staged PCI Lesion Segment Name: Mid RCA Culprit Artery: No Stenosis Prior to Rx (%): 95 Chronic Total Occlusion: No IVUS: No FFR: No Pre-Procedure MANDY Flow: 3 Previously Treated Lesion: No Lesion Complexity: Non-High/Non-C Lesion Length (mm): 20 Thrombus Present: No Bifurcation Lesion: No Guidewire Across Lesion: Stenosis Post-Procedure (%): 0 Post-Procedure MANDY Flow: 3 Devices(s) Deployed: Yes Yes Intraprocedure Events Significant Disection: No Perforation: No Cardiac Cath Procedure Full Procedure Date May 17, 2021 Pre-Procedure Diagnosis Pre-Procedure Diagnosis: CAD AUC Score AUC Score: 7 Post-Procedure Diagnosis Post-Procedure Diagnosis: Severe CAD, Successful PCI and Normal Intracardiac Pressures Procedure(s) Performed Procedure(s) Performed: Coronary Angiography, Left Heart Cath and Drug Eluting Stent Community Organization Worker Lester Nguyễn MD Jewel Bearing Driller(s) Alireza Estimated Blood Loss Estimated Blood Loss: 10 Medication(s) Medication(s): Fentanyl, Heparin, Lidocaine 1%, Nitroglycerin and Versed Medication(s): Ticagrelor Summary of Findings Indication: Prior anterior STEMI/[id number] cardiac arrest post PCI to LAD. Here for staged PCI of mid/distal RCA. Access: 6 Fr right radial artery Catheters: AR-1 guide, pigtail Findings: RCA - dominant, superior/anterior takeoff, 95% mid stenosis, 90% distal disease in right PAV. RPDA, RPL without significant disease. LVEDP -13 -- PCI -- Antithrombotic therapy: Heparin, ticagrelor Procedure: RCA cannulated with AR-1 guide Whisper wire passed across lesion into distal vessel Telescope support catheter placed to proximal RCA Distal RCA and mid RCA predilated with 2.0 compliant balloon Dilated distal lesion stented with 2.25 x 22 mm [place] drug-eluting stent Dilated mid lesion stented with 3.0 x 22 mm [place] drug-eluting stent Mid RCA stent postdilated with 3.25 NC IC vasodilators administered for spasm Post procedure MANDY 3 flow, stentS well expanded with minimal residual stenosis and no apparent cardiac complications. Arterial Closure: TR band Summary: 1. Successful PCI of mid RCA with 3.0 x 22 mm [place] drug-eluting stent (postdilated with 3.25 NC). 2. Successful PCI of distal RCA with 2.25 x 22 mm [place] drug-eluting stent. Recommendations: To PCU for continued monitoring Continue dual-antiplatelet therapy for at least 1 year, consider extended therapy in the setting of multivessel disease. Hemodynamics Rest Ao:: 98/56/72 Final Ao: 114/62/81 LV: 121/13 Recommendations Recommendations: PCI without planned CABG Specimens Specimens: None Radiation Exposure (mGy) 2927 Contrast (mls) 125 Fluids (cc crystalloids) Fluids (cc crystalloids): 173 Drains Drains: None Anesthesia Moderate 8425-7613 Procedural Complication(s) None Disposition PCU I attest to the content of the Intraoperative Record and any orders documented therein. Any exceptions are noted below. [facility] Card Cath Procedure Codes Cardiac Catheterization Procedure 1: Cardiovascular Cath Procedures: 36381 Left Heart Cath (+/-LV) Moderate Sedation Procedure 1: Sedation/Anesthesia: 21852 Mod Sedation by the same physician;Init15 Min Child Age 5 & Up Procedure 2: Sedation/Anesthesia: 99130 Mod Sedation by the same physician; Ea [id number] Minutes Stenting Procedure 1: Cardiovascular Stent Procedures: 07913 Perc transcatheter placement of intracoronary stent(s), with ang PG Care Time/CCT Total # of Minutes Spent Total Time Spent with Patient: Total time spent is greater than 50% in coordination of care (as documented) at patient's floor/unit and/or counseling patient:
[2021-05-17] MEDS ORDERED: SODIUM CHLORIDE 0.9% 1000ML 1,000 ML IV SCH (14:30)
--- NOTE | 2021-05-17 15:29 | Hospitalist Progress Note ---
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 Continue current care, follow closely (2) Cardiogenic shock: Plan: And acute systolic failure on admission, with EF initially 25-30% with wall motion abnormalities on echocardiogram shortly after his STEMI Repeat echocardiogram on 05/17 now with normal EF 60-65% and mild distal inferior and distal septal hypokinesis, much improved He was given IV Lasix initially and again on 05/16 for mild hypoxia Chest x-ray with bilateral infiltrates-question if could be atelectasis also given low-grade fevers and splinting due to chest pain from CPR trauma Now weaned off oxygen CRP quite high at 13.1 but could be from recent cardiac arrest -Add incentive spirometry -Encouraged ambulation around the halls after recovery from this cardiac catheterization Blood pressures are now normal (3) Acute respiratory failure with hypoxia: Plan: secondary to cardiac arrest and cardiogenic shock, as well as likely some atelectasis as above Received Lasix initially and again on 05/16 Wean off O2 as able to (4) CAD (coronary artery disease), [place] coronary artery: Plan: Lipids here are excellent, LDL 71, HDL 64 He really has no traditional risk factors outside of being a male over 45. He is not a diabetic, not hypertensive, exercises 6 days a week including significant cardiovascular, does note that he probably could eat healthier, although it does not sound like his eating habits are atrocious. Status post 2 stents to the LAD for STEMI on presentation Now status post 2 stents to the RCA on 05/17 as a staged procedure -Started aspirin and Brilinta for at least 1 year, but cardiology notes could be extended beyond that given severe multivessel disease -Started high intensity atorvastatin 80 mg daily -Started Toprol-XL 25 mg daily -Started lisinopril and increasing today to 5 mg p.o. once daily (5) Hypokalemia: Plan: Replaced and resolved (6) Hematoma: Plan: right thigh from procedure-resolved (7) Aortic valve sclerosis: Plan: mild, followed with ECHO as outpt with Dr. Mac (8) Degenerative arthritis of knee, bilateral: Plan: holding home Celebrexdiscussed Tylenol arthritis instead as a preferential, although discussed that in general being able to remain active will be the most important goal Plan: DVT prophylaxisheparin subcu Can discontinue glucose checks as he does not have diabetes and blood sugars have been normal Disposition-continued stay, but expect likely discharge to home tomorrow. It turns out this patient has a [facility] PCP. [facility] who said it was okay for the patient to remain on my service since he will likely be discharged tomorrow and she will help arrange for outpatient follow-up with PCP Admission and Anticipated Discharge Date Admission Date: May 13, 2021 Subjective Pt just returned from cath and had 2 RCA stents placed. He has some pain in chest with deep breaths and it makes him want to cough. He was walking laps around the halls before his cath today and had no dyspnea. No other issues. In discussion with the nurse, the computer states that the patient is on 6 L nasal cannula, however he was weaned to room air this morning Tele with normal sinus rhythm with rates in the 60s to 70s Review of Systems Review of Systems: All systems reviewed & are unremarkable except as noted in HPI & below He is having a sore throat since he was extubated Physical Exam Constitutional: WD/WN, vitals as above ENMT: external ear and nose normal, oropharynx normal (Except small area of ecchymosis right posterior OP) Neck: trachea midline, no thyromegaly Respiratory: normal respiratory effort, lungs clear to auscultation Cardiovascular: RRR, no murmur, no edema Chest (Breasts): Chest: normal inspection of chest Gastrointestinal (Abdomen): normal bowel sounds, soft, nontender, no hepatosplenomegaly Musculoskeletal: Extremities: + extremities abnormal to inspection (Right wrist with TR band in place), no cyanosis and no clubbing Skin: no rashes, warm and dry Neurologic: PERRL, EOMI, accommodation nl, no face palsy, no dysarthria Psychiatric: A+Ox3, euthymic affect Lymphatic: no lymphedema Results & Data Results & Data ([facility]) Vital Signs (Past 12 Hours) Vital Signs Temp Pulse Resp BP BP Pulse Ox 05/17/21 14:51 87 131/84 05/17/21 14:36 86 14 125/79 95 05/17/21 14:21 36.6 C 85 14 117/80 95 05/17/21 13:50 66 16 123/65 92 05/17/21 13:35 77 16 122/62 88 L 05/17/21 11:38 36.9 C 67 17 93/64 L 90 05/17/21 07:12 36.8 C 62 16 113/75 98 05/17/21 03:54 37.1 C 64 16 122/71 99 Laboratory Results 05/17/21 05/17/21 05/17/21 Range/Units Unknown 13:01 11:33 WBC (4.8-10.8) K/uL RBC (4.7-6.1) M/uL Hgb (14.0-18.0) g/dL Hct (42-52) % MCV (80-100) fL MCH (25-34) pg MCHC (32-36) g/dL RDW Std Deviation (36.4-46.3) fL RDW Coeff of Jacque (11.5-14.5) % Plt Count (130-400) K/uL MPV (7.4-10.4) fL Immature Gran % (Auto) % Neut % (Auto) % Lymph % (Auto) % [place] % (Auto) % Eos % (Auto) % Baso % (Auto) % Neut # (Auto) (1.4-6.5) K/uL Lymph # (Auto) (1.2-3.4) K/uL [place] # (Auto) (0.11-0.59) K/uL Eos # (Auto) (0-0.5) K/uL Baso # (Auto) (0-0.2) K/uL Immature Gran # (Auto) (0.00-0.02) K/uL Activ Coag Time Kaolin 309 H (94-140) SECONDS Sodium (136-145) mmol/L Potassium (3.5-5.1) mmol/L Chloride (98-107) mmol/L Carbon Dioxide (21-32) mmol/L Anion Gap (3-11) BUN (7-18) mg/dl Creatinine (0.6-1.4) mg/dl Est Cr Clr Drug Dosing ml/min Est GFR ( Amer) ml/min Est GFR (Non-Af Amer) ml/min BUN/Creatinine Ratio (10-20) Glucose (70-99) mg/dl POC Glucose 88 (70-99) mg/dl Calcium (8.5-10.1) mg/dl C-Reactive Protein (0-0.29) mg/dl SARS-CoV-2 (PCR) NEGATIVE (Negative) Influenza Type A (PCR) Negative (Neg) Influenza Type B (PCR) Negative (Neg) RSV (RT-PCR) Negative (Neg) 05/17/21 05/17/21 05/17/21 Range/Units 07:25 05:47 05:47 WBC 6.63 (4.8-10.8) K/uL RBC 4.12 L (4.7-6.1) M/uL Hgb 13.2 L (14.0-18.0) g/dL Hct 38.5 L (42-52) % MCV 93.4 (80-100) fL MCH 32.0 (25-34) pg MCHC 34.3 (32-36) g/dL RDW Std Deviation 45.1 (36.4-46.3) fL RDW Coeff of Jacque 13.1 (11.5-14.5) % Plt Count 170 (130-400) K/uL MPV 9.3 (7.4-10.4) fL Immature Gran % (Auto) 0.3 % Neut % (Auto) 72.8 % Lymph % (Auto) 7.2 % [place] % (Auto) 16.4 % Eos % (Auto) 3.0 % Baso % (Auto) 0.3 % Neut # (Auto) 4.82 (1.4-6.5) K/uL Lymph # (Auto) 0.48 L (1.2-3.4) K/uL [place] # (Auto) 1.09 H (0.11-0.59) K/uL Eos # (Auto) 0.20 (0-0.5) K/uL Baso # (Auto) 0.02 (0-0.2) K/uL Immature Gran # (Auto) 0.02 (0.00-0.02) K/uL Activ Coag Time Kaolin (94-140) SECONDS Sodium 135 L (136-145) mmol/L Potassium 3.6 (3.5-5.1) mmol/L Chloride 98 (98-107) mmol/L Carbon Dioxide 32 (21-32) mmol/L Anion Gap 5.0 (3-11) BUN 17 (7-18) mg/dl Creatinine 1.18 (0.6-1.4) mg/dl Est Cr Clr Drug Dosing 65.4 ml/min Est GFR ( Amer) 74.6 ml/min Est GFR (Non-Af Amer) 64.4 ml/min BUN/Creatinine Ratio 14.7 (10-20) Glucose 102 H (70-99) mg/dl POC Glucose 98 (70-99) mg/dl Calcium 8.2 L (8.5-10.1) mg/dl C-Reactive Protein 13.10 H (0-0.29) mg/dl SARS-CoV-2 (PCR) (Negative) Influenza Type A (PCR) (Neg) Influenza Type B (PCR) (Neg) RSV (RT-PCR) (Neg) 05/16/21 05/16/21 Range/Units 20:04 17:13 WBC (4.8-10.8) K/uL RBC (4.7-6.1) M/uL Hgb (14.0-18.0) g/dL Hct (42-52) % MCV (80-100) fL MCH (25-34) pg MCHC (32-36) g/dL RDW Std Deviation (36.4-46.3) fL RDW Coeff of Jacque (11.5-14.5) % Plt Count (130-400) K/uL MPV (7.4-10.4) fL Immature Gran % (Auto) % Neut % (Auto) % Lymph % (Auto) % [place] % (Auto) % Eos % (Auto) % Baso % (Auto) % Neut # (Auto) (1.4-6.5) K/uL Lymph # (Auto) (1.2-3.4) K/uL [place] # (Auto) (0.11-0.59) K/uL Eos # (Auto) (0-0.5) K/uL Baso # (Auto) (0-0.2) K/uL Immature Gran # (Auto) (0.00-0.02) K/uL Activ Coag Time Kaolin (94-140) SECONDS Sodium (136-145) mmol/L Potassium (3.5-5.1) mmol/L Chloride (98-107) mmol/L Carbon Dioxide (21-32) mmol/L Anion Gap (3-11) BUN (7-18) mg/dl Creatinine (0.6-1.4) mg/dl Est Cr Clr Drug Dosing ml/min Est GFR ( Amer) ml/min Est GFR (Non-Af Amer) ml/min BUN/Creatinine Ratio (10-20) Glucose (70-99) mg/dl POC Glucose 110 H 146 H (70-99) mg/dl Calcium (8.5-10.1) mg/dl C-Reactive Protein (0-0.29) mg/dl SARS-CoV-2 (PCR) (Negative) Influenza Type A (PCR) (Neg) Influenza Type B (PCR) (Neg) RSV (RT-PCR) (Neg) PG Care Time/CCT Total # of Minutes Spent Total Time Spent with Patient: Total time spent is greater than 50% in coordination of care (as documented) at patient's floor/unit and/or counseling patient: Coding Level of Care Code 53658 Subseq Hosp Care Lvl 3 Diagnoses Cardiac arrest I46.9 Cardiogenic shock R57.0 Acute respiratory failure with hypoxia J96.01 CAD (coronary artery disease), [place] coronary artery I25.110 Associated angina: with unstable angina [place] vs. transplanted heart: [place] heart Hypokalemia E87.6 Hematoma T14.8XXA Aortic valve sclerosis I35.8 Degenerative arthritis of knee, bilateral M17.0 (1) CAD (coronary artery disease), [place] coronary artery Associated angina: with unstable angina [place] vs. transplanted heart: [place] heart Qualified Code(s): I25.110 - Atherosclerotic heart disease of [place] coronary artery with unstable angina pectoris
[2021-05-18 07:21] LABS: Basophils # (auto) 0.02 K/uL (0-0.2); Basophils % (auto) 0.3 %; Eosinophils # (auto) 0.37 K/uL (0-0.5); Eosinophils % (auto) 6.2 %; Hemoglobin 13.2 g/dL (14.0-18.0); Immature Granulocytes # (auto) 0.02 K/uL (0.00-0.02); Immature Granulocytes % (auto) 0.3 %; Lymphocytes # (auto) 0.62 K/uL (1.2-3.4); Lymphocytes % (auto) 10.4 %; Mean Corpuscular Hemoglobin 31.6 pg (25-34); Mean Corpuscular Hgb Conc 33.8 g/dL (32-36); Mean Corpuscular Volume 93.3 fL (80-100); Monocytes # (auto) 0.56 K/uL (0.11-0.59); Monocytes % (auto) 9.4 %; Neutrophils # (auto) 4.37 K/uL (1.4-6.5); Neutrophils % (auto) 73.4 %; Platelet Count 207 K/uL (130-400); RDW Coefficient of Variation 13.1 % (11.5-14.5); RDW Standard Deviation 44.4 fL (36.4-46.3); Red Blood Count 4.18 M/uL (4.7-6.1); White Blood Count 5.96 K/uL (4.8-10.8)
[2021-05-18 07:53] LABS: Albumin Level 2.5 gm/dl (3.4-5.0); BUN Creatinine Ratio 12.6 (10-20); Calcium 8.4 mg/dl (8.5-10.1); Creatinine Clr Calc Pharmacy 64.2 ml/min; Est GFR (African American) 72.4 ml/min; Est GFR (Non-African American) 62.4 ml/min; Magnesium 2.2 mg/dl (1.8-2.4); Potassium 3.3 mmol/L (3.5-5.1)
[2021-05-18 07:56] LABS: Albumin Globulin Ratio 0.7 (0.9-2); Bilirubin,Total 1.1 mg/dl (0.2-1); Globulin 3.5 gm/dl (2.5-4.0)
[2021-05-18] MEDS ORDERED: POTASSIUM CHLORIDE CRTAB 20 MEQ TABCR PO STA (08:34)
--- NOTE | 2021-05-18 08:46 | Electrocardiogram Report ---
Test Reason : Blood Pressure : / mmHG Vent. Rate : 065 BPM Atrial Rate : 065 BPM P-R Int : 186 ms QRS Dur : 092 ms QT Int : 414 ms P-R-T Axes : 046 000 104 degrees QTc Int : 430 ms Poor data quality, interpretation may be adversely affected Normal sinus rhythm Indeterminate axis Possible Inferior infarct , age undetermined Abnormal ECG When compared with ECG of 15-MAY-2021 17:06, T wave inversion no longer evident in Inferior leads T wave inversion more evident in Anterior leads Confirmed by Ravindra Milton ([id number]) on 05/18/2021 8:46:01 AM Referred By: REFERRED SELF Confirmed By:Ravindra Milton
[2021-05-18] MEDS: ATORVASTATIN 40 MG TAB PO SCH (08:57)
[2021-05-18] MEDS: ASPIRIN 81 MG ECTAB PO SCH (08:57)
[2021-05-18] MEDS: METOPROLOL SUCC 25MG EXT REL TAB PO SCH (08:57)
[2021-05-18] MEDS: HEPARIN SOD 5,000 UNIT/0.5 ML VIAL SQ SCH (08:58)
[2021-05-18] MEDS: TICAGRELOR 90 MG TAB PO SCH (08:59)
[2021-05-18] MEDS ORDERED: lisinopril 5 MG TAB PO SCH (09:00)
--- NOTE | 2021-05-18 10:41 | Discharge Summary ---
Date of Service May 18, 2021 Admission HPI Per Admitting Provider This pt is a 65 yo male with a h/o aortic sclerosis, knee OA who presented to the ER today after having central chest pain radiating to his arms while exercising and lifting weights this AM. In the ER, he had an ECG which showed ST elevation in anteriolateral leads and then pt had nausea and diaphoresis and sudden collapse. Was in Vfib arrest and had immediate CPR performed by nursing staff, KELVIN Vasquez called. Had 2 rounds of epi, shocked x 1 for VFib, given bolus of amiodarone, then was hypoxic, intubated, had ROSC. Was then bradycardic requiring atropine. Heart alert called and pt was requiring 3 vasopressors upon arrival to wastewater analyst lab analyst. He hadan acute occlusion in LAD and had 2 TAMELA palced. He also had severe diffuse disease in RCA that was not addressed due to acuity presumably and not primary culprit lesion. He was able to be weaned off vasopressors except levophed. He remains on amiodarone gtt, levophed, and on integrilin gtt at time of arrival to ICU. He had a [place] catheter placed, femoral sheath removed and was noted to have a small hematoma in the groin which will need observation. Labs notable for elevated trop initially of 0.44, K+ 3.1,and normal LFTs, lipase. COVID-19 test negative He is admitted to the ICU. He is intubated and lethargic when I saw him and is on propofol and fentanyl. He did move his RLE when I touched it with my cold hands. Educational Psychology Professor reports earlier he was reaching to pull out his ETT. Otherwise, he did not respond to verbal or gentle tactile stimulus Principal Diagnosis STEMI, Cardiogenic shock, Severe CAD, Cardiac arrest (VFib arrest) Discharge Exam Constitutional WD/WN, vitals as above Eyes + anicteric sclerae Neck trachea midline, no thyromegaly Respiratory normal respiratory effort, lungs clear to auscultation Cardiovascular RRR, no murmur, no edema Chest (Breasts) Chest: normal inspection of chest Gastrointestinal (Abdomen) normal bowel sounds, soft, nontender, no hepatosplenomegaly Musculoskeletal Extremities: + extremities abnormal to inspection (Right wrist with dresing c/d/i,no hematoma), no cyanosis and no clubbing Skin no rashes, warm and dry Psychiatric A+Ox3, euthymic affect Lymphatic no lymphedema Discharge Data Allergies Allergy/AdvReac Type Severity Reaction Status Date / Time No Known Drug Allergies Allergy Verified 12/30/20 09:51 Consultations 05/13/21 08:39 Consult Educational Psychology Professor Routine 05/13/21 09:20 ED Decision to Admit Stat 05/13/21 09:47 Consult Educational Psychology Professor Routine Procedures Performed Operation Date: 05/13/21 08:15 Actual Procedures p Aspiration/PCI w/TAMELA for Stemi - Vj Nguyễn MD p Cath, Right and Left Heart - Vj Nguyễn MD s Placement Art Occlusive Device - Vj Nguyễn MD s Cineradiography w/Routine Exam - Vj Nguyễn MD s Ultrasound Vascular Access - Vj Nguyễn MD Operation Date: 05/17/21 12:30 Actual Procedures p Drug Eluting Stent SGl Vessel - Vj Nguyễn MD s Cineradiography w/Routine Exam - Vj Nguyễn MD Ordered Studies 05/13/21 08:02 CL Cath Imgs for PACS use only Stat 05/17/21 08:44 CL Cath Imgs for PACS use only Stat Chest X-Ray 05/13/21 07:58 SINGLE VIEW CHEST CLINICAL HISTORY: Atypical chest pain. Heart alert. FINDINGS: An AP, portable, semierect chest radiograph is compared to study dated 04/26/2019. The examination is degraded by portable technique and apical lordotic positioning. The cardiac silhouette appears enlarged. The pulmonary vasculature is noncongested. There is bibasilar atelectasis. No airspace consolidation or large pleural effusion is identified. No pneumothorax is seen. The skeletal structures appear osteopenic. The bony thorax is grossly intact. Arthritic change is noted in the shoulders. IMPRESSION: Mild cardiac enlargement with no acute cardiopulmonary abnormality. ACT 112: Negative or not required by law. Electronically signed by: Nicolas Kim M.D. 05/13/2021 8:31 AM Chest X-Ray 05/13/21 10:28 SINGLE VIEW CHEST CLINICAL HISTORY: Respiratory failure. Intubation. Status post cardiac arrest. FINDINGS: An AP, portable, supine chest radiograph is compared to study dated performed earlier the same day 05/13/2021. An endotracheal tube has been placed. The tip of the catheter projects approximately 5.5 cm above the carlos. An enteric tube has been placed. The tip projects below the diaphragm over the proximal stomach. The heart appears mildly enlarged. There is pulmonary vascular congestion. Bilateral airspace opacities likely represent interstitial edema. The lungs and pleural spaces are clear. No large pleural effusion or pneumothorax is seen. The skeletal structures are osteopenic. The bony thorax is grossly intact. Degenerative change is noted in the shoulders. IMPRESSION: 1. Endotracheal and enteric tubes have been placed as above. 2. Pulmonary vascular congestion is new from previous, as are bilateral airspace opacities which likely represent pulmonary edema. Clinical correlation will be required. ACT 112: Negative or not required by law. Electronically signed by: Nicolas Kim M.D. 05/13/2021 11:01 AM Chest X-Ray 05/14/21 07:00 XR chest 1V portable HISTORY: 65 years-old Male f/u acute respiratory failure COMPARISON: Chest radiograph 05/13/2021 TECHNIQUE: Portable AP view of the chest FINDINGS: Cardiac silhouette is mildly enlarged. Endotracheal tube overlies the midline, 4.7 cm superior to the carlos. Enteric tube distal tip projects over the gastric fundus. No pneumothorax or large pleural effusion. Pulmonary vascular congestion with decreased interstitial coarsening. Ill-defined mild bibasilar densities. Blunting of the costophrenic angles suggests trace pleural effusions. No pneumothorax. Degenerative changes of the shoulders and spine. IMPRESSION: 1. Satisfactory positioning of the endotracheal and enteric tubes. 2. Cardiomegaly with decreased pulmonary vascular congestion. 3. Mild bibasilar opacities suggest atelectasis versus pneumonitis. ACT 112: Negative or not required by law. The above report was generated using voice recognition software. It may contain grammatical, syntax or spelling errors. Electronically signed by: Donavan Daugherty M.D. 05/14/2021 7:19 AM Chest X-Ray 05/16/21 02:22 XR chest 1V portable CLINICAL HISTORY: increased oxygen requirements with new crackles TECHNIQUE: Single frontal radiograph of the chest was obtained. Comparison: Comparison is made to chest one view 05/14/2021 FINDINGS: Interval removal of endotracheal and enteric tubes. The cardiomediastinal silhouette is normal. Interval development of a right lower lung airspace opacity. Left lower lung airspace opacities are unchanged. No evidence of pleural effusion or pneumothorax. IMPRESSION: Increased right lung base airspace opacities with stable left lower lung airspace opacities. This may represent atelectasis, aspiration, and/or pneumonia. ACT 112: Negative or not required by law. Electronically signed by: Jez Mcclelland M.D. 05/16/2021 7:46 AM Hospital Course (1) Cardiac arrest: Vfib arrest secondary to STEMI, acute LAD occlusion Achieved ROSC after CPR,epi x 2, amiodarone bolus, 2 defib shocks Taken to Loop Cutter, 2 stents in LAD placed acutely -Now status post stenting of residual RCA disease as a staged procedure on 05/17 for residual severe RCA disease seen on first cath -Troponin peaked at 32 -Doing well overall, no arrhythmias on tele through his stay after initial VFib EF on repeat ECHO shows recovery, no LifeVest needed on discharge Has some mild pain with depp inspiration in sternal region from CPR that is improved with incentive spirometry He is ambulating the aparicio without difficulties on day of discharge (2) Cardiogenic shock: With acute systolic failure on admission, with EF initially 25-30% with wall motion abnormalities on echocardiogram shortly after his STEMI Was requiring levophed after STEMI but weaned off fairly quickly Repeat echocardiogram on 05/17 now with normal EF 60-65% and mild distal inferior and distal septal hypokinesis, much improved He was given IV Lasix initially and again on 05/16 for mild hypoxia Chest x-ray with bilateral infiltrates-question if could be atelectasis also given low-grade fevers and splinting due to chest pain from CPR trauma Now weaned off oxygen CRP quite high at 13.1 but could be from recent cardiac arrest -Added incentive spirometry and now lungs clear, no low grade fevers anymore, and no cough with deep inspiration -Encouraged ambulation around the halls after recovery from this cardiac catheterization Blood pressures are now normal (3) Acute respiratory failure with hypoxia: secondary to cardiac arrest and cardiogenic shock, as well as likely some atelectasis as above Received Lasix initially and again on 05/16 Wean off O2 as able to (4) CAD (coronary artery disease), [place] coronary artery: Lipids here are excellent, LDL 71, HDL 64 He really has no traditional risk factors outside of being a male over 45. He is not a diabetic, not hypertensive, exercises 6 days a week including significant cardiovascular, does note that he probably could eat healthier, although it does not sound like his eating habits are atrocious. Status post 2 stents to the LAD for STEMI on presentation Now status post 2 stents to the RCA on 05/17 as a staged procedure -Started aspirin and Brilinta for at least 1 year, but cardiology notes could be extended beyond that given multivessel disease -Started high intensity atorvastatin 80 mg daily -Started Toprol-XL 25 mg daily -Started lisinopril 5 mg p.o. once daily -gave Rx for nitroglycerin for at home use f/u with Cardiology as outpt, will be referred to Cardiac rehab (5) Hypokalemia: Replaced (6) Hematoma: right thigh from procedure-resolved (7) Aortic valve sclerosis: mild, followed with ECHO as outpt with Dr. Mac (8) Degenerative arthritis of knee, bilateral: discontinued home Celebrexdiscussed Tylenol arthritis instead as a preferential, although discussed that in general being able to remain active will be the most important goal DVT prophylaxisheparin subcu Disposition-dc to home Total Time Total Time Spent Total Time Spent (In Minutes): 45 min Total Time Includes: Examination of the Patient, Discharge Planning, Medication Reconciliation and Communication With Other Providers (Cardiology) Discharge Plan Discharge Items Patient Disposition: Home - Self-Care Reason For Visit: HEART ALERT Discharge Diagnosis: STEMI, Cardiac arrest, Severe coronary artery disease Condition on Discharge: Good Activity: As commented below Lifting: None Lifting Comment: no lifting with right hand for 1 week Bathing: No limitations Exercise/Sports: Wait until after follow-up appointment Exercise Comment: you can do light walking Driving/Machine Use: Resume 2 days after discharge Non-emergency contact: Primary Care Provider and Road Machine Runner Call non-emergency contact if: you have any medication questions, your symptoms worsen, your pain is not controlled, you have a fever, your wound has increased redness and your wound has increased drainage Follow-up/Referrals: Huan Mac MD [Physician] - (Please follow up within 1 week) Ravindra Yap MD [Primary Care Provider] - 05/24/21 11:00 am Diet: Heart Healthy Addtl Attending Provider Instructions: You were admitted after having cardiac arrest from a heart attack. You had a total of four stents placed in your heart to open up blockages. You were started on multiple new medications to keep the stents open and to prevent future heart attacks. Please follow the medication list carefully. Dr. Mac will get you set up for Cardiac rehabilitation. If you have recurrence of chest tightness or pressure, please take a nitroglycerin tablet and call 911. If you have shortness of breath, leg swelling, or any other acute concerns, please call Dr. Mac's office for [facility] advice. ACTIVITY RECOMMENDATIONS: Excess manipulation of the wrist should be avoided for the next 24-48 hours. * No lifting over 2 pounds (approximately a 1/2 gallon of milk) with the utilized arm for 24 hours. * No strenuous activity such as bowling or tennis for 3 days. * Keep the site of the procedure covered with a bandage for 24 hours. *You may shower the day after the procedure. Do not take a tub bath or submerge the puncture site in water for the next 3 days. *Do not operate any motorized equipment for 3 days. SPECIAL CARE INSTRUCTIONS: The site may be slightly bruised and sore following your procedure. Should any of the following occur, contact the Dr. who performed your procedure. 1. Redness/inflammation, swelling, chills, or fever, or colored drainage at procedure site within 3-7 days after your procedure. 2. Coldness, discoloration, ongoing numbness, severe pain, or swelling. Expect mild tingling of hand and tenderness at the puncture site for up to three days. If this persists beyond three days, or other symptoms develop, notify the Dr. who performed your procedure. BLEEDING: If the procedure site on your wrist begins to bleed, do not panic 1. Place 1 or 2 fingers firmly just slightly above the insertion site to stop the bleeding. You may be able to feel your pulse as you hold pressure. 2. Lift your finger after 5 minutes to see if the bleeding has stopped. 3. Once the bleeding has stopped, gently wipe the wrist area clean with a bandage. * If the bleeding from your wrist does not stop after 10 minutes, or if there is a large amount of bleeding or spurting, call 911 (do not drive yourself to the hospital). SKIN IRRITATION: * You may experience some redness and/or swelling in the area where radiation was administered. If any skin irritation occurs, please contact your family physician. FOLLOW UP VISIT: Keep any scheduled doctor appointments. Home Care: * Take your medications exactly as directed. Don't skip doses. * Remember that recovery after a heart attack takes time. Plan to rest for at lease 4-8 weeks while you recover. Then return to normal activity when your doctor says it's okay. * Ask your doctor about joining a heart rehabilitation program. * Tell your doctor if you are feeling depressed. Feelings of sadness are common after a heart attack, but it is important that you speak to someone if you are feeling overwhelmed by these feelings. * If you are having chest pain, call 911 for an ambulance. Do NOT drive yourself to the hospital. * Ask your family members to learn CPR. * Learn to take your own blood pressure and pulse. Keep a record of your results. Ask your doctor when you should seek emergency medical attention. He or she will tell you which blood pressure reading is dangerous. Lifestyle Changes: * Maintain a healthy weight. Get help to lose any extra pounds. * Cut back on salt. * Limit canned, dried, packaged, and fast foods. * Don't add salt to your food. * Season foods with herbs instead of salt when you cook. * Break the smoking habit. Enroll in a stop-smoking program to improve your chances of success. * Limit fatty foods. * Ask your doctor about having your lipid levels checked regularly. * Build up your activity according to your doctor's recommendation. * Ask your doctor when it's okay to resume sexual activity. * Tell your doctor about any erectile dysfunction (ED) medication you are taking. Some ED medications are not safe if you take certain heart medications. * Try to manage stress. Follow Up: It is important for you to keep your follow up appointments with your medical provider. Pending Studies at Discharge: No Stand-Alone Forms: [facility] Medications and DC Order Prescriptions: New Brilinta 90 mg Tablet 90 mg PO BID Qty: 60 RF: 0 atorvastatin 80 mg tablet 80 mg PO DAILY Qty: 30 RF: 0 nitroglycerin [Nitrostat] 0.4 mg Tablet, Sublingual 0.4 mg sublingual UD PRN (Reason: chest pain) Qty: 20 RF: 0 lisinopril [Zestril] 5 mg Tablet 5 mg PO QAM Qty: 30 RF: 0 metoprolol succinate 25 mg Tablet Extended Release 24 Hr 25 mg PO DAILY Qty: 30 RF: 0 acetaminophen 325 mg Tablet 650 mg PO Q4H PRN (Reason: pain) Qty: 30 RF: 0 aspirin 81 mg Tablet,Delayed Release (Dr/Ec) 81 mg PO QAM Qty: 30 RF: 0 Continued amoxicillin 500 mg tablet 2,000 mg PO ONCE Qty: 4 RF: 2 Discontinued celecoxib [Celebrex] 100 mg capsule 100 mg PO QAM PRN (Reason: pain) Qty: 90 RF: 3 Discharge Orders: Discharge Order (Routine); Ordered 05/18/21 Ordered By: Zora Atkinson Admission Data Admit Date/Time: 05/13/21 08:37 Attending Provider: Zora Atkinson Admit Provider: Vj Nguyễn Primary Care Provider: Ravindra Yap Other Providers: Zeke Messina ; Zora Atkinson Coding Level of Care Code D/C DAY MANAGEMENT >30 MINS Diagnoses Cardiac arrest I46.9 Cardiogenic shock R57.0 Acute respiratory failure with hypoxia J96.01 CAD (coronary artery disease), [place] coronary artery I25.110 Associated angina: with unstable angina [place] vs. transplanted heart: [place] heart Hypokalemia E87.6 Hematoma T14.8XXA Aortic valve sclerosis I35.8 Degenerative arthritis of knee, bilateral M17.0
--- NOTE | 2021-05-18 13:06 | Cardiology Progress Note ---
Date of Service May 18, 2021 Assessment & Plan (1) ST elevation (STEMI) myocardial infarction: Plan: -s/p 2 overlapping TAMELA in the mid LAD. -troponin peaked at 32.2. -continue metoprolol succinate, lisinopril, aspirin, and ticagrelor. -continue high-dose atorvastatin. (2) CAD (coronary artery disease), [place] coronary artery: Plan: -staged PCI of mid and distal RCA lesions yesterday. -3 x 22 TAMELA in the mid RCA, 2.25 x 22 TAMELA in the distal RCA. -other disease included 30% ostial LAD, 50% ostial D1. -medical management as noted above. -stable for hospital discharge. (3) Ischemic cardiomyopathy: Plan: -LVEF of 20-25% with a large anterior wall motion abnormality on admission. -repeat echocardiogram notes is subtle wall motion abnormality and normal LVEF of 60-65%. -continue metoprolol succinate and lisinopril. Admission and Anticipated Discharge Date Admission Date: May 13, 2021 Subjective The patient is resting comfortably in bed without complaints of chest pain or dyspnea. He is anxious for hospital discharge. Physical Exam Physical Exam: In general this is a well-developed well-nourished white male in no acute distress. HEENT exam is negative. Neck is supple with full carotid upstrokes. There are no carotid bruits. No JVD. There is no thyromegaly. Cardiovascular exam reveals a regular rhythm with a normal S1 and S2. No obvious murmurs. No S3. Abdomen is soft and nontender without bruits. Extremities reveal intact radial artery and posterior tibial pulses bilaterally. There is no peripheral edema. 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 PG Care Time/CCT Total # of Minutes Spent Total Time Spent with Patient: Total time spent is greater than 50% in coordination of care (as documented) at patient's floor/unit and/or counseling patient: Coding Level of Care Code 16044 Subseq Hosp Care Lvl [address] elevation (STEMI) myocardial infarction I21.02 Involved coronary artery: LAD coronary artery CAD (coronary artery disease), [place] coronary artery I25.110 Associated angina: with unstable angina [place] vs. transplanted heart: [place] heart Ischemic cardiomyopathy I25.5 (1) ST elevation (STEMI) myocardial infarction Involved coronary artery: LAD coronary artery Qualified Code(s): I21.02 - ST elevation (STEMI) myocardial infarction involving left anterior descending coronary artery (2) CAD (coronary artery disease), [place] coronary artery Associated angina: with unstable angina [place] vs. transplanted heart: [place] heart Qualified Code(s): I25.110 - Atherosclerotic heart disease of [place] coronary artery with unstable angina pectoris
== END 2021-05-18 12:18 | disposition home or self-care (01) | DRG 246 ==
LOC: ED 07:43 → CC 08:31 → SUATTDRO 08:37 → 1E 08:37 → CC 09:03 → 2S 05-16 16:36